=== PATIENT | male | born 1970 | race Caucasian/White ===

== ENCOUNTER 2017-11-15 09:55 | Observation (INO) | payer MEDICAID, OTHER ==
[2017-11-15] MEDS ORDERED: LR 1,000 ML IV ONE (10:02)
--- NOTE | 2017-11-15 10:08 | PDHPUP ---
History & Physical Update H&P update statement: This history and physical update is based on an assessment of the patient which was completed after admission or registration (within 24 hours), but prior to the surgery/procedure. H&P update: H&P reviewed & patient examined, no change in patient's condition since H&P completed
[2017-11-15] MEDS ORDERED: ONDANSETRON 4 MG/2 ML VIAL IVP PRN ×2 (10:11→12:10)
[2017-11-15] MEDS ORDERED: MIDAZOLAM 2 MG/2 ML VIAL IVP ONE (10:11)
[2017-11-15] MEDS ORDERED: ALBUTEROL 3 ML DEYVIAL IH PRN (10:11)
[2017-11-15] MEDS ORDERED: HYDROCODONE/APAP 5/325 TAB PO PRN (10:11)
[2017-11-15] MEDS ORDERED: NALOXONE HCL 0.4 MG/ML INJ IVP PRN (10:11)
[2017-11-15] MEDS ORDERED: HYDROmorphONE/DILAUDID 2 MG/ML INJ IVP PRN (10:11)
--- NOTE | 2017-11-15 10:11 | PDANEPAE ---
ANE History of Present Illness Inguinal Hernia Repair ANE Past Medical History - Cardiovascular History Hx Hypertension: No Hx Arrhythmias: No - Pulmonary History Hx COPD: No Hx Asthma/Reactive Airway Disease: No ANE Review of Systems Review of Systems: - Exercise capacity Exercise capacity: >=4 METS ANE Patient History - Allergies Allergies/Adverse Reactions: No Known Allergies Allergy (Verified 11/12/17 15:52) - Home Medications Home Medications: NK [No Known Home Meds] 11/12/17 [Last Taken Unknown] ANE Physical Exam - Airway Neck exam: FROM Mallampati Score: Class 2 - Pulmonary Pulmonary: clear to auscultation - Cardiovascular Cardiovascular: regular rate and rhythym - ASA Status ASA Status: II ANE Anesthesia Plan Anesthesia Plan: general endotracheal anesthesia
--- NOTE | 2017-11-15 11:30 | POSTANESTH ---
Post Anesthetic Evaluation Cardiovascular Status: Normal, Stable Respiratory Status: Normal, Stable Level of Consciousness/Mental Status: Mildly Sleepy, Arousable Pain Control: Adequate, Prn Tx Ordered Nausea/Vomiting Control: Adequate, Prn Tx Ordered Complications Possibly Related to Anesthesia: None Noted
[2017-11-15] MEDS ORDERED: LIDOCAINE 1% 300 MG/30 ML SDV ONE (11:33)
[2017-11-15] MEDS ORDERED: BUPIVACAINE 0.5% 30 ML SDV ONE (11:33)
[2017-11-15] MEDS: fentaNYL 100 MCG/2 ML INJ IVP PRN ×4 (11:40→12:43)
[2017-11-15] MEDS ORDERED: METOCLOPRAMIDE 10 MG/2 ML VIAL IVP PRN (12:10)
[2017-11-15] MEDS ORDERED: TEMAZEPAM 15 MG CAP PO PRN (12:10)
[2017-11-15] MEDS ORDERED: ACETAMINOPHEN 325 MG TAB PO PRN (12:10)
--- NOTE | 2017-11-15 12:10 | POSTOPPROG ---
Post Op Note Date of Operation: 11/15/17 Surgeon: Remi Isaac Sales Intern: none Anesthesiologist: Maegan Anesthesia: GET(General Endotracheal) Pre-op Diagnosis: BIH Post-op Diagnosis: same Procedure: Lap BIH repair with 3-D max mesh Findings: L>R Indirect IH Inf/Abcess present in the surg proc area at time of surgery?: No Complications: none Specimen(s): none
[2017-11-15] MEDS: KETOROLAC 15 MG/1 ML SDV IVP SCH ×2 (12:40→17:19)
[2017-11-15] MEDS: oxyCODONE IR 5 MG TAB PO PRN ×2 (16:17→22:11)
[2017-11-16] MEDS: KETOROLAC 15 MG/1 ML SDV IVP SCH ×3 (00:37→11:56)
[2017-11-16 11:53] VITALS: BP 126/85
--- NOTE | 2017-11-16 17:15 | ASMTCMCOM ---
CM Note CM Note Notes: Pt is a 47 y/o man admitted for a unilateral inguinal hernia w/o obstruction. Pt had hernia surgery with Dr. Isaac. Pt is being discharged today. Dr. Isaac requested that CM reserves a [facility] bed for pt for 5 days. CM emailed Kulwinder, director of [facility] services to reserve bed and left a msg for the [facility]. 3E CM to reserve [facility] bed for pt for the next 4 nights. CM will pass on report to 3E CM. No other d/c needs at this time. CM available for changes. Plan: Independent Date Signed: 11/16/2017 03:08 PM Electronically Signed By:JAYLA Montoya
== END 2017-11-16 14:09 | disposition home or self-care (01) ==
LOC: F3N 09:55 → F3E 12:58
PROVIDERS: ADMIT Surgery; ATTEND Surgery
PROC: 0YUA4JZ Supplement Bilateral Inguinal Region with Synthetic Substitute, Percutaneous Endoscopic Approach (ICD-10-PCS; principal; 2017-11-15 11:00)
DX: K40.20 Bilateral inguinal hernia, without obstruction or gangrene, not specified as recurrent (principal); Z87.891 Personal history of nicotine dependence; Z82.49 Family history of ischemic heart disease and other diseases of the circulatory system
CPT/HCPCS: C1727; C1781; J1885

== ENCOUNTER 2018-02-01 09:19 | Inpatient (IN) | payer MEDICAID ==
--- NOTE | 2018-02-01 09:53 | EDPHY ---
H & P Stated Complaint: L facial swelling, Rash Time Seen by Provider: 02/01/18 09:42 HPI/ROS: CHIEF COMPLAINT: Cheek wound HISTORY OF PRESENT ILLNESS: The patient is a 47-year-old homeless alcoholic man who is sent from [facility] for what they thought may be an abscess to his left cheek. On my evaluation the patient complains of an eschar and very slight swelling to the mucosal aspect of his left cheek and mouth. He has 3 separate eschar areas. He states he 1st noticed it about 2 or 3 days ago. He denies any recent surgical procedure in the area. He denies seizures or biting his mouth. He is also covered in small petechiae which she states developed over the last week as well as some unusual bruising to his left elbow. He states that he thought he got into some poison mary. No abdominal pain. No fever. REVIEW OF SYSTEMS: Constitutional: denies: chills, fever, recent illness, recent injury EENTM: See HPI Respiratory: denies: cough, shortness of breath Cardiac: denies: chest pain, irregular heart rate, lightheadedness, palpitations Gastrointestinal/Abdominal: denies: abdominal pain, diarrhea, nausea, vomiting, blood streaked stools Genitourinary: denies: dysuria, frequency, hematuria, pain Musculoskeletal: denies: joint pain, muscle pain Skin: See HPI Neurological: denies: headache, numbness, paresthesia, tingling, dizziness, weakness Hematologic/Lymphatic: denies: blood clots, easy bleeding, easy bruising Immunologic/allergic: denies: HIV/AIDS, transplant EXAM: GENERAL: Thin and in no acute distress. HEAD: Atraumatic, normocephalic. EYES: Pupils equal round and reactive to light, extraocular movements intact, sclera anicteric, conjunctiva are normal. ENT: Eschar/scab to mucosal aspect of left cheek. Slightly tender, bleeding if palpated. No purulence. No erythema. Minimal swelling. NECK: Normal range of motion, supple without lymphadenopathy or JVD. LUNGS: Breath sounds clear to auscultation bilaterally and equal. No wheezes rales or rhonchi. HEART: Regular rate and rhythm without murmurs, rubs or gallops. ABDOMEN: Soft, nontender, normoactive bowel sounds. No guarding, no rebound. No masses appreciated. BACK: No CVA tenderness, no spinal tenderness, step-offs or deformities EXTREMITIES: Normal range of motion, no pitting or edema. No clubbing or cyanosis. NEUROLOGICAL: Cranial nerves II through XII grossly intact. Normal speech, normal gait. 5/5 strength, normal movement in all extremities, normal sensation PSYCH: Normal mood, normal affect. SKIN: Diffuse petechiae with some unusual bruising primarily to his left elbow. Source: Patient Exam Limitations: No limitations - Personal History Current Tetanus/Diphtheria Vaccine: Yes Current Tetanus Diphtheria and Acellular Pertussis (TDAP): Yes - Medical/Surgical History Hx Asthma: No Hx Chronic Respiratory Disease: No Hx Diabetes: No Hx Cardiac Disease: No Hx Renal Disease: No Hx Cirrhosis: No Hx Alcoholism: Yes Hx HIV/AIDS: No Hx Splenectomy or Spleen Trauma: No Other PMH: Right hand surgery, right wrist, YULY hernia repair, - Family History Significant Family History: No pertinent family hx - Social History Smoking Status: Current every day smoker Alcohol Use: Heavy Drug Use: Marijuana Constitutional: Initial Vital Signs Temperature (C) 36.6 C 02/01/18 09:23 Heart Rate 74 02/01/18 09:23 Respiratory Rate 16 02/01/18 09:23 Blood Pressure 150/98 H 02/01/18 09:23 O2 Sat (%) 97 02/01/18 09:23 O2 Delivery Mode Room Air Allergies/Adverse Reactions: No Known Allergies Allergy (Verified 02/01/18 09:22) Home Medications: Medication Instructions Recorded Ibuprofen [Motrin (*)] 200 mg PO DAILY PRN 02/01/18 Medical Decision Making - Diagnostics Imaging Results: Imaging Impressions Face CT 02/01/18 09:48 Impression: 1. Left cheek subcutaneous edema which may represent cellulitis. 2. However, no evidence of drainable abscess or focal fluid collection. 3. A few left submandibular space benign-appearing lymph nodes without suspicious adenopathy. 4. No destructive osseous lesions. 5. No sinusitis. Findings and recommendations discussed with Emergency Department physician, Pantera Blackmon at 1120 hour, 02/01/2018. Final report concurs with initial preliminary interpretation. Imaging: Discussed imaging studies w/ assurance engineer Radiologist ED Course/Re-evaluation: Patient has an unusual oral lesion that does not appear infectious clinically. He is very low platelets and petechiae. He has some surprisingly normal LFTs and coags. I will order platelet transfusion and admit to the hospitalist service. I discussed the case with Alyssa who accepted for Dr. Chaves. Differential Diagnosis: Partial list of the Differential diagnosis considered include but were not limited to; thrombocytopenia, liver disease, or cancer, oral trauma and although unlikely based on the history and physical exam, I also considered abscess, cellulitis. - Data Points Laboratory Results: Laboratory Results 02/01/18 10:52 02/01/18 10:00 02/01/18 02/01/18 02/01/18 10:52 10:00 10:00 WBC 3.73 10^3/uL L 10^3/uL (3.80-9.50) RBC 3.83 10^6/uL L 10^6/uL (4.40-6.38) Hgb 12.3 g/dL L g/dL (13.7-17.5) Hct 36.0 % L % (40.0-51.0) MCV 94.0 fL fL (81.5-99.8) MCH 32.1 pg pg (27.9-34.1) MCHC 34.2 g/dL g/dL (32.4-36.7) RDW 15.0 % % (11.5-15.2) Plt Count < 3 10^3/uL L* 10^3/uL (150-400) MPV TNP Neut % (Auto) 57.7 % % (39.3-74.2) Lymph % (Auto) 33.0 % % (15.0-45.0) [place] % (Auto) 7.2 % % (4.5-13.0) Eos % (Auto) 1.3 % % (0.6-7.6) Baso % (Auto) 0.5 % % (0.3-1.7) Nucleat RBC Rel Count 0.0 % % (0.0-0.2) Absolute Neuts (auto) 2.15 10^3/uL 10^3/uL (1.70-6.50) Absolute Lymphs (auto) 1.23 10^3/uL 10^3/uL (1.00-3.00) Absolute Monos (auto) 0.27 10^3/uL L 10^3/uL (0.30-0.80) Absolute Eos (auto) 0.05 10^3/uL 10^3/uL (0.03-0.40) Absolute Basos (auto) 0.02 10^3/uL 10^3/uL (0.02-0.10) Absolute Nucleated RBC 0.00 10^3/uL 10^3/uL (0-0.01) Immature Gran % 0.3 % % (0.0-1.1) Immature Gran # 0.01 10^3/uL 10^3/uL (0.00-0.10) Platelet Estimate DECREASED L (ADEQ) Smear Review By Pending PT INR APTT Sodium 144 mEq/L mEq/L (135-145) Potassium 4.4 mEq/L mEq/L (3.3-5.0) Chloride 108 mEq/L mEq/L (97-110) Carbon Dioxide 25 mEq/l mEq/l (22-31) Anion Gap 11 mEq/L mEq/L (8-16) BUN 16 mg/dL mg/dL (7-23) Creatinine 0.6 mg/dL L mg/dL (0.7-1.3) Estimated GFR > 60 Glucose 104 mg/dL H mg/dL (70-100) Calcium 8.6 mg/dL mg/dL (8.5-10.4) Total Bilirubin 0.8 mg/dL mg/dL (0.1-1.4) Conjugated Bilirubin 0.1 mg/dL mg/dL (0.0-0.5) Unconjugated Bilirubin 0.7 mg/dL mg/dL (0.0-1.1) AST 45 IU/L IU/L (17-59) ALT 29 IU/L IU/L (21-72) Alkaline Phosphatase 86 IU/L IU/L (38-126) Total Protein 6.9 g/dL g/dL (6.3-8.2) Albumin 4.1 g/dL g/dL (3.5-5.0) Lipase 48 IU/L IU/L (23-300) HIV 1&2 Antibody Cancelled 02/01/18 02/01/18 10:00 10:00 WBC REJ RBC REJ Hgb REJ Hct REJ MCV REJ MCH REJ MCHC REJ RDW REJ Plt Count REJ MPV REJ Neut % (Auto) REJ Lymph % (Auto) REJ [place] % (Auto) REJ Eos % (Auto) REJ Baso % (Auto) REJ Nucleat RBC Rel Count REJ Absolute Neuts (auto) REJ Absolute Lymphs (auto) REJ Absolute Monos (auto) REJ Absolute Eos (auto) REJ Absolute Basos (auto) REJ Absolute Nucleated RBC REJ Immature Gran % REJ Immature Gran # REJ Platelet Estimate Smear Review By PT 13.5 SEC SEC (12.0-15.0) INR 1.01 (0.83-1.16) APTT 23.8 SEC SEC (23.0-38.0) Sodium Potassium Chloride Carbon Dioxide Anion Gap BUN Creatinine Estimated GFR Glucose Calcium Total Bilirubin Conjugated Bilirubin Unconjugated Bilirubin AST ALT Alkaline Phosphatase Total Protein Albumin Lipase HIV 1&2 Antibody Medications Given: Discontinued Medications Acetaminophen (Tylenol) 650 mg PO ONCE ONE Stop: 02/01/18 14:01 Last Admin: 02/01/18 14:53 Dose: 650 mg Diphenhydramine HCl (Benadryl) 25 mg PO ONCE ONE Stop: 02/01/18 14:01 Last Admin: 02/01/18 14:53 Dose: 25 mg Departure - Departure Disposition: [facility] Acute Clinical Impression: Oral mucosal lesion, Thrombocytopenia Condition: Fair
[2018-02-01 10:21] LABS: INR 1.01 (0.83-1.16); PROTIME(PATIENT) 13.5 SEC (12.0-15.0)
[2018-02-01] MEDS ORDERED: IOPAMIDOL (ISOVUE-300) 100 ML BTL ONE (10:46)
[2018-02-01 11:27] LABS: PLATELET COUNT < 3 10^3/uL (150-400)
[2018-02-01] MEDS ORDERED: ONDANSETRON DISINTEGRATING 4 MG TAB PO PRN (11:50)
[2018-02-01] MEDS ORDERED: ONDANSETRON 4 MG/2 ML VIAL IVP PRN (11:50)
--- NOTE | 2018-02-01 13:10 | GHP ---
[f rep st] HISTORY AND PHYSICAL DATE OF ADMISSION: 02/01/2018 CHIEF COMPLAINT: Thrombocytopenia. HISTORY OF PRESENT ILLNESS: A 47-year-old homeless male, sent from [facility] for a concern of an abscess of left cheek. He thought he got poison mary , because he developed dark red/purplish blotchy spots all over his body after being in the [place]. Has had swelling inner left cheek that has progressed over last couple of days. It is mildly tender. No fevers, chills, or sweats. No nausea, vomiting, or diarrhea. No headaches. No vision changes. No weight gain or loss. Was bit by a dog on right calf a few weeks ago that was swollen, but grossly red or purulent. REVIEW OF SYSTEMS: I completed a 10-point review of systems and negative except as noted in the HPI. PAST MEDICAL HISTORY: None. PAST SURGICAL HISTORY: Bilateral hernia repair. FAMILY HISTORY: His dad of an [place] and mother with breast cancer and skin cancer. MEDICATIONS: None. ALLERGIES: None. SOCIAL HISTORY: He is homeless. He stays in the retirement. He worked various jobs. Drinks a few beers a day. Does have some binge drinking. Smokes marijuana. Denies other illicits. Has not been sexually active for 3 years. PHYSICAL EXAMINATION: VITAL SIGNS: Temperature 36.6, blood pressure is 150/98 , heart rate is in the 70s, respirations , and 96% on room air. GENERAL: He well appearing. Anxious. Lying in bed. In no acute distress. HEENT: PERRLA. Left inner buccal mucosa with a dark, raised hematoma. Minimal surrounding erythema. There is no purulence. He has some swelling over that cheek, but no redness. Other petechiae over the palate. CV: Regular rate and rhythm. LUNGS: Clear. ABDOMEN: No hepatosplenomegaly. : No Holder. MUSCULOSKELETAL: 5/5 upper and lower extremity strength. SKIN: Petechiae over all extremities, back, and abdomen. He has a bruise over his right monte, a site of previous dog bite. Hematoma over the arms and lower legs. PSYCHIATRIC: Alert and oriented x3. NEUROLOGIC: 2 through 12 are intact. LABORATORIES: WBC 3, hemoglobin 12, hematocrit 36, platelets less than 3. Coags are within normal. Sodium 141, potassium 4.4, chloride 108, carbon dioxide 25, creatinine 0.6, glucose 104. LFTs are normal. Lipase is normal. HIV and hepatitis are pending. Face CT: Left cheek subcutaneous edema. No drainable abscess or focal fluid collection. Few left submandibular space benign-appearing lymph nodes. ASSESSMENT AND PLAN: 1. Thrombocytopenia: DDx: ITP, alcohol, malignancy, infection. Mouth lesion appears to be hematoma and not infection, no abscess on CT. Afebrile. Did have a dog bite a few weeks ago over his right calf, but this area looks healed and denied infectious symptoms. Not on offending medications. Check HIV, hepatitis C , folate, and B12. Smear is pending. Discussed the case with Dr. Scott who will consult. Now recs IVIG 1gm/kg. 2. Concern for facial abscess: buccal hematoma, no abscess on CT 3. Alcohol use. drinks daily. He was counseled on cessation. Monitor for alcohol withdrawal. None now. 4. Tobacco dependence. Nicotine patch. 5. Marijuana use. Counseled on cessation. 6. Diet. Regular. 7. DVT prophylaxis. Ambulatory. No SCDs or Lovenox with severe thrombocytopenia. DISPOSITION: The patient warrants inpatient admission given the acute thrombocytopenia and the high risk for significant bleeding, requiring further evaluation by Oncology and IVIG /[id number]/MODL MTDD
[2018-02-01] MEDS ORDERED: ACETAMINOPHEN 325 MG TAB PO ONE (14:00)
[2018-02-01] MEDS ORDERED: diphenhydrAMINE 25 MG CAP PO ONE (14:00)
[2018-02-01] MEDS ORDERED: IMMUNE GLOBULIN 20 GM/200 ML VIAL IV ONE (14:30)
[2018-02-01 14:31] LABS: HEPATITIS C ANTIBODY TOTAL NEGATIVE (NEGATIVE); HIV TYPE 1 AND 2 NEGATIVE (NEGATIVE)
--- NOTE | 2018-02-01 14:42 | GCON ---
[f rep st] CONSULTATION HEMATOLOGY CONSULT REASON FOR CONSULTATION: Thrombocytopenia. HISTORY OF PRESENT ILLNESS: Ilya is a 47-year-old otherwise healthy gentleman, who had noticed ov er the last 7-10 days, purplish spots over his arms and legs. He also was bit by a dog about a week ago and developed a hematoma back there. He otherwise had been feeling well with no constitutional s ymptoms. He had a nose bleed, but no other bleeding. However, the last couple days, he developed th e same purplish lesions in his mouth, particularly a large 1 on the left buccal membrane. He initial ly thought maybe it was a rash from an exposure such as poison mary and since it was not getting harjit r, he presented to the emergency room. While there, a CBC was performed that showed he had a very lo w platelet count. He is admitted to the hospital for treatment. PAST MEDICAL HISTORY: ALLERGIES: No known drug allergies. HOME MEDICATIONS: Really just occasional ibuprofen. CHRONIC ILLNESSES: Are none. SURGICAL HISTORY: Includes inguinal hernia repair 2 months ago. FAMILY HISTORY: Mother is alive, he believes, he is not in contact with her. She has a previous his tory of breast cancer. Father at age 70 from an [place]. He does not have children. SOCIAL HISTORY: He is single. He is originally from [place] and grew up here. However, he is homel ess because he cannot afford to live here. He smoked since age 15, off and on but generally quit. H as about a 25-30 pack year history. Used to drink heavy alcohol past, until a friend about 7 ye ars ago. Since then, he has on average a couple of beers a day. He works general accounting clerk jobs locally . REVIEW OF SYSTEMS: 10-point review of systems performed. Pertinent positives as per HPI, otherwise negative. PHYSICAL EXAM: VITAL SIGNS: Temp is 36.8, pulse 77, blood pressure is 120/83. GENERAL: He is a wel l-appearing gentleman, no distress. HEENT: Sclerae nonicteric. Extraocular muscles are intact. Ora l mucosa does show several purpuric lesions. LUNGS: Clear. CARDIAC: Regular. ABDOMEN: Soft, with out hepatosplenomegaly. MUSCULOSKELETAL: Nontender. NEUROLOGICAL: Grossly intact. SKIN: Shows m ultiple petechiae and bruising and purpura throughout. LABS: Coags are normal. Chemistry is unremarkable. B12 and folic acid were normal. CBC: White cou nt 3700, with an ANC of 2200, hemoglobin is 12.3 g/dL, platelet count is less than 3, and the smear e stimate shows it is decreased. Because of concern of a lesion on his cheek he had a face CT that shows a little bit of edema, but no abscess and otherwise unremarkable. IMPRESSION: 1. 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 2. Minimally decreased white count and red count. PLAN: At this point, it looks to be just an acute ITP of unknown cause, but there is nothing on exam to indicate that it is secondary ITP. He does have wet purpura that puts him very high risk of inte rnal bleeding, so I have recommended admission to the hospital and treatment with IVIG. He is not cu rrently actively bleeding, so he does not need a transfusion at this time. I also recommend starting steroids with high-dose dexamethasone 40 mg daily for 4 days. If he has a good response to this, we can repeat it for at least a couple more cycles in 2-3 weeks. I also explained to him that these ca n be related to underlying disorder, so we will be getting other labs such as HIV and hepatitis testi ng. At this point, I do not think he needs a bone marrow biopsy, but if he does not respond as expec ese, or other abnormalities show up, then may need to do that in the future. If he has an excellent response overnight, he might be able to go home, but will make that decision in the morning. I expla ined the risks of each of the treatments and he is ready to proceed on. /[id number]/MODL
[2018-02-01] MEDS: DEXAMETHASONE 4 MG TAB PO SCH (15:25)
--- NOTE | 2018-02-01 15:32 | PDMN ---
Medical Necessity Medical necessity: Pt meets inpt criteria per MD order and hematology GRG, est LOS>2MN for further workup and treatment of acute thrombocytopenia w/plt count severly low at <3, high risk for bleeding, hemeatology consult, will receive IVIG, also presents with mouth lesion, other comorbidities include homelessness , daily alcohol use-monitor for WD.
--- NOTE | 2018-02-01 16:01 | ASMTCMCOM ---
CM Note CM Note Notes: Pt's chart reviewed for D/C planning. Pt is a 47 y/o homeless male, sent from [facility] for a concern of an abcess of left cheek. Swelling of inner left cheek has progressed over last couple of days. Pt stays in [facility]. He's worked various jobs. He states that he sometimes binge drinks in addition to drinking a few beers a day. He smokes marijuana. His mother's number is [phone]. The quality of the relationship is unknown. CM will follow. D/C Plan: TBD Date Signed: 02/01/2018 04:00 PM Electronically Signed By:Lulu Avina
[2018-02-01 16:06] LABS: HEPATITIS B SURFACE ANTIGEN NEGATIVE (NEGATIVE)
--- NOTE | 2018-02-01 17:42 | ASMTCMCOM ---
Date Signed: 02/01/2018 05:41 PM Electronically Signed By:Jolene Nagy RN
[2018-02-02 04:54] LABS: PLATELET COUNT < 3 10^3/uL (150-400)
[2018-02-02] MEDS: DEXAMETHASONE 4 MG TAB PO SCH (08:55)
--- NOTE | 2018-02-02 11:33 | SOAPPROG ---
LEE Progress Note Assessment/Plan: E&M for thrombocytopenia * Presumed acute ITP: platelet count is still low only 12 hours after starting steroids and IVIg. However, clinically he seems to be starting to improve. Continue steroids. Will check cbc in am and if still very low, will give another dose of IVIg; sometimes takes up to 72 hours to take effect. Other labs coming back unremarkable. No need for transfusion at this time. Subjective: Tolerated dex and IVIg without significant issues. Has noticed bruising and petechiae is getting better. Objective: Vital Signs Temp Pulse Resp BP Pulse Ox 36.7 C 68 12 128/90 H 97 02/02/18 08:58 02/02/18 08:58 02/02/18 08:58 02/02/18 08:58 02/02/18 08:58 Laboratory Results 02/02/18 03:59 02/01/18 02/02/18 02/03/18 05:59 05:59 05:59 Intake Total 550 Output Total 700 Balance -150 PT 13.5 SEC (12.0-15.0) 02/01/18 10:00 INR 1.01 (0.83-1.16) 02/01/18 10:00 Laboratory Tests 02/01/18 02/01/18 02/01/18 10:52 12:05 12:05 WBC 3.73 L Hgb 12.3 L Plt Count < 3 L* Vitamin B12 406 Hep Bs Antigen Hepatitis C Antibody NEGATIVE HIV 1&2 Antibody NEGATIVE 02/01/18 02/02/18 14:30 03:59 WBC 3.50 L Hgb 12.1 L Plt Count < 3 L* Vitamin B12 Hep Bs Antigen NEGATIVE Hepatitis C Antibody HIV 1&2 Antibody Physical Exam - Physical Exam General Appearance: no apparent distress EENT: other (purpura is healing) Respiratory: lungs clear Cardiac/Chest: regular rate, rhythm Skin: other (petechiae is improved) ICD10 Worksheet Patient Problems: Problems Problem Status Onset Oral mucosal lesion Acute Thrombocytopenia Acute
--- NOTE | 2018-02-02 13:41 | HOSPPROG ---
Hospitalist Progress Note Assessment/Plan: #Acute ITP -etiology unclear -Steroids and IVIG per Hematology #hx of ETOH use, not in WD #Tobacco abuse disorder -nicotine replacement #Marijuana use Plan: repeat labs in a.m. cont steroids further IVIG per Heme no indications for transfusion at this time Subjective: no cp or sob. no n/v. Objective: Vital Signs Temp Pulse Resp BP Pulse Ox 36.7 C 87 12 126/70 H 97 02/02/18 12:20 02/02/18 12:20 02/02/18 12:20 02/02/18 12:20 02/02/18 12:20 Laboratory Results 02/02/18 03:59 02/01/18 02/02/18 02/03/18 05:59 05:59 05:59 Intake Total 550 Output Total 700 Balance -150 PT 13.5 SEC (12.0-15.0) 02/01/18 10:00 INR 1.01 (0.83-1.16) 02/01/18 10:00 - Physical Exam Constitutional: no apparent distress Eyes: PERRL Ears, Nose, Mouth, Throat: moist mucous membranes, hearing normal Cardiovascular: regular rate and rhythym, No edema Respiratory: no respiratory distress, no rales or rhonchi, clear to auscultation Gastrointestinal: normoactive bowel sounds, soft, non-tender abdomen Skin: warm Neurologic: AAOx3 Psychiatric: interacting appropriately, not anxious, not encephalopathic Lymph, Heme, Immunologic: No petechiae ICD10 Worksheet Patient Problems: Problems Problem Status Onset Oral mucosal lesion Acute Thrombocytopenia Acute
[2018-02-03 05:00] LABS: PLATELET COUNT < 3 10^3/uL (150-400)
[2018-02-03] MEDS: DEXAMETHASONE 4 MG TAB PO SCH (08:47)
--- NOTE | 2018-02-03 11:37 | SOAPPROG ---
SOAP Progress Note Assessment/Plan: E&M for thrombocytopenia * Presumed acute ITP: platelet count is still low 36 hours after starting steroids and IVIg. Mouth is better but with new bruising and nose bleed. Will give another dose of IVIg along with unit of platelets. Will continue steroids. Will immunize in case want to give rituximab. If not improving but bleeding stops, can look into outpatient N-plate. Subjective: Having more bleeding and bruising. Cannot get nose bleed to stop which is worrying him. Objective: Vital Signs Temp Pulse Resp BP Pulse Ox 36.7 C 62 12 110/72 97 02/03/18 07:55 02/03/18 07:55 02/03/18 07:55 02/03/18 07:55 02/03/18 07:55 Laboratory Results 02/03/18 04:23 02/03/18 04:23 02/02/18 02/03/18 02/04/18 05:59 05:59 05:59 Intake Total 550 500 Output Total 700 Balance -150 500 PT 13.5 SEC (12.0-15.0) 02/01/18 10:00 INR 1.01 (0.83-1.16) 02/01/18 10:00 Physical Exam - Physical Exam General Appearance: no apparent distress EENT: other (actively bleeding from left nostrile. Oral lesions are better) Respiratory: lungs clear Cardiac/Chest: regular rate, rhythm Skin: other (petechiae are better but bruising is worse) ICD10 Worksheet Patient Problems: Problems Problem Status Onset Oral mucosal lesion Acute Thrombocytopenia Acute
--- NOTE | 2018-02-03 12:14 | HOSPPROG ---
Hospitalist Progress Note Assessment/Plan: #Acute ITP -Steroids and IVIG per Hematology. He will get additional IVIG today -Platelets transfusion per Hematology today -W/u pending #Acute Nose bleed #hx of ETOH use, not in WD #Tobacco abuse disorder -not on nicotine replacement. He does not want #Marijuana use Subjective: no cp or sob. He has a nose bleed. Objective: Vital Signs Temp Pulse Resp BP Pulse Ox 36.6 C 64 14 118/72 96 02/03/18 12:01 02/03/18 12:01 02/03/18 12:01 02/03/18 12:01 02/03/18 12:01 Laboratory Results 02/03/18 04:23 02/03/18 04:23 02/02/18 02/03/18 02/04/18 05:59 05:59 05:59 Intake Total 550 500 Output Total 700 Balance -150 500 PT 13.5 SEC (12.0-15.0) 02/01/18 10:00 INR 1.01 (0.83-1.16) 02/01/18 10:00 - Physical Exam Constitutional: uncomfortable Eyes: PERRL, EOMI Ears, Nose, Mouth, Throat: moist mucous membranes, other (nose bleed left nostril) Cardiovascular: regular rate and rhythym, No edema Respiratory: no respiratory distress, no rales or rhonchi, clear to auscultation Gastrointestinal: normoactive bowel sounds, soft, non-tender abdomen Genitourinary: no bladder fullness Skin: warm Musculoskeletal: full muscle strength Neurologic: AAOx3 Psychiatric: interacting appropriately, not anxious, not encephalopathic Lymph, Heme, Immunologic: petechiae ICD10 Worksheet Patient Problems: Problems Problem Status Onset Oral mucosal lesion Acute Thrombocytopenia Acute
[2018-02-03] MEDS ORDERED: HAEMOPH B POLY CONJ-TET TOX/PF 0.5 ML VIAL IM ONE (13:00)
[2018-02-03] MEDS ORDERED: [UNRECOGNIZED DRUG - OTHER] IM ONE (13:00)
[2018-02-03] MEDS ORDERED: PNEUMOC 13-VAL CONJ-DIP CRM/PF 0.5 ML SYR IM ONE (13:00)
[2018-02-03] MEDS ORDERED: diphenhydrAMINE 25 MG CAP PO ONE (14:00)
[2018-02-03] MEDS ORDERED: ACETAMINOPHEN 325 MG TAB PO ONE (14:00)
[2018-02-03] MEDS ORDERED: IMMUNE GLOBULIN 20 GM/200 ML VIAL IV ONE (14:30)
[2018-02-03] MEDS: OXYMETAZOLINE 30 ML NASAL SPRAY EACHNARE PRN (20:11)
[2018-02-03] MEDS ORDERED: LORazepam 2 MG/ML INJ IVP ONE (21:15)
[2018-02-04 05:28] LABS: PLATELET COUNT < 3 10^3/uL (150-400)
[2018-02-04] MEDS ORDERED: LORazepam 2 MG/ML INJ IVP ONE (06:52)
[2018-02-04] MEDS: DEXAMETHASONE 4 MG TAB PO SCH (09:31)
--- NOTE | 2018-02-04 10:58 | ASMTCMCOM ---
CM Note CM Note Notes: CM met with Pt. Pt concerned that his belongings he keeps in a locker at [facility] will be thrown out due to him not renewing it . [facility] contacted. CM spoke with Kulwinder Jackson. Items will be kept in locker or in storage. Pt agitated. He is irritated that he hasn't received a diagnosis yet. Nurse reported Pt thought of leaving last night. "If they don't figure it out I'm going to have to go to another hospital". CM to follow. D/C Plan: TBD Date Signed: 02/04/2018 10:57 AM Electronically Signed By:Lulu Avina
--- NOTE | 2018-02-04 11:57 | SOAPPROG ---
SOAP Progress Note Assessment/Plan: E&M for thrombocytopenia * Presumed acute ITP: platelet count is still low 60 hours after starting steroids and IVIg. Mouth is better as well as bruising and petechiae. Nose bleed is still an issue. Ok to give another unit of platelets. Will continue steroids to complete 4 days. Will check H.pylori serology as therapy might help. Discussed with him regarding bone marrow biopsy but at this point doesn' t seem necessary. Given immunization and if not getting better can start rituximab. If not improving but bleeding stops, can look into outpatient N- plate. 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 Will check light chains and if ok will monitor. Subjective: Trouble with continuing nose bleed yesterday and overnight. No other bleeding and bruising seems better. Objective: Vital Signs Temp Pulse Resp BP Pulse Ox 36.6 C 74 15 150/90 H 99 02/04/18 08:08 02/04/18 08:08 02/04/18 08:08 02/04/18 08:08 02/04/18 08:08 Laboratory Results 02/04/18 04:44 02/04/18 04:44 02/03/18 02/04/18 02/05/18 05:59 05:59 05:59 Intake Total 500 750 Balance 500 750 PT 13.5 SEC (12.0-15.0) 02/01/18 10:00 INR 1.01 (0.83-1.16) 02/01/18 10:00 Physical Exam - Physical Exam General Appearance: no apparent distress EENT: other (No oral purpura; left nostril with rhinorocket in place) Skin: other (bruising and petechiae is better) ICD10 Worksheet Patient Problems: Problems Problem Status Onset Oral mucosal lesion Acute Thrombocytopenia Acute
--- NOTE | 2018-02-04 13:37 | HOSPPROG ---
Hospitalist Progress Note Assessment/Plan: #Acute ITP -Steroids and IVIG per Hematology. -Platelets cont to be low and have not improved despite 2 doses of IVIG and day 4 steroids. -Will provide additional platelets today pending Hematology evaluaton -Await additional Hematology reccs #Acute Nose bleed: #hx of ETOH use, not in WD #Tobacco abuse disorder -not on nicotine replacement. He does not want #Marijuana use Subjective: intermittent nose bleed. He is frustrated. Platelets have not improved Objective: Vital Signs Temp Pulse Resp BP Pulse Ox 36.6 C 74 15 150/90 H 99 02/04/18 08:08 02/04/18 08:08 02/04/18 08:08 02/04/18 08:08 02/04/18 08:08 Laboratory Results 02/04/18 04:44 02/04/18 04:44 02/03/18 02/04/18 02/05/18 05:59 05:59 05:59 Intake Total 500 750 Balance 500 750 PT 13.5 SEC (12.0-15.0) 02/01/18 10:00 INR 1.01 (0.83-1.16) 02/01/18 10:00 - Physical Exam Constitutional: no apparent distress Eyes: PERRL, EOMI Ears, Nose, Mouth, Throat: moist mucous membranes Cardiovascular: regular rate and rhythym, No JVD Respiratory: no respiratory distress, no rales or rhonchi, clear to auscultation Gastrointestinal: normoactive bowel sounds, soft, non-tender abdomen Skin: warm Neurologic: AAOx3 Psychiatric: interacting appropriately, not anxious, not encephalopathic Lymph, Heme, Immunologic: petechiae ICD10 Worksheet Patient Problems: Problems Problem Status Onset Oral mucosal lesion Acute Thrombocytopenia Acute
[2018-02-04] MEDS ORDERED: PANTOPRAZOLE SODIUM 40 MG TAB PO SCH (15:15)
[2018-02-04] MEDS: PANTOPRAZOLE SODIUM 40 MG TAB PO SCH ×2 (18:07→20:47)
[2018-02-04] MEDS: CLARITHROMYCIN 500 MG TAB PO SCH (20:47)
[2018-02-04] MEDS: LORazepam 1 MG TAB PO PRN (20:47)
[2018-02-04] MEDS: ACETAMINOPHEN 325 MG TAB PO PRN (21:42)
[2018-02-04] MEDS: traZODone 50 MG TAB PO PRN (22:21)
[2018-02-05 05:02] LABS: PLATELET COUNT < 3 10^3/uL (150-400)
[2018-02-05] MEDS: PANTOPRAZOLE SODIUM 40 MG TAB PO SCH ×2 (08:50→22:16)
[2018-02-05] MEDS: CLARITHROMYCIN 500 MG TAB PO SCH ×2 (08:50→22:16)
--- NOTE | 2018-02-05 12:17 | SOAPPROG ---
SOAP Progress Note Assessment/Plan: Assessment/Plan: 47 yo man w severe thrombocytopenia 1. presumed ITP platelet count still low after steroids and IVIg Mouth continues to improve and no more epistaxis given length of time w low platelets and no improvement after 4 days, plan to give Rituxan today he was given immunizations by Dr Scott prior; hepatitis serologies negative Notably, spleen mildly enlarged on exam today and pt w small M spike - no obvious LAD on exam I would probably favor bone marrow biopsy as outpt once platelets improve if pts starts to bleed, would given emergent platelets, otherwise hold today 2. anxiety - due to #1 and steroids, monitor 02/05/18 12:08 02/05/18 12:10 Subjective: pt remains anxious denotes new sx bruising improved Objective: Vital Signs Temp Pulse Resp BP Pulse Ox 36.9 C 91 16 144/78 H 99 02/05/18 08:34 02/05/18 08:34 02/05/18 08:34 02/05/18 08:34 02/05/18 08:34 Laboratory Results 02/05/18 04:36 02/04/18 04:44 02/04/18 02/05/18 02/06/18 05:59 05:59 05:59 Intake Total 750 500 Balance 750 500 PT 13.5 SEC (12.0-15.0) 02/01/18 10:00 INR 1.01 (0.83-1.16) 02/01/18 10:00 ICD10 Worksheet Patient Problems: Problems Problem Status Onset Oral mucosal lesion Acute Thrombocytopenia Acute
--- NOTE | 2018-02-05 12:19 | SOAPPROG ---
SOAP Progress Note Assessment/Plan: Assessment/Plan: 47 yo man w severe thrombocytopenia 1. presumed ITP platelet count still low after steroids and IVIg Mouth continues to improve and no more epistaxis given length of time w low platelets and no improvement after 4 days, plan to give Rituxan today he was given immunizations by Dr Scott prior; hepatitis serologies negative Notably, spleen mildly enlarged on exam today and pt w small M spike - no obvious LAD on exam I would probably favor bone marrow biopsy as outpt once platelets improve if pts starts to bleed, would given emergent platelets, otherwise hold today 2. anemia - nosebleeds; no active bleeding at this time 3. anxiety - due to #1 and steroids, monitor 02/05/18 12:08 02/05/18 12:10 02/05/18 12:19 Subjective: added physical exam below Objective: Vital Signs Temp Pulse Resp BP Pulse Ox 36.9 C 91 16 144/78 H 99 02/05/18 08:34 02/05/18 08:34 02/05/18 08:34 02/05/18 08:34 02/05/18 08:34 Laboratory Results 02/05/18 04:36 02/04/18 04:44 02/04/18 02/05/18 02/06/18 05:59 05:59 05:59 Intake Total 750 500 Balance 750 500 PT 13.5 SEC (12.0-15.0) 02/01/18 10:00 INR 1.01 (0.83-1.16) 02/01/18 10:00 Gen - anxious HEENT - OP petechiae improved CV - RRR Chest - CTA abd - spleen tip palpated below costal margin ext - ecchymoses improving but still present ICD10 Worksheet Patient Problems: Problems Problem Status Onset Oral mucosal lesion Acute Thrombocytopenia Acute
[2018-02-05] MEDS ORDERED: DEXAMETHASONE 10 MG in NS 50 ML IV SCH (13:00)
[2018-02-05] MEDS ORDERED: ACETAMINOPHEN 325 MG TAB PO SCH (13:00)
--- NOTE | 2018-02-05 13:37 | HOSPPROG ---
Hospitalist Progress Note Assessment/Plan: #Acute ITP -Steroids and IVIG per Hematology. -Rituximab to be started today -if bleed, will need platelets #Acute Nose bleed -Rhino Rocket, continue -Platelets as needed #hx of ETOH use, not in WD #Tobacco abuse disorder -not on nicotine replacement. He does not want #Marijuana use Subjective: no cp or sob. no new bleeding. Still with low platelets. Objective: Vital Signs Temp Pulse Resp BP Pulse Ox 36.9 C 91 16 144/78 H 99 02/05/18 08:34 02/05/18 08:34 02/05/18 08:34 02/05/18 08:34 02/05/18 08:34 Laboratory Results 02/05/18 04:36 02/04/18 04:44 02/04/18 02/05/18 02/06/18 05:59 05:59 05:59 Intake Total 750 500 Balance 750 500 PT 13.5 SEC (12.0-15.0) 02/01/18 10:00 INR 1.01 (0.83-1.16) 02/01/18 10:00 - Physical Exam Constitutional: no apparent distress Eyes: PERRL, EOMI Ears, Nose, Mouth, Throat: moist mucous membranes, hearing normal Cardiovascular: regular rate and rhythym, No edema Respiratory: no respiratory distress, no rales or rhonchi, clear to auscultation Gastrointestinal: normoactive bowel sounds, soft, non-tender abdomen Skin: warm Musculoskeletal: full muscle strength Neurologic: AAOx3 Psychiatric: interacting appropriately, not anxious, not encephalopathic Lymph, Heme, Immunologic: No petechiae ICD10 Worksheet Patient Problems: Problems Problem Status Onset Oral mucosal lesion Acute Thrombocytopenia Acute
[2018-02-05] MEDS ORDERED: RITUXIMAB IV SCH (14:00)
[2018-02-05] MEDS ORDERED: NS IV SCH (14:00)
[2018-02-05] MEDS: traZODone 50 MG TAB PO PRN (22:16)
[2018-02-06 05:30] LABS: PLATELET COUNT < 3 10^3/uL (150-400)
[2018-02-06] MEDS: PANTOPRAZOLE SODIUM 40 MG TAB PO SCH ×2 (09:03→19:34)
[2018-02-06] MEDS: CLARITHROMYCIN 500 MG TAB PO SCH ×2 (09:03→19:34)
--- NOTE | 2018-02-06 12:00 | SOAPPROG ---
SOAP Progress Note Assessment/Plan: Assessment/Plan: 47 yo man w severe thrombocytopenia 1. presumed refractory ITP vs other platelet count still low after steroids, IVIg and Rituxan (IVIg given x 2, dex 40mg x 4 days last 02/04/2018, Rituxan 02/05/2018) Mouth continues to improve and no more epistaxis given length of time w low platelets and no improvement after 5 days, plan given another IVIg today and restart dex Hgb dropping without gross e/o bleeding but will transfuse 1unit platelets today Notably, spleen mildly enlarged on exam and pt w small M spike; LDH high at 800 Pt could have underlying low grade lymphoma - will check abd US today and would prob favor bone marrow biopsy if platelets continue to be refractory Nplate can be ordered tomorrow from [facility] if needed (pharmacy aware) received pre-splenectomy immunizations will look at PBS again today to rule out schistocytes but none seen previously 2. anemia - nosebleeds; no obvious bleeding at this time but Hgb cont to drop 3. anxiety - due to #1 and steroids, monitor 02/06/18 12:01 02/06/18 12:04 02/06/18 12:05 Subjective: Pt angry platelets are not increasing denies bleeding Objective: Vital Signs Temp Pulse Resp BP Pulse Ox 36.8 C 90 16 130/80 H 97 02/06/18 08:55 02/06/18 08:55 02/06/18 08:55 02/06/18 08:55 02/06/18 08:55 Laboratory Results 02/06/18 04:48 02/04/18 04:44 02/05/18 02/06/18 02/07/18 05:59 05:59 05:59 Intake Total 500 1250 Balance 500 1250 PT 13.5 SEC (12.0-15.0) 02/01/18 10:00 INR 1.01 (0.83-1.16) 02/01/18 10:00 Gen - NAD, angry HEENT - petechiae almost gone in mouth CV - RRR Lungs - CTAB abd - soft, NT/ND, spleen tip palpated Ext - ecchymosis improved ICD10 Worksheet Patient Problems: Problems Problem Status Onset Oral mucosal lesion Acute Thrombocytopenia Acute
[2018-02-06] MEDS: DEXAMETHASONE 4 MG TAB PO SCH (12:20)
--- NOTE | 2018-02-06 14:00 | HOSPPROG ---
Hospitalist Progress Note Assessment/Plan: #Acute ITP -Steroids and IVIG per Hematology. Will likely restart today -Rituximab given on 02/05 -Will get transfusion of platelets today -Lymphoma w/u per Onc #Acute Nose bleed -Rhino Rocket, continue -Platelets as needed. Will get transfusion today #hx of ETOH use, not in WD #Tobacco abuse disorder -not on nicotine replacement. He does not want #H-Pylori: Abx #Marijuana use Plan: Platelets have not increased since admission. Hematology is managing. will get platelet transfusion today. His Hgb is slightly decreased from yesterday and the day previous, but holding steady. Will cont to monitor. He does not have any known active bleeding. Onc started PPI BID and will cont for now but no e/o active bleeding. Subjective: no cp or sob. no n/v. no nose bleed currently. Platelets have not increased Objective: Vital Signs Temp Pulse Resp BP Pulse Ox 36.8 C 90 16 130/80 H 97 02/06/18 08:55 02/06/18 08:55 02/06/18 08:55 02/06/18 08:55 02/06/18 08:55 Laboratory Results 02/06/18 04:48 02/04/18 04:44 02/05/18 02/06/18 02/07/18 05:59 05:59 05:59 Intake Total 500 1250 Balance 500 1250 PT 13.5 SEC (12.0-15.0) 02/01/18 10:00 INR 1.01 (0.83-1.16) 02/01/18 10:00 - Physical Exam Constitutional: no apparent distress Eyes: PERRL Ears, Nose, Mouth, Throat: moist mucous membranes, hearing normal Cardiovascular: regular rate and rhythym Respiratory: no respiratory distress, no rales or rhonchi, clear to auscultation Gastrointestinal: normoactive bowel sounds, soft, non-tender abdomen Skin: warm Neurologic: AAOx3 Psychiatric: interacting appropriately, not anxious, not encephalopathic Lymph, Heme, Immunologic: petechiae ICD10 Worksheet Patient Problems: Problems Problem Status Onset Oral mucosal lesion Acute Thrombocytopenia Acute
[2018-02-06] MEDS ORDERED: IMMUNE GLOBULIN 20 GM/200 ML VIAL IV ONE (14:30)
[2018-02-06] MEDS: traZODone 50 MG TAB PO PRN (21:58)
[2018-02-06] MEDS: LORazepam 1 MG TAB PO PRN (21:58)
[2018-02-07 05:52] LABS: PLATELET COUNT < 3 10^3/uL (150-400)
--- NOTE | 2018-02-07 09:07 | SOAPPROG ---
LEE Progress Note Assessment/Plan: Assessment: 1) Severe ITP 2) Monoclonal protein (low level) 3) Anemia 4) Positive H. Pylori serology Plan: I agree that the overall picture is c/w ITP. Thus far he has not responded to high dose dexamethasone. IVIG or 1 dose Rituxan. I do think that a bone marrow biopsy is reasonable at this point. I discussed this with him this morning. Given the degree of thrombocytopenia, there will be an increase in the risk of procedural related bleeding. He declines this procedure for now. I think that the best next step is Romiplostim 1 mg/kg once weekly. I discussed this with him. He consents. Pharmacy will procure this from [place] and it will be given later today. He is being given a second course of high dose Dexamethasone. For now, will continue this, though not sure how effective this will be at this point. He does have a positive H. Pylori serology, and this has been associated with ITP. Case reports indicate that treatment in the H. Pylori results in resolution of the ITP in the majority of cases. Based on this I recommend definitively treating his H. Pylori. Will plan on giving a second dose of Rituxan next week. I am hopeful that he will respond to treatment of H. Pylori and Romiplostim, and could be d/c home later this week. Plan d/w patient, Dr. Loving, Pharmacy. Patient's questions answered. 02/07/18 09:01 02/07/18 09:03 02/07/18 09:08 Subjective: No active bleeding. Feels his petichiae are better. Nasal packing remains in place. Objective: Vital Signs Temp Pulse Resp BP Pulse Ox 36.5 C 83 16 127/88 H 95 02/07/18 08:17 02/07/18 08:17 02/07/18 08:17 02/07/18 08:17 02/07/18 08:17 Laboratory Results 02/07/18 04:56 02/07/18 04:56 02/06/18 02/07/18 02/08/18 05:59 05:59 05:59 Intake Total 1250 2400 Balance 1250 2400 PT 13.5 SEC (12.0-15.0) 02/01/18 10:00 INR 1.01 (0.83-1.16) 02/01/18 10:00 - Time Spent With Patient Time Spent With Patient: 40 minutes Physical Exam - Physical Exam General Appearance: alert, no apparent distress EENT: PERRL/EOMI, other (No oral lesions or petichiae. Nasal packing in place without active bleeding) Respiratory: lungs clear Cardiac/Chest: regular rate, rhythm Abdomen: non-tender, soft Skin: other (Faint scattered pettichiae) Neuro/Psych: alert, normal mood/affect ICD10 Worksheet Patient Problems: Problems Problem Status Onset Oral mucosal lesion Acute Thrombocytopenia Acute
[2018-02-07] MEDS: CLARITHROMYCIN 500 MG TAB PO SCH ×2 (09:54→20:05)
[2018-02-07] MEDS: PANTOPRAZOLE SODIUM 40 MG TAB PO SCH ×2 (09:55→20:05)
[2018-02-07] MEDS: DEXAMETHASONE 4 MG TAB PO SCH (09:55)
--- NOTE | 2018-02-07 10:07 | ASMTCMCOM ---
CM Note CM Note Notes: Patient met with oncology today. They've decided to try Romiplostim and first dose will be given today. Patient's positive H Pylori will also be treated. If this goes well, he may discharge later this week. I contacted Kulwinder at the [facility] to inform him of patient's ongoing hospitalization. Kulwinder will check patient's storage locker to make sure his belongings are secure. Patient will need to bring d/c paperwork to [facility] when he returns. Date Signed: 02/07/2018 10:06 AM Electronically Signed By:Christy Pérez RN
--- NOTE | 2018-02-07 10:25 | HOSPPROG ---
Hospitalist Progress Note Assessment/Plan: 47 yo M w ITP Acute ITP Steroids and IVIG per Hematology. Will likely restart today Rituximab given on 02/05 Lymphoma w/u per Onc N plate today treat H pylori Acute Nose bleed Rhino Rocket, continue on amox for TSS prevention Platelets as needed. hx of ETOH use, not in WD Tobacco abuse disorder not on nicotine replacement. He does not want H-Pylori: Abx, ppi Marijuana use Subjective: case d/w dr fernandez. platelets undetectable Objective: Vital Signs Temp Pulse Resp BP Pulse Ox 36.5 C 83 16 127/88 H 95 02/07/18 08:17 02/07/18 08:17 02/07/18 08:17 02/07/18 08:17 02/07/18 08:17 Laboratory Results 02/07/18 04:56 02/07/18 04:56 02/06/18 02/07/18 02/08/18 05:59 05:59 05:59 Intake Total 1250 2400 Balance 1250 2400 PT 13.5 SEC (12.0-15.0) 02/01/18 10:00 INR 1.01 (0.83-1.16) 02/01/18 10:00 - Physical Exam Constitutional: no apparent distress, appears nourished Eyes: PERRL, anicteric sclera Ears, Nose, Mouth, Throat: moist mucous membranes, hearing normal, other (nasal rocket in L nostril) Cardiovascular: regular rate and rhythym, no murmur, rub, or gallop Respiratory: no respiratory distress, no rales or rhonchi Gastrointestinal: normoactive bowel sounds, soft, non-tender abdomen Genitourinary: no bladder fullness, No etienne in urethra Skin: warm, normal color, other (bruising) Musculoskeletal: full muscle strength, no muscle tenderness Neurologic: AAOx3 Psychiatric: interacting appropriately, not anxious ICD10 Worksheet Patient Problems: Problems Problem Status Onset Oral mucosal lesion Acute Thrombocytopenia Acute
[2018-02-07] MEDS ORDERED: ROMIPLOSTIM 250 MCG/0.5 ML SC ONE (12:00)
[2018-02-07] MEDS: ACETAMINOPHEN 325 MG TAB PO PRN (20:04)
[2018-02-07] MEDS: LORazepam 1 MG TAB PO PRN (20:04)
[2018-02-07] MEDS: traZODone 50 MG TAB PO PRN (20:05)
[2018-02-08 05:15] LABS: PLATELET COUNT < 3 10^3/uL (150-400)
[2018-02-08] MEDS: LORazepam 1 MG TAB PO PRN (08:49)
[2018-02-08] MEDS: DRONABINOL 2.5 MG CAP PO SCH ×2 (10:17→20:51)
[2018-02-08] MEDS: PANTOPRAZOLE SODIUM 40 MG TAB PO SCH ×2 (10:18→20:51)
[2018-02-08] MEDS: CLARITHROMYCIN 500 MG TAB PO SCH ×2 (10:18→20:51)
[2018-02-08] MEDS: DEXAMETHASONE 4 MG TAB PO SCH (10:18)
--- NOTE | 2018-02-08 13:49 | SOAPPROG ---
LEE Progress Note Assessment/Plan: Assessment: 1) Severe ITP 2) Monoclonal protein (low level) 3) Anemia 4) Positive H. Pylori serology Plan: Platelet count unchanged. No active bleeding. He received first dose of Romiplostim (N PLATE) yesterday. This is given weekly. Thus far he has not responded to high dose dexamethasone. IVIG or 1 dose Rituxan. He is being given a second course of high dose Dexamethasone. For now, will continue this, and complete the second course tomorrow. He does have a positive H. Pylori serology, and this has been associated with ITP. Case reports indicate that treatment in the H. Pylori results in resolution of the ITP in the majority of cases.He is on H. Pylori treatment. Will plan on giving a second dose of Rituxan next week. I think that his small monoclonal protein is related to ITP. His free light chains are normal. I will repeat his LDH level. I am hopeful that he will respond to treatment of H. Pylori and Romiplostim, and could be d/c home later this week. Patient's questions answered. 02/08/18 13:51 Subjective: Platelets unchanged. No active bleeding. He feels that his petichiae are improving Objective: Vital Signs Temp Pulse Resp BP Pulse Ox 36.6 C 66 14 120/62 97 02/08/18 07:29 02/08/18 07:29 02/08/18 07:29 02/08/18 07:29 02/08/18 07:29 Laboratory Results 02/08/18 05:00 02/07/18 04:56 02/07/18 02/08/18 02/09/18 05:59 05:59 05:59 Intake Total 2400 1150 Balance 2400 1150 PT 13.5 SEC (12.0-15.0) 02/01/18 10:00 INR 1.01 (0.83-1.16) 02/01/18 10:00 - Time Spent With Patient Time Spent With Patient: 25 minutes Physical Exam - Physical Exam General Appearance: alert, no apparent distress EENT: other (Nasal packing in place. No active epistaxis.) Abdomen: non-tender, soft Skin: other (Continued scattered petichiae) Neuro/Psych: alert, normal mood/affect ICD10 Worksheet Patient Problems: Problems Problem Status Onset Oral mucosal lesion Acute Thrombocytopenia Acute
--- NOTE | 2018-02-08 14:52 | HOSPPROG ---
Hospitalist Progress Note Assessment/Plan: 47 yo M w ITP Acute ITP Steroids and IVIG per Hematology--second course of high dose steroids started today Rituximab given on 02/05 Lymphoma w/u per Onc N plate yesterday treat H pylori Acute Nose bleed Rhino Rocket, continue on amox for TSS prevention Platelets as needed. hx of ETOH use, not in WD Tobacco abuse disorder not on nicotine replacement. He does not want H-Pylori: Abx, ppi IP status, high risk with undetectable platelets Subjective: no significant overnight events, patient getting agitated with steroids Objective: Vital Signs Temp Pulse Resp BP Pulse Ox 36.6 C 66 14 120/62 97 02/08/18 07:29 02/08/18 07:29 02/08/18 07:29 02/08/18 07:29 02/08/18 07:29 Laboratory Results 02/08/18 05:00 02/07/18 04:56 02/07/18 02/08/18 02/09/18 05:59 05:59 05:59 Intake Total 2400 1150 Balance 2400 1150 PT 13.5 SEC (12.0-15.0) 02/01/18 10:00 INR 1.01 (0.83-1.16) 02/01/18 10:00 Constitutional: no apparent distress, appears nourished Eyes: PERRL, anicteric sclera Ears, Nose, Mouth, Throat: moist mucous membranes, hearing normal, other (nasal rocket in L nostril) Cardiovascular: regular rate and rhythym, no murmur, rub, or gallop Respiratory: no respiratory distress, no rales or rhonchi Gastrointestinal: normoactive bowel sounds, soft, non-tender abdomen Genitourinary: no bladder fullness, No etienne in urethra Skin: warm, normal color, other (bruising, scattered petechiae) Musculoskeletal: full muscle strength, no muscle tenderness Neurologic: AAOx3 Psychiatric: interacting appropriately, not anxious - Time Spent With Patient Time Spent with Patient: greater than 35 minutes Time Spent with Patient: Greater than 35 minutes spent on this patients care, greater than 50% of time spent counseling, educating, and coordinating care regarding the above mentioned plan. ICD10 Worksheet Patient Problems: Problems Problem Status Onset Oral mucosal lesion Acute Thrombocytopenia Acute
[2018-02-08] MEDS: traZODone 50 MG TAB PO PRN (20:52)
[2018-02-09] MEDS: PANTOPRAZOLE SODIUM 40 MG TAB PO SCH ×2 (08:34→21:05)
[2018-02-09] MEDS: DEXAMETHASONE 4 MG TAB PO SCH (08:35)
[2018-02-09] MEDS: CLARITHROMYCIN 500 MG TAB PO SCH ×2 (08:36→21:06)
[2018-02-09] MEDS: DRONABINOL 2.5 MG CAP PO SCH ×2 (08:36→21:06)
--- NOTE | 2018-02-09 12:06 | SOAPPROG ---
SORUTHIE Progress Note Assessment/Plan: Assessment: 1) Severe ITP 2) Monoclonal protein (low level) 3) Anemia 4) Positive H. Pylori serology Plan: Platelet count remains unchanged. No active bleeding. He received first dose of Romiplostim (N PLATE) on Thursday 02/08. This is given weekly. Thus far he has not responded to high dose dexamethasone. IVIG or 1 dose Rituxan. He is being given a second course of high dose Dexamethasone which he will complete today. I will go ahead and have nursing staff remove his nasal packing. We will have him remain inpatient overnight. Provided that he has no further bleeding, I think he could be discharged tomorrow with office follow up at [facility] on Wednesday. Clinically the picture remains c/w ITP, and I do not feel that a bone marrow biopsy is indicated at this time. He does have a positive H. Pylori serology, and this has been associated with ITP. Case reports indicate that treatment in the H. Pylori results in resolution of the ITP in the majority of cases.He is on H. Pylori treatment. Will plan on giving a second dose of Rituxan next week, as well as second dose of NPLATE I think that his small monoclonal protein is related to ITP. His free light chains are normal. His repeat LDH level is lower. Patient's questions answered. Care plan d/w nursing. 02/08/18 13:51 02/09/18 11:58 Subjective: Feels well. No further bleeding Objective: Vital Signs Temp Pulse Resp BP Pulse Ox 36.4 C 64 12 128/84 H 97 02/09/18 07:39 02/09/18 07:39 02/09/18 07:39 02/09/18 07:39 02/09/18 07:39 Laboratory Results 02/09/18 10:30 02/07/18 04:56 02/08/18 02/09/18 02/10/18 05:59 05:59 05:59 Intake Total 1150 550 Balance 1150 550 PT 13.5 SEC (12.0-15.0) 02/01/18 10:00 INR 1.01 (0.83-1.16) 02/01/18 10:00 - Time Spent With Patient Time Spent With Patient: 25 minutes Physical Exam - Physical Exam General Appearance: alert, no apparent distress, moderate distress EENT: other (No epistaxis.) Skin: other (Continued scattered pettichiae. Improved. No new areas) Neuro/Psych: normal mood/affect ICD10 Worksheet Patient Problems: Problems Problem Status Onset Oral mucosal lesion Acute Thrombocytopenia Acute
--- NOTE | 2018-02-09 14:58 | ASMTCMCOM ---
CM Note CM Note Notes: Spoke with patient about discharge. He will bring paperwork to the long-term. We will give him a bus pass. Per oncology note, needs f/u appt Sunday 02/11 @ [facility]. Case Management will make him an appointment at [facility] when d.c date is known. Date Signed: 02/09/2018 02:57 PM Electronically Signed By:Christy Pérez RN
--- NOTE | 2018-02-09 15:25 | HOSPPROG ---
Hospitalist Progress Note Assessment/Plan: 47 yo M w ITP Acute ITP Steroids and IVIG per Hematology Rituximab given on 02/05 Lymphoma w/u per Onc N plate yesterday treat H pylori Acute Nose bleed Rhino Rocket, continue on amox for TSS prevention Platelets as needed. hx of ETOH use, not in WD Tobacco abuse disorder not on nicotine replacement. He does not want H-Pylori: Abx, ppi IP status, high risk with undetectable platelets Subjective: no significant overnight events, patient is feeling better Objective: Vital Signs Temp Pulse Resp BP Pulse Ox 36.3 C 73 14 128/72 H 96 02/09/18 15:18 02/09/18 15:18 02/09/18 15:18 02/09/18 15:18 02/09/18 15:18 Laboratory Results 02/09/18 10:30 02/07/18 04:56 02/08/18 02/09/18 02/10/18 05:59 05:59 05:59 Intake Total 1150 550 Balance 1150 550 PT 13.5 SEC (12.0-15.0) 02/01/18 10:00 INR 1.01 (0.83-1.16) 02/01/18 10:00 Constitutional: no apparent distress, appears nourished Eyes: PERRL, anicteric sclera Ears, Nose, Mouth, Throat: moist mucous membranes, hearing normal, other (nasal rocket in L nostril) Cardiovascular: regular rate and rhythym, no murmur, rub, or gallop Respiratory: no respiratory distress, no rales or rhonchi Gastrointestinal: normoactive bowel sounds, soft, non-tender abdomen Genitourinary: no bladder fullness, No etienne in urethra Skin: warm, normal color, other (bruising, scattered petechiae) Musculoskeletal: full muscle strength, no muscle tenderness Neurologic: AAOx3 Psychiatric: interacting appropriately, not anxious ICD10 Worksheet Patient Problems: Problems Problem Status Onset Oral mucosal lesion Acute Thrombocytopenia Acute
[2018-02-09] MEDS: traZODone 50 MG TAB PO PRN (21:06)
[2018-02-09 21:50] LABS: PLATELET COUNT < 3 10^3/uL (150-400)
[2018-02-10 05:34] LABS: PLATELET COUNT < 3 10^3/uL (150-400)
[2018-02-10] MEDS: LORazepam 1 MG TAB PO PRN (06:54)
[2018-02-10] MEDS: DRONABINOL 2.5 MG CAP PO SCH ×2 (08:26→20:17)
[2018-02-10] MEDS: PANTOPRAZOLE SODIUM 40 MG TAB PO SCH ×2 (08:26→20:17)
[2018-02-10] MEDS: CLARITHROMYCIN 500 MG TAB PO SCH ×2 (08:26→20:17)
--- NOTE | 2018-02-10 11:33 | SOAPPROG ---
SOAP Progress Note Assessment/Plan: Assessment: 1) Severe ITP 2) Monoclonal protein (low level) 3) Anemia 4) Positive H. Pylori serology Plan: Platelet count remains unchanged. Unortunately his epistaxis resumed after d/c of his nasal packing . It has been replaced. At this point, it might be worth having ENT see the patient to see if nasal cautery could be helpful as this is his only site of bleeding. Given that he has developed recurrent epistaxis, I do not think that he is appropriate for discharge. He received first dose of Romiplostim (N PLATE) on Thursday 02/08. This is given weekly. Thus far he has not responded to high dose dexamethasone. IVIG or 1 dose Rituxan. There is really no other therapy aside from splenectomy. Given that this is H. Pylori related, I would prefer to give him at least 2 weeks to respond to current therapy before considering splenecomy. Splenectomy vaccines have already been given. There are case reports of a more rapid recovery time with increased Romiplostim dosing. I think that it would be reasonable to give him a second dose tomorrow. Clinically the picture remains c/w ITP, and I do not feel that a bone marrow biopsy is indicated at this time. He is on H. Pylori treatment. Will plan on giving a second dose of Rituxan next week. I think that his small monoclonal protein is related to ITP. His free light chains are normal. His repeat LDH level is lower. Patient's questions answered. Care plan d/w nursing. 02/10/18 11:35 Subjective: Unfortunately he has had recurrent epistaxis following the removal of his nasal packing. Objective: Vital Signs Temp Pulse Resp BP Pulse Ox 36.7 C 66 16 120/70 96 02/09/18 23:52 02/09/18 23:52 02/09/18 23:52 02/09/18 23:52 02/09/18 23:52 Laboratory Results 02/10/18 04:39 02/07/18 04:56 02/09/18 02/10/18 02/11/18 05:59 05:59 05:59 Intake Total 550 525 Balance 550 525 PT 13.5 SEC (12.0-15.0) 02/01/18 10:00 INR 1.01 (0.83-1.16) 02/01/18 10:00 - Time Spent With Patient Time Spent With Patient: 25 minutes Physical Exam - Physical Exam General Appearance: alert, no apparent distress EENT: other (Evidence of recent epistaxis with Left nasal balloon in place) Skin: other (Improved petichiae) Neuro/Psych: normal mood/affect, oriented x 3 ICD10 Worksheet Patient Problems: Problems Problem Status Onset Acute ITP Acute ~02/01/18 Oral mucosal lesion Acute Thrombocytopenia Acute
--- NOTE | 2018-02-10 14:46 | HOSPPROG ---
Hospitalist Progress Note Assessment/Plan: 47 yo M w ITP Acute ITP Steroids and IVIG per Hematology Rituximab given on 02/05 Lymphoma w/u per Onc N plate given x 1 and will be given again early tomorrow treating H pylori Acute Nose bleed Rhino Rocket--attempted to remove and immediately began to rebleed. Discussed with Dr. Hugo of ENT, he would like us to keep the rhino rockets in place until Wednesday and call him on Wednesday to help attempt to remove them safely. Could consider surgery as a last resort. on amox for TSS prevention hx of ETOH use, not in WD Tobacco abuse disorder not on nicotine replacement. He does not want H-Pylori: Abx, ppi IP status, high risk with undetectable platelets Subjective: attempted to remove rhino rockets yesterday with recurrent bleeding , they are now back in Objective: Vital Signs Temp Pulse Resp BP Pulse Ox 36.7 C 66 16 120/70 96 02/09/18 23:52 02/09/18 23:52 02/09/18 23:52 02/09/18 23:52 02/09/18 23:52 Laboratory Results 02/10/18 04:39 02/07/18 04:56 02/09/18 02/10/18 02/11/18 05:59 05:59 05:59 Intake Total 550 525 Balance 550 525 PT 13.5 SEC (12.0-15.0) 02/01/18 10:00 INR 1.01 (0.83-1.16) 02/01/18 10:00 Constitutional: no apparent distress, appears nourished Eyes: PERRL, anicteric sclera Ears, Nose, Mouth, Throat: moist mucous membranes, hearing normal, other (nasal rocket in L nostril) Cardiovascular: regular rate and rhythym, no murmur, rub, or gallop Respiratory: no respiratory distress, no rales or rhonchi Gastrointestinal: normoactive bowel sounds, soft, non-tender abdomen Genitourinary: no bladder fullness, No etienne in urethra Skin: warm, normal color, other (bruising, scattered petechiae) Musculoskeletal: full muscle strength, no muscle tenderness Neurologic: AAOx3 Psychiatric: interacting appropriately, not anxious ICD10 Worksheet Patient Problems: Problems Problem Status Onset Acute ITP Acute ~02/01/18 Oral mucosal lesion Acute Thrombocytopenia Acute
[2018-02-10] MEDS: traZODone 50 MG TAB PO PRN (20:17)
[2018-02-10] MEDS: SODIUM CL NASAL 45 ML BTL EACHNARE PRN (20:17)
[2018-02-11] MEDS: LORazepam 1 MG TAB PO PRN ×3 (05:03→20:13)
[2018-02-11] MEDS: ACETAMINOPHEN 325 MG TAB PO PRN (10:02)
[2018-02-11] MEDS: PANTOPRAZOLE SODIUM 40 MG TAB PO SCH ×2 (10:03→20:13)
[2018-02-11] MEDS: CLARITHROMYCIN 500 MG TAB PO SCH ×2 (10:03→20:12)
[2018-02-11] MEDS: DRONABINOL 2.5 MG CAP PO SCH ×2 (10:03→20:13)
[2018-02-11] MEDS: SODIUM CL NASAL 45 ML BTL EACHNARE PRN (10:04)
[2018-02-11] MEDS: OXYMETAZOLINE 30 ML NASAL SPRAY EACHNARE PRN (10:07)
[2018-02-11 10:18] LABS: PLATELET COUNT < 3 10^3/uL (150-400)
--- NOTE | 2018-02-11 12:08 | SOAPPROG ---
SORUTHIE Progress Note Assessment/Plan: Assessment: 1) Severe ITP 2) Monoclonal protein (low level) 3) Anemia 4) Positive H. Pylori serology Plan: Platelet count remains unchanged. Unfortunately his epistaxis resumed after d/c of his nasal packing . It has now been replaced. ENT was contacted, but did not feel any other specific interventions were warranted. They will remove the nasal balloon on Wednesday. Given that he has developed recurrent epistaxis, I do not think that he is appropriate for discharge. He received first dose of Romiplostim (N PLATE) on Thursday 02/08. I will administer a second dose today at 2 mcg/kg. Thus far he has not responded to high dose dexamethasone. IVIG or 1 dose Rituxan. There is really no other therapy aside from splenectomy. Given that this is H. Pylori related, I would prefer to give him at least 2 weeks to respond to current therapy before considering splenecomy. Splenectomy vaccines have already been given. Clinically the picture remains c/w ITP, and I do not feel that a bone marrow biopsy is indicated at this time. He is on H. Pylori treatment. Will plan on giving a second dose of Rituxan next week. (Wednesday) I think that his small monoclonal protein is related to ITP. His free light chains are normal. His repeat LDH level is lower. Patient's questions answered. Care plan d/w nursing. 02/10/18 11:35 02/11/18 12:05 02/11/18 12:09 02/11/18 12:19 Subjective: Epistaxis has resolved with nasal balloon. Objective: Vital Signs Temp Pulse Resp BP Pulse Ox 36.6 C 71 16 128/65 H 98 02/11/18 05:04 02/11/18 05:04 02/11/18 05:04 02/11/18 05:04 02/11/18 08:00 Laboratory Results 02/11/18 09:45 02/11/18 09:45 02/10/18 02/11/18 02/12/18 05:59 05:59 05:59 Intake Total 525 2000 Balance 525 2000 PT 13.5 SEC (12.0-15.0) 02/01/18 10:00 INR 1.01 (0.83-1.16) 02/01/18 10:00 - Time Spent With Patient Time Spent With Patient: 25 minutes Physical Exam - Physical Exam General Appearance: alert, no apparent distress, other (Left nasal passage with balloon. No active epistaxis.) Respiratory: accessory muscle use Skin: normal color, other (Minimal petichiae) Neuro/Psych: alert, normal mood/affect ICD10 Worksheet Patient Problems: Problems Problem Status Onset Acute ITP Acute ~02/01/18 Oral mucosal lesion Acute Thrombocytopenia Acute
--- NOTE | 2018-02-11 12:42 | HOSPPROG ---
Hospitalist Progress Note Assessment/Plan: 47 yo M w ITP Acute ITP Steroids and IVIG per Hematology Rituximab given on 02/05 Lymphoma w/u per Onc N plate given x 2 treating H pylori Acute Nose bleed Rhino Rocket--attempted to remove and immediately began to rebleed. Discussed with Dr. Hugo of ENT, he would like us to keep the rhino rockets in place until Wednesday and call him on Wednesday to help attempt to remove them safely. Could consider surgery as a last resort. on amox for TSS prevention hx of ETOH use, not in [place] Tobacco abuse disorder not on nicotine replacement. He does not want H-Pylori: Abx, ppi IP status, high risk with undetectable platelets Subjective: no significant overnight events, patient is frustrated that he is stillin the hospital, he is more frustrated that he is not turning around Objective: Vital Signs Temp Pulse Resp BP Pulse Ox 36.6 C 71 16 128/65 H 98 02/11/18 05:04 02/11/18 05:04 02/11/18 05:04 02/11/18 05:04 02/11/18 08:00 Laboratory Results 02/11/18 09:45 02/11/18 09:45 02/10/18 02/11/18 02/12/18 05:59 05:59 05:59 Intake Total 525 2000 Balance 525 2000 PT 13.5 SEC (12.0-15.0) 02/01/18 10:00 INR 1.01 (0.83-1.16) 02/01/18 10:00 Constitutional: no apparent distress, appears nourished Eyes: PERRL, anicteric sclera Ears, Nose, Mouth, Throat: moist mucous membranes, hearing normal, other (nasal rocket in L nostril) Cardiovascular: regular rate and rhythym, no murmur, rub, or gallop Respiratory: no respiratory distress, no rales or rhonchi Gastrointestinal: normoactive bowel sounds, soft, non-tender abdomen Genitourinary: no bladder fullness, No etienne in urethra Skin: warm, normal color, other (bruising, scattered petechiae) Musculoskeletal: full muscle strength, no muscle tenderness Neurologic: AAOx3 Psychiatric: interacting appropriately, not anxious ICD10 Worksheet Patient Problems: Problems Problem Status Onset Acute ITP Acute ~02/01/18 Oral mucosal lesion Acute Thrombocytopenia Acute
[2018-02-11] MEDS ORDERED: NON-FORMULARY NEW DRUG SC ONE (14:23)
[2018-02-11] MEDS ORDERED: ROMIPLOSTIM 250 MCG/0.5 ML SC ONE (14:30)
--- NOTE | 2018-02-11 15:50 | ASMTCMCOM ---
CM Note CM Note Notes: Pt will remain at [facility] into next week. Pt will need DC paperwork to bring to the half-way. he will also need an appt at [facility]. CM to follow for any additional DC needs. Date Signed: 02/11/2018 03:50 PM Electronically Signed By:Rizwana Chung LCSW
[2018-02-12] MEDS: ACETAMINOPHEN 325 MG TAB PO PRN ×2 (01:05→09:51)
[2018-02-12 06:38] LABS: PLATELET COUNT < 3 10^3/uL (150-400)
[2018-02-12] MEDS: CLARITHROMYCIN 500 MG TAB PO SCH ×2 (09:46→20:59)
[2018-02-12] MEDS: DRONABINOL 2.5 MG CAP PO SCH ×2 (09:47→20:59)
[2018-02-12] MEDS: PANTOPRAZOLE SODIUM 40 MG TAB PO SCH ×2 (09:47→20:59)
--- NOTE | 2018-02-12 09:51 | SOAPPROG ---
LEE Progress Note Assessment/Plan: E&M for thrombocytopenia * Acute, refractory ITP: IVIg 1 gm/kg x2; High dose dex x 2; Rituximab 02/07; Nplate 02/08 and 02/11 (2 mcg/kg). Platelets still very low. Petechiae and purpura much better but still bleeding. Plan is to continue rituximab weekly for 4 doses, next dose this weekend, and weekly nplate. Will also give full course of h.pylori abx. Have not done marrow as initial labs and smear unremarkable. If can get bleeding to stop, will send home to continue therapy outpatient. * Epistaxis: controlled with nasal packing but recurs when removed. ENT called and recommend keeping packing over weekend and they will remove on Wednesday. If still bleeding, will look at procedure to stop. If that is unsuccessful, might be best to send out with the packing, continue ITP therapy outpatient, and follow up with ENT to remove packing when platelets start to respond. 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 Light chains ok so will monitor. * Positive H. Pylori serology: Finished one of 2 week course of antibiotics Subjective: Bleeding controlled with packing. Frustrated about having to stay here. Objective: Vital Signs Temp Pulse Resp BP Pulse Ox 36.8 C 78 15 118/60 96 02/12/18 05:58 02/12/18 05:58 02/12/18 05:58 02/12/18 05:58 02/12/18 05:58 Laboratory Results 02/12/18 05:55 02/11/18 09:45 02/11/18 02/12/18 02/13/18 05:59 05:59 05:59 Intake Total 1999 1100 Balance 1999 1100 PT 13.5 SEC (12.0-15.0) 02/01/18 10:00 INR 1.01 (0.83-1.16) 02/01/18 10:00 Laboratory Tests 02/04/18 02/04/18 02/04/18 04:44 04:44 04:44 WBC Hgb Plt Count Rheum Factor Semi-Quant < 8.6 Titer 1:80 Free [place] LC, Quant Free Lambda LC, Quant H. pylori IgG Antibody POSITIVE 02/04/18 02/10/18 02/11/18 04:44 04:39 09:45 WBC 11.99 H 12.87 H Hgb 10.3 L 9.9 L Plt Count < 3 L* < 3 L* Rheum Factor Semi-Quant Titer Free [place] LC, Quant 0.7930 Free Lambda LC, Quant 1.51 H. pylori IgG Antibody 02/12/18 05:55 WBC 12.01 H Hgb 9.2 L Plt Count < 3 L* Rheum Factor Semi-Quant Titer Free [place] LC, Quant Free Lambda LC, Quant H. pylori IgG Antibody Physical Exam - Physical Exam General Appearance: no apparent distress EENT: other (Oral with minimal petechiae; no active bleeding around right nasal packing) Respiratory: lungs clear Cardiac/Chest: regular rate, rhythm Skin: other (petechiae and bruising much better) ICD10 Worksheet Patient Problems: Problems Problem Status Onset Acute ITP Acute ~02/01/18 Oral mucosal lesion Acute Thrombocytopenia Acute
--- NOTE | 2018-02-12 15:14 | HOSPPROG ---
Hospitalist Progress Note Assessment/Plan: # acute refractory ITP - s/p IVIG, high dose dex, nplate, rituxan - still no improvement in plts - treating h. pylori with amox, clarithromycin and protonix - splenectomy labs given # epistaxis - stable with rhino rocket - ENT to remove Wednesday (will call Dr yarbrough) - if rebleeds may need procedure - cont afrin - cont amox for ppx # etOH use - no w/d # tobacco use # Subjective: feels slightly less fatigued today; bruising improving Objective: Vital Signs Temp Pulse Resp BP Pulse Ox 36.8 C 90 17 120/56 L 96 02/12/18 11:20 02/12/18 11:20 02/12/18 11:20 02/12/18 11:20 02/12/18 11:20 Laboratory Results 02/12/18 05:55 02/11/18 09:45 02/11/18 02/12/18 02/13/18 05:59 05:59 05:59 Intake Total 1999 1100 Balance 1999 1100 PT 13.5 SEC (12.0-15.0) 02/01/18 10:00 INR 1.01 (0.83-1.16) 02/01/18 10:00 chart reviewed US/face CT reviewed - Physical Exam Constitutional: no apparent distress, appears nourished Ears, Nose, Mouth, Throat: other (rhino rocket) Cardiovascular: regular rate and rhythym, no murmur, rub, or gallop Respiratory: no respiratory distress, no rales or rhonchi, clear to auscultation Gastrointestinal: soft, non-tender abdomen, no palpable masses, No distension Skin: other (a few ecchymoses) ICD10 Worksheet Patient Problems: Problems Problem Status Onset Acute ITP Acute ~02/01/18 Oral mucosal lesion Acute Thrombocytopenia Acute
[2018-02-12] MEDS: LORazepam 1 MG TAB PO PRN ×2 (16:32→20:59)
--- NOTE | 2018-02-12 17:05 | ASMTCMCOM ---
CM Note CM Note Notes: Per chart notes, pt admitted with acute encephalopathy, anemia, malnutrition and suspected malignancy of unknown origin. This ps pt's third hospitalization. Pt has refused workup for suspected ca. Met with pt who is tangential in her speech and hard to redirect. Pt has been in process of moving out of her apartment since end of January. She still has not moved out nor does she have a place to stay when she does. She indicated her brother Rayshawn in [place] may be able to take her in but that it would take a while to arrange that. She has no interest in a SNF. Per Dr Weiss, though pt has refused colonoscopy, he will consider other options for getting a more definitive dx. Pt's DC needs unclear. Date Signed: 02/12/2018 05:04 PM Electronically Signed By:Rizwana Chung LCSW
[2018-02-13 06:57] LABS: PLATELET COUNT < 3 10^3/uL (150-400)
[2018-02-13] MEDS: CLARITHROMYCIN 500 MG TAB PO SCH ×2 (08:09→20:15)
[2018-02-13] MEDS: PANTOPRAZOLE SODIUM 40 MG TAB PO SCH ×2 (08:09→20:15)
[2018-02-13] MEDS: DRONABINOL 2.5 MG CAP PO SCH ×2 (08:09→20:16)
--- NOTE | 2018-02-13 10:45 | HOSPPROG ---
Hospitalist Progress Note Assessment/Plan: # acute refractory ITP - s/p IVIG, high dose dex, nplate, rituxan - still no improvement in plts - treating h. pylori with amox, clarithromycin and protonix - splenectomy vaccines given # epistaxis - stable with rhino rocket - ENT to remove Wednesday (will call Dr yarbrough) - if rebleeds may need procedure - cont afrin prn - cont amox for ppx # etOH use - no w/d # tobacco use # social - very frustrated with being here; homeless; seen by security last night due to agitation; has decisional capacity Subjective: very frustrated with being here; got up and went into the bathroom without saying anything before our interview was completed Objective: Vital Signs Temp Pulse Resp BP Pulse Ox 36.6 C 87 16 121/68 H 98 02/13/18 08:00 02/13/18 08:00 02/13/18 08:00 02/13/18 08:00 02/13/18 08:00 Laboratory Results 02/13/18 06:15 02/11/18 09:45 02/12/18 02/13/18 02/14/18 05:59 05:59 05:59 Intake Total 1100 100 Balance 1100 100 PT 13.5 SEC (12.0-15.0) 02/01/18 10:00 INR 1.01 (0.83-1.16) 02/01/18 10:[address] Scott - Physical Exam Constitutional: other (frustrated appearing) Eyes: anicteric sclera Ears, Nose, Mouth, Throat: other (L nasal packing) Cardiovascular: No edema Respiratory: no respiratory distress Gastrointestinal: No distension Genitourinary: No etienne in urethra Skin: other (multiple ecchymoses) Musculoskeletal: full muscle strength Neurologic: AAOx3 Psychiatric: anxious ICD10 Worksheet Patient Problems: Problems Problem Status Onset Acute ITP Acute ~02/01/18 Oral mucosal lesion Acute Thrombocytopenia Acute
--- NOTE | 2018-02-13 11:24 | SOAPPROG ---
LEE Progress Note Assessment/Plan: E&M for thrombocytopenia * Acute, refractory ITP: IVIg 1 gm/kg x2; High dose dex x 2; Rituximab 02/07; Nplate 02/08 and 02/11 (2 mcg/kg). Platelets still very low. Petechiae and purpura much better but still bleeding. Plan is to continue rituximab weekly for 4 doses, next dose this weekend, and weekly nplate. Will also give full course of h.pylori abx. Have not done marrow as initial labs and smear unremarkable. If can get bleeding to stop, will send home to continue therapy outpatient. He inquired about splenectomy. I spoke with Dr. Hanley who will stop by and discuss the procedure with him. * Epistaxis: controlled with nasal packing but recurs when removed. ENT called and recommend keeping packing over weekend and they will remove on Wednesday. If still bleeding, will look in procedure to stop. If that is unsuccessful, might be best to send out with the packing and abx, continue ITP therapy outpatient, and follow up with ENT to remove packing when platelets start to respond. 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 Light chains ok so will monitor. * Positive H. Pylori serology: Finished one of 2 week course of antibiotics Subjective: He is becoming increasingly frustrated about not getting better and not being able to leave. He verbally last out at some of the nurses and security spoke to him. He denies any further bleeding or clots. He still notes a couple new purpura in the bottom of his lip but they are not painful. Objective: Vital Signs Temp Pulse Resp BP Pulse Ox 36.6 C 87 16 121/68 H 98 02/13/18 08:00 02/13/18 08:00 02/13/18 08:00 02/13/18 08:00 02/13/18 08:00 Laboratory Results 02/13/18 06:15 02/11/18 09:45 02/12/18 02/13/18 02/14/18 05:59 05:59 05:59 Intake Total 1100 100 Balance 1100 100 PT 13.5 SEC (12.0-15.0) 02/01/18 10:00 INR 1.01 (0.83-1.16) 02/01/18 10:00 Physical Exam - Physical Exam General Appearance: no apparent distress EENT: other (Packing left nostril without bleeding. Small purpura bottom lip) Skin: other (no petechiae) ICD10 Worksheet Patient Problems: Problems Problem Status Onset Acute ITP Acute ~02/01/18 Oral mucosal lesion Acute Thrombocytopenia Acute
--- NOTE | 2018-02-13 13:22 | SOAPPROG ---
SOAP Progress Note Assessment/Plan: Assessment: 47 male with unresponsive ITP, epistaxis and platelet ct of <3000 exam: abd nontender with no scars chest clear heent nonicteric cor rr risks and options fully discussed Plan:will arrange lap splenectomy in the am 02/13/18 13:19 Objective: Vital Signs Temp Pulse Resp BP Pulse Ox 36.6 C 87 16 121/68 H 98 02/13/18 08:00 02/13/18 08:00 02/13/18 08:00 02/13/18 08:00 02/13/18 08:00 Laboratory Results 02/13/18 06:15 02/11/18 09:45 02/12/18 02/13/18 02/14/18 05:59 05:59 05:59 Intake Total 1100 100 Balance 1100 100 PT 13.5 SEC (12.0-15.0) 02/01/18 10:00 INR 1.01 (0.83-1.16) 02/01/18 10:00 ICD10 Worksheet Patient Problems: Problems Problem Status Onset Acute ITP Acute ~02/01/18 Oral mucosal lesion Acute Thrombocytopenia Acute
[2018-02-13] MEDS ORDERED: ceFAZolin 2 GM/DEXTROSE 100 ML IV ONE (13:23)
[2018-02-13] MEDS ORDERED: DEXAMETHASONE 10 MG/ML VIAL IVP PRN (13:47)
[2018-02-13] MEDS ORDERED: EPINEPHrine 1 MG/ML INJ IM PRN (13:47)
[2018-02-13] MEDS ORDERED: HYDROCORTISONE 100 MG/2 ML VIAL IVP PRN (13:47)
[2018-02-13] MEDS ORDERED: ACETAMINOPHEN 325 MG TAB PO PRN (13:47)
[2018-02-13] MEDS ORDERED: NS 500 ML IV PRN (13:47)
[2018-02-13] MEDS ORDERED: MEPERIDINE 25 MG/ML SYR IVP PRN (13:47)
[2018-02-13] MEDS ORDERED: ACETAMINOPHEN 325 MG TAB PO ONE (15:00)
[2018-02-13] MEDS ORDERED: diphenhydrAMINE 25 MG CAP PO ONE (15:00)
[2018-02-13] MEDS ORDERED: NS 1,000 ML IV PRN (15:00)
[2018-02-13] MEDS ORDERED: NS IV ONE (15:30)
[2018-02-13] MEDS ORDERED: RITUXIMAB IV ONE (15:30)
[2018-02-13] MEDS: LORazepam 1 MG TAB PO PRN (20:16)
[2018-02-14] MEDS ORDERED: DIAZEPAM 5 MG/ML 1 ML SYR IVP ONE (03:54)
[2018-02-14 05:27] LABS: PLATELET COUNT < 3 10^3/uL (150-400)
[2018-02-14] MEDS ORDERED: ceFAZolin 2 GM/DEXTROSE 100 ML IV ONE ×2 (08:22→11:45)
--- NOTE | 2018-02-14 08:51 | HOSPPROG ---
Hospitalist Progress Note Assessment/Plan: # acute refractory ITP - s/p IVIG, high dose dex, nplate, rituxan - still no improvement in plts - treating h. pylori with amox, clarithromycin and protonix - plan splenectomy today - vaccines given; will need platelet transfusion prior to surgery # epistaxis - stable with rhino rocket - discussed with Dr Hugo - he will follow him peripherally this week and recommends continuing nasal packing for now; ideally will remove prior to dc - cont afrin prn - cont amox for ppx # etOH use - no w/d # tobacco use # social - very frustrated with being here; homeless; continues to be agitated; has decisional capacity Subjective: still very frustrated with his lack of response; complains of new hematoma in his R mouth Objective: Vital Signs Temp Pulse Resp BP Pulse Ox 36.7 C 88 18 140/80 H 96 02/13/18 20:00 02/13/18 20:00 02/13/18 20:00 02/13/18 20:00 02/13/18 20:00 Laboratory Results 02/14/18 05:00 02/14/18 05:00 02/13/18 02/14/18 02/15/18 05:59 05:59 05:59 Intake Total 100 1500 Balance 100 1500 PT 13.5 SEC (12.0-15.0) 02/01/18 10:00 INR 1.01 (0.83-1.16) 02/01/18 10:00 high risk with nondetectable platelets needing surgery - Physical Exam Constitutional: uncomfortable Eyes: anicteric sclera Ears, Nose, Mouth, Throat: other (R mouth hematom) Cardiovascular: No edema Respiratory: no respiratory distress Gastrointestinal: No distension Genitourinary: No etienne in urethra Skin: warm Musculoskeletal: full muscle strength Neurologic: AAOx3 Psychiatric: agitated ICD10 Worksheet Patient Problems: Problems Problem Status Onset Acute ITP Acute ~02/01/18 Oral mucosal lesion Acute Thrombocytopenia Acute
[2018-02-14] MEDS: PANTOPRAZOLE SODIUM 40 MG TAB PO SCH ×2 (09:56→20:20)
[2018-02-14] MEDS: DRONABINOL 2.5 MG CAP PO SCH ×2 (09:56→20:20)
[2018-02-14] MEDS: CLARITHROMYCIN 500 MG TAB PO SCH ×2 (09:56→20:20)
--- NOTE | 2018-02-14 10:19 | SOAPPROG ---
LEE Progress Note Assessment/Plan: Assessment/Plan: 47 Y homeless M c ITP recalcitrant to medical management. Splenectomy today. Consent in chart. Vaccines given. Risks and options discussed. He says he has no questions. Platelets ordred and on hold--confirmed this with blood bank this am. S: no pain. c/o new "blood blister"/superficial hematoma on his inner lip. O: gen: alert, nad +superficial/submucosal hematoma inner lip ctab rrr abd soft 02/14/18 10:12 Objective: Vital Signs Temp Pulse Resp BP Pulse Ox 36.7 C 88 18 140/80 H 96 02/13/18 20:00 02/13/18 20:00 02/13/18 20:00 02/13/18 20:00 02/13/18 20:00 Laboratory Results 02/14/18 05:00 02/14/18 05:00 02/13/18 02/14/18 02/15/18 05:59 05:59 05:59 Intake Total 100 1500 Balance 100 1500 PT 13.5 SEC (12.0-15.0) 02/01/18 10:00 INR 1.01 (0.83-1.16) 02/01/18 10:00 ICD10 Worksheet Patient Problems: Problems Problem Status Onset Acute ITP Acute ~02/01/18 Oral mucosal lesion Acute Thrombocytopenia Acute
[2018-02-14] MEDS ORDERED: LR 1,000 ML IV ONE (12:29)
[2018-02-14] MEDS ORDERED: BUPIVACAINE 0.5% 30 ML SDV ONE (13:01)
[2018-02-14] MEDS ORDERED: MIDAZOLAM 2 MG/2 ML VIAL IVP ONE (13:02)
--- NOTE | 2018-02-14 13:02 | PDANEPAE ---
ANE History of Present Illness lap splenectomy ANE Past Medical History - Cardiovascular History Hx Hypertension: No Hx Arrhythmias: No Hx Chest Pain: No Hx Coronary Artery / Peripheral Vascular Disease: No Hx CHF / Valvular Disease: No Hx Palpitations: No - Pulmonary History Hx COPD: No Hx Asthma/Reactive Airway Disease: No Hx Recent Upper Respiratory Infection: No Hx Oxygen in Use at Home: No Hx Sleep Apnea: No Sleep Apnea Screening Result - Last Documented: Negative - Neurologic History Hx Cerebrovascular Accident: No Hx Seizures: No Hx Dementia: No - Endocrine History Hx Diabetes: No Hypothyroid: No Hyperthyroid: No Obesity: no - Renal History Hx Renal Disorders: No - Liver History Hx Hepatic Disorders: No - Neurological & Psychiatric Hx Hx Neurological and Psychiatric Disorders: No - Cancer History Hx Cancer: No - Congenital Disorder History Hx Congenital Disorders: No - GI History GERD: no Hx Gastrointestinal Disorders: No - Other Health History Other Health History: HERNIAS - Chronic Pain History Chronic Pain: No - Surgical History Prior Surgeries: WISDOM TEETH, METACARPAL SURGERY ANE Review of Systems Review of Systems: ANE Patient History - Allergies Allergies/Adverse Reactions: No Known Allergies Allergy (Verified 02/01/18 09:22) - Home Medications Home Medications: Ibuprofen [Motrin (*)] 200 mg PO DAILY PRN 02/01/18 [Last Taken Unknown] - NPO status NPO Since - Liquids (Date): 02/14/18 NPO Since - Liquids (Time): 10:00 NPO Since - Solids (Date): 02/13/18 NPO Since - Solids (Time): 20:00 - Anes Hx Anes Hx: no prior problems - Smoking Hx Smoking Status: Current some day smoker - Alcohol Use Alcohol Use: Heavy ANE Labs/Vital Signs - Labs Result Diagrams: 02/14/18 05:00 02/14/18 05:00 - Vital Signs Blood Pressure: 123/78 Heart Rate: 73 Respiratory Rate: 16 O2 Sat (%): 97 Height: 172.72 cm Weight: 57.1 kg ANE Physical Exam - Airway Mallampati Score: Class 2 Mouth exam: normal dental/mouth exam, clark - Pulmonary Pulmonary: no respiratory distress - Cardiovascular Cardiovascular: regular rate and rhythym - ASA Status ASA Status: II ANE Anesthesia Plan Anesthesia Plan: general endotracheal anesthesia
[2018-02-14] MEDS ORDERED: LIDOCAINE 2% 2 ML INJ ONE ×3 (13:25→13:26)
[2018-02-14] MEDS ORDERED: PROPOFOL 200 MG/20 ML VIAL ONE (13:26)
[2018-02-14] MEDS ORDERED: fentaNYL 100 MCG/2 ML INJ ONE ×2 (13:26→15:06)
[2018-02-14] MEDS ORDERED: ROCURONIUM 50 MG/5 ML VIAL ONE ×2 (13:26→14:01)
[2018-02-14] MEDS ORDERED: DEXAMETHASONE 4 MG/ML VIAL ONE (13:26)
[2018-02-14] MEDS ORDERED: HEPARIN 1000 UNIT/1 ML MDV ONE (13:55)
[2018-02-14] MEDS ORDERED: ONDANSETRON 4 MG/2 ML VIAL ONE (14:47)
[2018-02-14] MEDS ORDERED: SUGAMMADEX SODIUM 200 MG/2 ML VIAL IVP ONE (14:47)
[2018-02-14] MEDS ORDERED: ONDANSETRON 4 MG/2 ML VIAL IVP PRN ×2 (15:02→15:14)
--- NOTE | 2018-02-14 15:05 | POSTOPPROG ---
Post Op Note Date of Operation: 02/14/18 Surgeon: Ho Hanley Trauma Manager: Sandy Ro Anesthesiologist: Pieter Lima Anesthesia: GET(General Endotracheal) Pre-op Diagnosis: ITP Post-op Diagnosis: same Procedure: laparoscopic splenectomy Findings: hemostasis achieved. Platelets given after ligation of splenic vessels Inf/Abcess present in the surg proc area at time of surgery?: No EBL: 30cc Complications: none Specimen(s): spleen to pathology
[2018-02-14] MEDS ORDERED: NALOXONE HCL 0.4 MG/ML INJ IVP PRN (15:14)
[2018-02-14] MEDS ORDERED: LR 500 ML IV PRN (15:14)
[2018-02-14] MEDS ORDERED: ALBUTEROL 3 ML DEYVIAL IH PRN (15:14)
--- NOTE | 2018-02-14 15:14 | POSTANESTH ---
Post Anesthetic Evaluation Cardiovascular Status: Normal, Stable Respiratory Status: Normal, Stable Level of Consciousness/Mental Status: Can Participate in Eval Pain Control: Adequate, Prn Tx Ordered Nausea/Vomiting Control: Adequate, Prn Tx Ordered Complications Possibly Related to Anesthesia: None Noted
[2018-02-14] MEDS ORDERED: HYDROmorphONE/DILAUDID 1 MG/ML INJ ONE ×2 (15:19→15:32)
[2018-02-14] MEDS: HYDROmorphONE/DILAUDID 1 MG/ML INJ IVP PRN ×7 (15:21→20:45)
--- NOTE | 2018-02-14 15:27 | ASMTCMCOM ---
DIMA Note CM Note Notes: Patient is in surgery today getting a splenectomy. He will need IV infusions. Patient is recalcitant to medical management and is homeless. D/C needs may be difficult to arrange for. CM will follow. Date Signed: 02/14/2018 03:26 PM Electronically Signed By:Naty Quintero LCSW
[2018-02-14] MEDS: OXYCODONE/APAP 5/325 TAB PO PRN (20:19)
--- NOTE | 2018-02-14 21:31 | SOAPPROG ---
SOAP Progress Note Assessment/Plan: Assessment: 47 male with unresponsive ITP, epistaxis and platelet ct of <3000 exam: abd nontender with no scars chest clear heent nonicteric cor rr risks and options fully discussed Plan:will arrange lap splenectomy in the am 02/13/18 13:19 02/14/18 21:31 POSTOP SPLENECTOMY/DOING VERY WELL/VITAL SIGNS STABLE/MINIMAL PAIN/NO EVIDENCE OF BLEEDING Objective: Vital Signs Temp Pulse Resp BP Pulse Ox 36.3 C 96 18 130/72 H 95 02/14/18 20:00 02/14/18 20:00 02/14/18 20:00 02/14/18 20:00 02/14/18 20:00 Laboratory Results 02/14/18 05:00 02/14/18 05:00 02/13/18 02/14/18 02/15/18 05:59 05:59 05:59 Intake Total 100 1500 1100 Output Total 30 Balance 100 1500 1070 PT 13.5 SEC (12.0-15.0) 02/01/18 10:00 INR 1.01 (0.83-1.16) 02/01/18 10:00 ICD10 Worksheet Patient Problems: Problems Problem Status Onset Acute ITP Acute ~02/01/18 Oral mucosal lesion Acute Thrombocytopenia Acute
[2018-02-15] MEDS: OXYCODONE/APAP 5/325 TAB PO PRN ×4 (00:51→16:04)
[2018-02-15 05:21] LABS: PLATELET COUNT 3 10^3/uL (150-400)
[2018-02-15] MEDS: DRONABINOL 2.5 MG CAP PO SCH (08:59)
[2018-02-15] MEDS: CLARITHROMYCIN 500 MG TAB PO SCH (08:59)
[2018-02-15] MEDS: PANTOPRAZOLE SODIUM 40 MG TAB PO SCH (09:00)
--- NOTE | 2018-02-15 10:35 | HOSPPROG ---
Hospitalist Progress Note Assessment/Plan: # acute refractory ITP - s/p IVIG, high dose dex, nplate, rituxan; now POD#1 s/p splenectomy - treating h. pylori with amox, clarithromycin and protonix # epistaxis - stable with rhino rocket - discussed with Dr Hugo - he will follow him peripherally this week and recommends continuing nasal packing for now; ideally will remove prior to dc - cont afrin prn - cont amox for ppx # etOH use - no w/d # tobacco use # social - intermittently frustrated - better today Subjective: feels better today; less bleeding from rhino rocket; mouth feels better; +flatus, no BM Objective: Vital Signs Temp Pulse Resp BP Pulse Ox 36.6 C 94 16 132/84 H 97 02/15/18 09:03 02/15/18 09:03 02/15/18 04:05 02/15/18 09:03 02/15/18 09:03 Laboratory Results 02/15/18 04:57 02/15/18 04:57 02/14/18 02/15/18 02/16/18 05:59 05:59 05:59 Intake Total 1500 1750 Output Total 780 Balance 1500 970 PT 13.5 SEC (12.0-15.0) 02/01/18 10:00 INR 1.01 (0.83-1.16) 02/01/18 10:00 high risk s/p splenectomy - Physical Exam Constitutional: no apparent distress, appears nourished Cardiovascular: regular rate and rhythym, no murmur, rub, or gallop Respiratory: no respiratory distress, no rales or rhonchi, clear to auscultation Gastrointestinal: soft, non-tender abdomen, other (R sided gauze with some oozing; ), No guarding, No rebound, No distension ICD10 Worksheet Patient Problems: Problems Problem Status Onset Acute ITP Acute ~02/01/18 Oral mucosal lesion Acute Thrombocytopenia Acute
--- NOTE | 2018-02-15 11:02 | SOAPPROG ---
SOAP Progress Note Assessment/Plan: Assessment/Plan: 47 Y homeless M c ITP recalcitrant to medical management. s/p splenectomy, POD#1. Continue routine post op care. Advance to regular diet. Labs. Has had preop vaccines. S: minimal pain. thinks mouth blood blisters/hematomas already better. O: gen: alert, nad ctab rrr abd soft, +BS, wounds clean, serosanguinous drainage on dressings 02/15/18 10:59 Objective: Vital Signs Temp Pulse Resp BP Pulse Ox 36.6 C 94 16 132/84 H 97 02/15/18 09:03 02/15/18 09:03 02/15/18 04:05 02/15/18 09:03 02/15/18 09:03 Laboratory Results 02/15/18 04:57 02/15/18 04:57 02/14/18 02/15/18 02/16/18 05:59 05:59 05:59 Intake Total 1500 1750 Output Total 780 Balance 1500 970 PT 13.5 SEC (12.0-15.0) 02/01/18 10:00 INR 1.01 (0.83-1.16) 02/01/18 10:00 ICD10 Worksheet Patient Problems: Problems Problem Status Onset Acute ITP Acute ~02/01/18 Oral mucosal lesion Acute Thrombocytopenia Acute
--- NOTE | 2018-02-15 12:26 | SOAPPROG ---
SOAP Progress Note Assessment/Plan: Assessment: 1. Refractory ITP 2. s/p splenectomy Plan: - follow platelet count - if not improving, will give additional Nplate. Goal is to get it >50K 02/15/18 12:25 Subjective: sore from splenectomy. no new lesions. Objective: exam: rhino rocket in L nostril petechie, purpura splenectomy incision c/d/i Vital Signs Temp Pulse Resp BP Pulse Ox 36.6 C 94 16 132/84 H 97 02/15/18 09:03 02/15/18 09:03 02/15/18 04:05 02/15/18 09:03 02/15/18 09:03 Laboratory Results 02/15/18 04:57 02/15/18 04:57 02/14/18 02/15/18 02/16/18 05:59 05:59 05:59 Intake Total 1500 1750 Output Total 780 Balance 1500 970 PT 13.5 SEC (12.0-15.0) 02/01/18 10:00 INR 1.01 (0.83-1.16) 02/01/18 10:00 ICD10 Worksheet Patient Problems: Problems Problem Status Onset Acute ITP Acute ~02/01/18 Oral mucosal lesion Acute Thrombocytopenia Acute
[2018-02-15] MEDS: ACETAMINOPHEN 325 MG TAB PO PRN (18:36)
[2018-02-15 22:06] LABS: PLATELET COUNT 3 10^3/uL (150-400)
[2018-02-15 23:07] LABS: PLATELET COUNT 3 10^3/uL (150-400)
[2018-02-16] MEDS: OXYCODONE/APAP 5/325 TAB PO PRN (00:42)
[2018-02-16] MEDS: DRONABINOL 2.5 MG CAP PO SCH ×3 (00:43→20:32)
[2018-02-16] MEDS: PANTOPRAZOLE SODIUM 40 MG TAB PO SCH ×3 (00:43→20:32)
[2018-02-16] MEDS: CLARITHROMYCIN 500 MG TAB PO SCH ×3 (00:44→20:32)
[2018-02-16] MEDS: HYDROmorphONE/DILAUDID 1 MG/ML INJ IVP PRN (01:22)
--- NOTE | 2018-02-16 06:50 | SOAPPROG ---
SOAP Progress Note Assessment/Plan: Assessment: ITP s/p splenectomy. Called in the middle of the night because he was not feeling well. VSS. H/H dropped from 12.2 to 6.7. Was given blood. Abdomen exam quite benign. No immediate intervention planned. Will check again in am Plan: 02/16/18 06:48 Objective: Vital Signs Temp Pulse Resp BP Pulse Ox 36.7 C 85 16 140/70 H 93 02/16/18 04:00 02/16/18 04:00 02/16/18 04:00 02/16/18 04:00 02/16/18 04:00 Laboratory Results 02/16/18 04:30 02/15/18 04:57 02/15/18 02/16/18 02/17/18 05:59 05:59 05:59 Intake Total 1750 400 Output Total 780 825 Balance 970 -425 PT 13.5 SEC (12.0-15.0) 02/01/18 10:00 INR 1.01 (0.83-1.16) 02/01/18 10:00 ICD10 Worksheet Patient Problems: Problems Problem Status Onset Acute ITP Acute ~02/01/18 Oral mucosal lesion Acute Thrombocytopenia Acute
[2018-02-16] MEDS: ACETAMINOPHEN 325 MG TAB PO PRN ×4 (07:35→20:32)
--- NOTE | 2018-02-16 08:49 | HOSPPROG ---
Hospitalist Progress Note Assessment/Plan: # GILILANA - assoc with tachycardia, diaphoresis - s/p 1U PRBC last night and 1U plt - overall hemodynamics have improved - suspect intraabdominal source of blood loss - check US of abd to eval for blood # acute refractory ITP now POD#2 s/p splenectomy - still very refractory to plt transfusion - consider spleen scan to look for accessory spleen - s/p IVIG, high dose dex, nplate, rituxan; - treating h. pylori with amox, clarithromycin and protonix # epistaxis - stable with rhino rocket - discussed with Dr Hugo with ENT - he will follow him peripherally this week and recommends continuing nasal packing for now; - call Dr Hugo with update when closer to dc - would like to remove packing prior to dc - cont afrin prn - cont amox for ppx # etOH use - no w/d # tobacco use # social - intermittently frustrated - has been better since splenectomy; homeless Subjective: had an episode last night of dizziness, diaphoresis; hgb dropped Objective: Vital Signs Temp Pulse Resp BP Pulse Ox 36.7 C 85 16 140/70 H 93 02/16/18 04:00 02/16/18 04:00 02/16/18 04:00 02/16/18 04:00 02/16/18 04:00 Laboratory Results 02/16/18 04:30 02/15/18 04:57 02/15/18 02/16/18 02/17/18 05:59 05:59 05:59 Intake Total 1750 400 Output Total 780 825 Balance 970 -425 PT 13.5 SEC (12.0-15.0) 02/01/18 10:00 INR 1.01 (0.83-1.16) 02/01/18 10:00 high risk - Physical Exam Constitutional: no apparent distress, appears nourished Cardiovascular: regular rate and rhythym, no murmur, rub, or gallop Respiratory: no respiratory distress, no rales or rhonchi, clear to auscultation Gastrointestinal: soft, non-tender abdomen, other (mild ecchymosis around incision;) ICD10 Worksheet Patient Problems: Problems Problem Status Onset Acute ITP Acute ~02/01/18 Oral mucosal lesion Acute Thrombocytopenia Acute
--- NOTE | 2018-02-16 09:24 | SOAPPROG ---
SOAP Progress Note Assessment/Plan: Assessment: 47 y/o M s/p splenectomy for ITP POD #2 S: C/o incisional pain. O: Alert Afebrile Hct 22 after 1uprbc and 1u of plts Plt 5 RRR No increased WOB Abdomen: ttp, ecchymosis surrounding incision, mild firmness, perhaps consistent with hematoma, normoactive bowel sound Plan: Discussed case with medicine. Will need further imaging to determine source of bleeding, although unlikely we would take pt back to OR. 02/16/18 09:21 Objective: Vital Signs Temp Pulse Resp BP Pulse Ox 36.8 C 86 17 140/72 H 99 02/16/18 08:00 02/16/18 08:00 02/16/18 08:00 02/16/18 08:00 02/16/18 08:00 Laboratory Results 02/16/18 04:30 02/15/18 04:57 02/15/18 02/16/18 02/17/18 05:59 05:59 05:59 Intake Total 1750 400 Output Total 780 825 Balance 970 -425 PT 13.5 SEC (12.0-15.0) 02/01/18 10:00 INR 1.01 (0.83-1.16) 02/01/18 10:00 ICD10 Worksheet Patient Problems: Problems Problem Status Onset Acute ITP Acute ~02/01/18 Oral mucosal lesion Acute Thrombocytopenia Acute
--- NOTE | 2018-02-16 09:38 | SOAPPROG ---
SOAP Progress Note Assessment/Plan: Assessment: 1. Refractory ITP 2. s/p splenectomy 02/14 plt count slightly improved. Plan: - will give Nplate 3-4 mcg/kg tomorrow or Wednesday if platelet count not rising substantially - can consider platelet transfusion if surgery has concerns re: bleeding. he will likely hold onto those platelets longer s/p splenectomy. otherwise bleeding symptoms seem improved Subjective: feeling well today. less abd pain. Objective: exam NAD Lungs CTAB CV RRR no MGR Abd: +BS. some ecchymoses and firmness around incisional site Ext: no edema Vital Signs Temp Pulse Resp BP Pulse Ox 36.8 C 86 17 140/72 H 99 02/16/18 08:00 02/16/18 08:00 02/16/18 08:00 02/16/18 08:00 02/16/18 08:00 Laboratory Results 02/16/18 04:30 02/15/18 04:57 02/15/18 02/16/18 02/17/18 05:59 05:59 05:59 Intake Total 1750 400 Output Total 780 825 Balance 970 -425 PT 13.5 SEC (12.0-15.0) 02/01/18 10:00 INR 1.01 (0.83-1.16) 02/01/18 10:00 ICD10 Worksheet Patient Problems: Problems Problem Status Onset Acute ITP Acute ~02/01/18 Oral mucosal lesion Acute Thrombocytopenia Acute
--- NOTE | 2018-02-16 12:19 | CPEKG ---
Test Reason : tachycardia Blood Pressure : / mmHG Vent. Rate : 093 BPM Atrial Rate : 093 BPM P-R Int : 132 ms QRS Dur : 080 ms QT Int : 348 ms P-R-T Axes : 070 065 072 degrees QTc Int : 433 ms SINUS RHYTHM PROBABLE LEFT ATRIAL ABNORMALITY NONSPECIFIC T ABNORMALITIES, ANT-LAT LEADS Confirmed by Ho Genao ([id number]) on 02/16/2018 12:19:18 PM Referred By: Confirmed By:Ho Genao
[2018-02-16 14:17] LABS: PLATELET COUNT 5 10^3/uL (150-400)
[2018-02-16] MEDS: traZODone 50 MG TAB PO PRN (22:30)
[2018-02-17] MEDS: OXYCODONE/APAP 5/325 TAB PO PRN ×3 (03:30→20:26)
[2018-02-17 06:46] LABS: PLATELET COUNT < 3 10^3/uL (150-400)
[2018-02-17] MEDS ORDERED: BISACODYL 10 MG SUPP PR PRN (07:54)
[2018-02-17] MEDS ORDERED: MAGNESIUM HYDROXIDE 30 ML UDCUP PO PRN (07:54)
[2018-02-17] MEDS ORDERED: LACTULOSE 20 GM/30 ML UDCUP PO PRN (07:54)
[2018-02-17] MEDS: SENNOSIDES/DOCUSATE SODIUM TAB PO SCH ×2 (09:43→20:26)
[2018-02-17] MEDS: PANTOPRAZOLE SODIUM 40 MG TAB PO SCH ×2 (09:43→20:25)
[2018-02-17] MEDS: DRONABINOL 2.5 MG CAP PO SCH ×2 (09:44→20:25)
[2018-02-17] MEDS: CLARITHROMYCIN 500 MG TAB PO SCH ×2 (09:44→20:25)
--- NOTE | 2018-02-17 09:49 | SOAPPROG ---
[facility] Progress Note Assessment/Plan: Assessment: 1. Refractory ITP 2. s/p splenectomy 02/14 plt count <3. Plan: - will give Nplate 4 mcg/kg tomorrow - will continue weekly rituximab on 02/20 and 02/27 for a total of 4 doses - no transfusion needed today as pt is not actively bleeding 25 min spent w/ pt and in coordination of care. Subjective: no bleeding. less abd pain. Objective: exam: NAD no new stigmata of bleeding. Vital Signs Temp Pulse Resp BP Pulse Ox 36.4 C 78 16 134/74 H 99 02/17/18 07:34 02/17/18 07:34 02/17/18 07:34 02/17/18 07:34 02/17/18 07:34 Laboratory Results 02/17/18 06:32 02/15/18 04:57 02/16/18 02/17/18 02/18/18 05:59 05:59 05:59 Intake Total 400 500 650 Output Total 825 950 Balance -425 -450 650 PT 13.5 SEC (12.0-15.0) 02/01/18 10:00 INR 1.01 (0.83-1.16) 02/01/18 10:00 ICD10 Worksheet Patient Problems: Problems Problem Status Onset Acute ITP Acute ~02/01/18 Oral mucosal lesion Acute Thrombocytopenia Acute
--- NOTE | 2018-02-17 10:37 | HOSPPROG ---
Hospitalist Progress Note Assessment/Plan: # Acute refractory ITP - remains very refractory to therapy (IVIG, high dose steroids, rituximab, nplate) and now POD#3 s/p splenectomy; no splenunculus seen on abdominal ultrasound - no plt transfusion today as not actively bleeding - hematology following - give nplate tomorrow - weekly rituximab planned for 02/20 and 02/27 (4 total doses) - treating h. pylori with amox, clarithromycin and protonix # ABLA - abdominal US with hematoma in splenic bed which is likely source; hemodynamically stable - s/p 1u PRBC early this AM - follow daily CBC - surgery following, no indication for surgical intervention - if hemodynamics worsen or ongoing transfusion needs, consider repeating abdominal imaging # Epistaxis - stable with rhino rocket - discussed with Dr Hugo with ENT - he will follow him peripherally this week and recommends continuing nasal packing for now; - call Dr Hugo with update when closer to dc - would like to remove packing prior to dc - cont afrin prn - cont amox for ppx # EtOH use - not in w/d # Tobacco use # Social - intermittently frustrated - has been better since splenectomy; homeless # Dispo - Remain inpatient with critically low platelets and intermittent bleeding requiring blood transfusions. Subjective: Got 1u PRBC last night but patient didn't notice any bleeding prior. Minimal abdominal pain around incision site but improving. No BM in last 1.5 days. Denies nausea. No further nosebleeds Objective: Vital Signs Temp Pulse Resp BP Pulse Ox 36.4 C 78 16 134/74 H 99 02/17/18 07:34 02/17/18 07:34 02/17/18 07:34 02/17/18 07:34 02/17/18 07:34 Laboratory Results 02/17/18 06:32 02/15/18 04:57 02/16/18 02/17/18 02/18/18 05:59 05:59 05:59 Intake Total 400 500 650 Output Total 825 950 Balance -425 -450 650 PT 13.5 SEC (12.0-15.0) 02/01/18 10:00 INR 1.01 (0.83-1.16) 02/01/18 10:00 - Physical Exam Constitutional: no apparent distress, appears nourished, not in pain Ears, Nose, Mouth, Throat: no oral mucosal ulcers, other (rhinorocket in L nare) Cardiovascular: regular rate and rhythym, no murmur, rub, or gallop Respiratory: no respiratory distress, no rales or rhonchi, clear to auscultation Gastrointestinal: normoactive bowel sounds, other (LUQ incision site c/d/i with mild bruising), No tenderness, No guarding Skin: other (few bruises on arms/legs) Neurologic: AAOx3, sensation intact bilaterally Psychiatric: interacting appropriately, not anxious, not encephalopathic, thought process linear ICD10 Worksheet Patient Problems: Problems Problem Status Onset Acute ITP Acute ~02/01/18 Oral mucosal lesion Acute Thrombocytopenia Acute
--- NOTE | 2018-02-17 14:58 | ASMTCMCOM ---
CM Note CM Note Notes: Pt's patelets remain low so he is not ready for DC yet. Plan remains to DC to [facility]. Date Signed: 02/17/2018 02:57 PM Electronically Signed By:Rizwana Chung LCSW
[2018-02-17] MEDS: POLYETHYLENE GLYCOL 3350 17 GM PKT PO PRN (17:17)
--- NOTE | 2018-02-17 17:27 | SOAPPROG ---
SOAP Progress Note Assessment/Plan: Assessment: 47 y/o M s/p splenectomy for ITP POD #2 S: C/o incisional pain. O: Alert Afebrile Hct 22 after 1uprbc and 1u of plts Plt 5 RRR No increased WOB Abdomen: ttp, ecchymosis surrounding incision, mild firmness, perhaps consistent with hematoma, normoactive bowel sound Plan: Discussed case with medicine. Will need further imaging to determine source of bleeding, although unlikely we would take pt back to OR. 02/16/18 09:21 Subjective: Feeling much better today. blocking machine tender in abdomen, but improved. Tolerating regular diet and passing gas. On bowel protocol. US from yesterday showed hematoma in splenic bed. Hct up to 25 after 1uprbc. Objective: Vital Signs Temp Pulse Resp BP Pulse Ox 36.8 C 92 16 136/70 H 95 02/17/18 16:45 02/17/18 16:45 02/17/18 16:45 02/17/18 16:45 02/17/18 16:45 Laboratory Results 02/17/18 06:32 02/15/18 04:57 02/16/18 02/17/18 02/18/18 05:59 05:59 05:59 Intake Total 400 500 650 Output Total 825 950 Balance -425 -450 650 PT 13.5 SEC (12.0-15.0) 02/01/18 10:00 INR 1.01 (0.83-1.16) 02/01/18 10:00 ICD10 Worksheet Patient Problems: Problems Problem Status Onset Acute ITP Acute ~02/01/18 Oral mucosal lesion Acute Thrombocytopenia Acute
[2018-02-17] MEDS: LORazepam 1 MG TAB PO PRN (20:26)
[2018-02-18 04:52] LABS: PLATELET COUNT < 3 10^3/uL (150-400)
[2018-02-18] MEDS: SENNOSIDES/DOCUSATE SODIUM TAB PO SCH ×2 (09:44→21:00)
[2018-02-18] MEDS: PANTOPRAZOLE SODIUM 40 MG TAB PO SCH (09:44)
[2018-02-18] MEDS: DRONABINOL 2.5 MG CAP PO SCH (09:45)
[2018-02-18] MEDS: CLARITHROMYCIN 500 MG TAB PO SCH (09:45)
--- NOTE | 2018-02-18 09:56 | SOAPPROG ---
SOAP Progress Note Assessment/Plan: Assessment: 1. Refractory ITP 2. 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 Plan: - will give Nplate 4 mcg/kg today - will continue weekly rituximab on 02/20 and 02/27 for a total of 4 doses - can consider RBC transfusion - will order flow on peripheral blood to evaluate for underlying lymphoproliferative disorder. Unusual for ITP to be this refractory. Can consider BMBx at some point but at this point in time the risk seems high ( bleeding) given the potential benefit. 25 min spent w/ pt and in coordination of care. 02/18/18 09:55 Subjective: abd feels better. Objective: exam unchanged Vital Signs Temp Pulse Resp BP Pulse Ox 36.9 C 76 16 120/80 96 02/18/18 08:00 02/18/18 08:00 02/18/18 04:00 02/18/18 08:00 02/18/18 08:00 Laboratory Results 02/18/18 04:22 02/15/18 04:57 02/17/18 02/18/18 02/19/18 05:59 05:59 05:59 Intake Total 500 2330 Output Total 950 Balance -450 2330 PT 13.5 SEC (12.0-15.0) 02/01/18 10:00 INR 1.01 (0.83-1.16) 02/01/18 10:00 ICD10 Worksheet Patient Problems: Problems Problem Status Onset Acute ITP Acute ~02/01/18 Oral mucosal lesion Acute Thrombocytopenia Acute
[2018-02-18] MEDS: OXYCODONE/APAP 5/325 TAB PO PRN ×2 (11:34→21:05)
[2018-02-18] MEDS ORDERED: ROMIPLOSTIM 250 MCG/0.5 ML SC ONE (12:00)
--- NOTE | 2018-02-18 12:22 | SOAPPROG ---
SOAP Progress Note Assessment/Plan: Assessment: 47 y/o M s/p splenectomy for ITP POD #2 S: C/o incisional pain. O: Alert Afebrile Hct 22 after 1uprbc and 1u of plts Plt 5 RRR No increased WOB Abdomen: ttp, ecchymosis surrounding incision, mild firmness, perhaps consistent with hematoma, normoactive bowel sound Plan: Discussed case with medicine. Will need further imaging to determine source of bleeding, although unlikely we would take pt back to OR. 02/16/18 09:21 Subjective: Continues to feel better. Abdomen sore, but not too painful. Passing gas and BMs. Tolerating regular diet. Objective: Vital Signs Temp Pulse Resp BP Pulse Ox 36.9 C 76 16 120/80 96 02/18/18 08:00 02/18/18 08:00 02/18/18 04:00 02/18/18 08:00 02/18/18 08:00 Laboratory Results 02/18/18 04:22 02/15/18 04:57 02/17/18 02/18/18 02/19/18 05:59 05:59 05:59 Intake Total 500 2330 Output Total 950 Balance -450 2330 PT 13.5 SEC (12.0-15.0) 02/01/18 10:00 INR 1.01 (0.83-1.16) 02/01/18 10:00 ICD10 Worksheet Patient Problems: Problems Problem Status Onset Acute ITP Acute ~02/01/18 Oral mucosal lesion Acute Thrombocytopenia Acute
--- NOTE | 2018-02-18 15:06 | HOSPPROG ---
Hospitalist Progress Note Assessment/Plan: # Acute refractory ITP - remains very refractory to therapy (IVIG, high dose steroids, rituximab, nplate) and now POD#4 s/p splenectomy; no splenunculus seen on abdominal ultrasound - no plt transfusion today as not actively bleeding - hematology following - give nplate today - weekly rituximab planned for 02/20 and 02/27 (4 total doses) - treating h. pylori with amox, clarithromycin and protonix - last day is today 02/18 # ABLA - abdominal US with hematoma in splenic bed which is likely source; hemodynamically stable - s/p 1u PRBC on 02/17, will hold on transfusion today - follow daily CBC - surgery following, no indication for surgical intervention - if hemodynamics worsen or ongoing transfusion needs, consider repeating abdominal imaging # Epistaxis - stable with rhino rocket - discussed with Dr Hugo with ENT who stopped by room today; call Dr Hugo with update when closer to dc - would like to remove packing prior to dc - cont afrin prn - cont amox for ppx # EtOH use - not in w/d # Tobacco use # Social - intermittently frustrated - has been better since splenectomy; homeless # Dispo - Remain inpatient with critically low platelets and intermittent bleeding requiring blood transfusions. Subjective: No complaints this morning. Denies bleeding. Abdominal pain improving but still there, feels crampy. Had BM this morning. No blood in urine. Objective: Vital Signs Temp Pulse Resp BP Pulse Ox 36.9 C 76 16 120/80 96 02/18/18 08:00 02/18/18 08:00 02/18/18 04:00 02/18/18 08:00 02/18/18 08:00 Laboratory Results 02/18/18 04:22 02/15/18 04:57 02/17/18 02/18/18 02/19/18 05:59 05:59 05:59 Intake Total 500 2330 Output Total 950 Balance -450 2330 PT 13.5 SEC (12.0-15.0) 02/01/18 10:00 INR 1.01 (0.83-1.16) 02/01/18 10:00 - Physical Exam Constitutional: no apparent distress, appears nourished, not in pain Ears, Nose, Mouth, Throat: moist mucous membranes, no oral mucosal ulcers, other (left nare rhinorocket in place) Cardiovascular: regular rate and rhythym, no murmur, rub, or gallop Respiratory: no respiratory distress, no rales or rhonchi, clear to auscultation Gastrointestinal: other (LUQ surgical site c/d/i with stable ecchymoses) Skin: other (scattered bruising on legs, no petechia visualized) Neurologic: AAOx3, sensation intact bilaterally Psychiatric: interacting appropriately, not anxious, not encephalopathic, thought process linear ICD10 Worksheet Patient Problems: Problems Problem Status Onset Acute ITP Acute ~02/01/18 Oral mucosal lesion Acute Thrombocytopenia Acute
[2018-02-18] MEDS: LORazepam 1 MG TAB PO PRN (21:01)
[2018-02-18] MEDS: traZODone 50 MG TAB PO PRN (21:01)
[2018-02-19] MEDS: LORazepam 1 MG TAB PO PRN ×2 (04:50→21:41)
[2018-02-19 07:40] LABS: PLATELET COUNT < 3 10^3/uL (150-400)
[2018-02-19] MEDS: SENNOSIDES/DOCUSATE SODIUM TAB PO SCH ×2 (08:44→21:41)
--- NOTE | 2018-02-19 11:08 | SOAPPROG ---
SOAP Progress Note Assessment/Plan: A/P: * Severe thrombocytopenia: most likely ITP, but no response to therapy thus far. Bleeding has improved, however. High-dose Dex x2 courses, Rituxan (02/05, , due 02/20 and 02/25), IVIG 1 g/kg x2 days, splenectomy 02/14 (path nl), Nplate (1 mcg/kg 02/07, 2 mcg/kg 02/11, 4 mcg/kg 02/18), +H pylori tx. Has not had bmbx (has refused and concern with <3,000 plts). Discussed that response to second-line therapies can be delayed (time to response after splenectomy can be> =7 days, Nplate >=2 wks, Rituxan >=2 wks). No other suspicious findings to suggest other cause of thrombocytopenia (small M-protein, normal k/l light chains). Per blood flow pending. - Rituxan 02/20 and 02/27 to complete 4 weeks - continue to titrate Nplate up (max dose 10 mcg/kg) - could use Amicar for bleeding (particularly mucosal) - plt transfusion for bleeding - flow cytometry pending - check DIC panel, anti-phospholipid studies, CMV * Anemia: c/w blood loss. 02/19/18 11:09 Subjective: Very frustrated with lack of improvement. No AP. No bleeding. O: VS reviewed. Gen: angry, NAD. HEENT: left nasal packing. Laboratory Tests 02/14/18 02/15/18 02/19/18 05:00 04:57 07:30 WBC 8.79 Hgb 7.7 L Plt Count < 3 L* Sodium 135 Potassium 4.7 Chloride 101 Carbon Dioxide 21 L BUN 21 Creatinine 0.6 L Iron 71.0 TIBC 319 Iron Saturation 22 Ferritin 256.0 Objective: Vital Signs Temp Pulse Resp BP Pulse Ox 36.8 C 77 97 H 118/66 99 02/19/18 07:49 02/19/18 07:49 02/19/18 07:49 02/19/18 07:49 02/18/18 20:02 Laboratory Results 02/19/18 07:30 02/15/18 04:57 02/18/18 02/19/18 02/20/18 05:59 05:59 05:59 Intake Total 2330 400 Output Total 350 Balance 2330 50 PT 13.5 SEC (12.0-15.0) 02/01/18 10:00 INR 1.01 (0.83-1.16) 02/01/18 10:00 ICD10 Worksheet Patient Problems: Problems Problem Status Onset Acute ITP Acute ~02/01/18 Oral mucosal lesion Acute Thrombocytopenia Acute
--- NOTE | 2018-02-19 11:15 | SOAPPROG ---
LEE Progress Note Assessment/Plan: Assessment: 47yo M s/p splenectomy for thrombo 2/2 ITP - VSS, HDs - Hb stable, plts still markedly low - abdomen is soft, his incision is clean and he is tolerating diet. Plan: 02/19/18 11:14 Subjective: want to leave Objective: Vital Signs Temp Pulse Resp BP Pulse Ox 36.8 C 77 97 H 118/66 99 02/19/18 07:49 02/19/18 07:49 02/19/18 07:49 02/19/18 07:49 02/18/18 20:02 Laboratory Results 02/19/18 07:30 02/15/18 04:57 02/18/18 02/19/18 02/20/18 05:59 05:59 05:59 Intake Total 2330 400 Output Total 350 Balance 2330 50 PT 13.5 SEC (12.0-15.0) 02/01/18 10:00 INR 1.01 (0.83-1.16) 02/01/18 10:00 ICD10 Worksheet Patient Problems: Problems Problem Status Onset Acute ITP Acute ~02/01/18 Oral mucosal lesion Acute Thrombocytopenia Acute
--- NOTE | 2018-02-19 15:41 | HOSPPROG ---
Hospitalist Progress Note Assessment/Plan: # Acute refractory ITP - remains very refractory to therapy (IVIG, high dose steroids, rituximab, nplate) and now POD#5 s/p splenectomy; no splenunculus seen on abdominal ultrasound - no plt transfusion today as not actively bleeding - hematology following - weekly rituximab planned for 02/20 and 02/27 (4 total doses) - completed tx for h. pylori - considering bone marrow bx to evaluate for underlying heme malignancy # ABLA - abdominal US with hematoma in splenic bed which is likely source; hemodynamically stable - s/p 1u PRBC on 02/17, will hold on further transfusion today - follow daily CBC - surgery following, no indication for surgical intervention - if hemodynamics worsen or ongoing transfusion needs, consider repeating abdominal imaging # Epistaxis - stable with rhino rocket - discussed with Dr Hugo with ENT who stopped by room today; call Dr Hugo with update when closer to dc - would like to remove packing prior to dc - cont afrin prn - cont amox for ppx # EtOH use - not in w/d # Tobacco use # Social - nabil frustrated re: no improvement; homeless # Dispo - Remain inpatient with critically low platelets and intermittent bleeding requiring blood transfusions. Subjective: Very frustrated and upset today as no therapies are working. No bleeding. He does have some new sores in his mouth Objective: Vital Signs Temp Pulse Resp BP Pulse Ox 36.7 C 84 14 124/68 H 98 02/19/18 15:30 02/19/18 15:30 02/19/18 15:30 02/19/18 15:30 02/19/18 15:30 Laboratory Results 02/19/18 07:30 02/15/18 04:57 02/18/18 02/19/18 02/20/18 05:59 05:59 05:59 Intake Total 2330 400 Output Total 350 Balance 2330 50 PT 13.5 SEC (12.0-15.0) 02/01/18 10:00 INR 1.01 (0.83-1.16) 02/01/18 10:00 - Physical Exam Constitutional: no apparent distress, appears nourished, not in pain Ears, Nose, Mouth, Throat: other (2 lesions in buccal musosa) Cardiovascular: regular rate and rhythym, no murmur, rub, or gallop Respiratory: no respiratory distress, no rales or rhonchi, clear to auscultation Gastrointestinal: normoactive bowel sounds, soft, non-tender abdomen, no palpable masses Skin: no rashes or abrasions, no fluctuance, no induration Neurologic: AAOx3, sensation intact bilaterally ICD10 Worksheet Patient Problems: Problems Problem Status Onset Acute ITP Acute ~02/01/18 Oral mucosal lesion Acute Thrombocytopenia Acute
--- NOTE | 2018-02-19 16:53 | ASMTCMCOM ---
CM Note CM Note Notes: Pt continues to be ill, no dc date yet. He is homeless and will likely dc to [facility] when medically stable, CM w/f. DC Plan: Nursing Home Date Signed: 02/19/2018 04:52 PM Electronically Signed By:Veena Wilhelm RN
[2018-02-19] MEDS: traZODone 50 MG TAB PO PRN (21:41)
[2018-02-19] MEDS: MBX SOLN 30 ML BOTTLE PO PRN (21:42)
[2018-02-19] MEDS: ACETAMINOPHEN 325 MG TAB PO PRN (21:44)
[2018-02-20] MEDS: LORazepam 1 MG TAB PO PRN ×3 (04:24→20:06)
[2018-02-20] MEDS: ACETAMINOPHEN 325 MG TAB PO PRN (04:24)
[2018-02-20] MEDS: MBX SOLN 30 ML BOTTLE PO PRN ×2 (04:26→08:12)
[2018-02-20 05:57] LABS: PLATELET COUNT < 3 10^3/uL (150-400)
[2018-02-20] MEDS ORDERED: diphenhydrAMINE 50 MG CAP PO ONE (09:30)
[2018-02-20] MEDS ORDERED: ACETAMINOPHEN 325 MG TAB PO ONE (09:30)
[2018-02-20] MEDS: SENNOSIDES/DOCUSATE SODIUM TAB PO SCH ×2 (09:36→20:02)
[2018-02-20] MEDS ORDERED: riTUXimab 600 MG in NS 540 ML IV ONE (10:00)
--- NOTE | 2018-02-20 11:09 | SOAPPROG ---
SOAP Progress Note Assessment/Plan: A/P: * Severe thrombocytopenia: most likely ITP, but no response to therapy thus far. Bleeding has improved, however. High-dose Dex x2 courses, Rituxan (02/05, , due 02/20 and 02/25), IVIG 1 g/kg x2 days, splenectomy 02/14 (path nl), Nplate (1 mcg/kg 02/07, 2 mcg/kg 02/11, 4 mcg/kg 02/18), +H pylori tx. Has not had bmbx (has refused and concern with <3,000 plts). Discussed that response to second-line therapies can be delayed (time to response after splenectomy can be> =7 days, Nplate >=2 wks, Rituxan >=2 wks). No other suspicious findings to suggest other cause of thrombocytopenia (small M-protein, normal k/l light chains). Discussed bmbx again and he is now willing. - Rituxan today and 02/27 to complete 4 weeks - continue to titrate Nplate up (max dose 10 mcg/kg), next dose would be due 02/25 but would probably treat earlier - could use Amicar for bleeding (particularly mucosal) - plt transfusion for bleeding - flow cytometry pending - DIC panel, anti-phospholipid studies, CMV, flow cytometry pending - bmbx tomorrow with plt xfus right before, he will need premeds due to anxiety - eventual CT C/A/P * Elevated LDH: no other e/o hemolysis, Coomb's was not done initially and may be effected by IVIG. Suspect due to splenic bed hematoma post-splenectomy ( seen on imaging) but raises possiblilty of lymphoproliferative d/o. * Anemia: c/w blood loss. 02/20/18 11:10 Subjective: Small amt intermittent bleeding from right naris, no from left. No other bleeding. O: AF, VS reviewed. Gen: NAD, more appropachable today. HEENT: right nasal packing. Laboratory Tests 02/20/18 05:10 Sodium 135 Potassium 3.8 Chloride 106 Carbon Dioxide 22 BUN 17 Creatinine 0.6 L AST 141 H ALT 88 H Alkaline Phosphatase 70 Lactate Dehydrogenase 1644 H Laboratory Tests 02/20/18 05:10 WBC 10.51 H Hgb 7.8 L Plt Count < 3 L* Objective: Vital Signs Temp Pulse Resp BP Pulse Ox 36.4 C 84 14 115/88 H 97 02/20/18 08:00 02/20/18 08:00 02/20/18 08:00 02/20/18 08:00 02/20/18 08:00 Laboratory Results 02/20/18 05:10 02/20/18 05:10 02/19/18 02/20/18 02/21/18 05:59 05:59 05:59 Intake Total 400 500 Output Total 350 Balance 50 500 PT 13.5 SEC (12.0-15.0) 02/01/18 10:00 INR 1.01 (0.83-1.16) 02/01/18 10:00 ICD10 Worksheet Patient Problems: Problems Problem Status Onset Acute ITP Acute ~02/01/18 Oral mucosal lesion Acute Thrombocytopenia Acute
--- NOTE | 2018-02-20 13:46 | HOSPPROG ---
Hospitalist Progress Note Assessment/Plan: # Acute ITP - remains very refractory to therapy (IVIG, high dose steroids, rituximab, nplate) and now POD#6 s/p splenectomy; no splenunculus seen on abdominal ultrasound. Completed treatment for h pylori. Per heme, may take several weeks for ritux and Nplate to take effect. - planning on bone marrow biopsy tomorrow with pre-biopsy plt transfusion - no plt transfusion today as not actively bleeding - rituximab today, 4th dose on 02/27 - can get next dose of Nplate on 02/25 - follow up DIC panel, flow cytometry, anti-phospholipid abs, CMV abs to eval for alternate causes of thrombocytopenia # ABLA - abdominal US with hematoma in splenic bed which is likely source; hemodynamically stable - no indication for transfusion today - follow daily CBC - if hemodynamics worsen or ongoing transfusion needs, consider repeating abdominal imaging # Epistaxis - stable with rhino rocket - discussed with Dr Hugo with ENT who stopped by room today; call Dr Hugo with update when closer to dc - would like to remove packing prior to dc - cont afrin prn - cont amox for ppx # EtOH use - not in w/d # Tobacco use # Social - frustration improved; homeless # Dispo - Remain inpatient with critically low platelets and intermittent bleeding requiring blood transfusions. Subjective: Mood better today. No abdominal pain or new bleeding. Objective: Vital Signs Temp Pulse Resp BP Pulse Ox 36.8 C 83 16 106/68 96 02/20/18 12:15 02/20/18 13:33 02/20/18 13:33 02/20/18 13:33 02/20/18 13:33 Laboratory Results 02/20/18 05:10 02/20/18 05:10 02/19/18 02/20/18 02/21/18 05:59 05:59 05:59 Intake Total 400 500 Output Total 350 Balance 50 500 PT 13.5 SEC (12.0-15.0) 02/01/18 10:00 INR 1.01 (0.83-1.16) 02/01/18 10:00 - Physical Exam Constitutional: no apparent distress, appears nourished, not in pain Cardiovascular: regular rate and rhythym, no murmur, rub, or gallop Respiratory: no respiratory distress, no rales or rhonchi, clear to auscultation Gastrointestinal: normoactive bowel sounds, soft, non-tender abdomen, no palpable masses, other (splenectomy incision healing well) Skin: no rashes or abrasions, no fluctuance, no induration Neurologic: AAOx3, sensation intact bilaterally Psychiatric: interacting appropriately, not anxious, not encephalopathic, thought process linear ICD10 Worksheet Patient Problems: Problems Problem Status Onset Acute ITP Acute ~02/01/18 Oral mucosal lesion Acute Thrombocytopenia Acute
[2018-02-20] MEDS: traZODone 50 MG TAB PO PRN (20:06)
[2018-02-21 06:53] LABS: PLATELET COUNT 3 10^3/uL (150-400)
[2018-02-21 06:55] LABS: INR 1.17 (0.83-1.16); PROTIME(PATIENT) 15.1 SEC (12.0-15.0)
[2018-02-21] MEDS: OXYCODONE/APAP 5/325 TAB PO PRN ×2 (08:05→15:39)
[2018-02-21] MEDS: SENNOSIDES/DOCUSATE SODIUM TAB PO SCH ×2 (08:10→21:14)
--- NOTE | 2018-02-21 10:03 | SOAPPROG ---
SOAP Progress Note Assessment/Plan: Assessment/Plan: 47 Y homeless M c ITP recalcitrant to medical management. s/p splenectomy. Severe thrombocytopenia. Recalcitrant to medicines and splenectomy. Possible bone marrow biopsy soon? Has had preop vaccines. Seen with Dr. Hanley. S: minimal pain. showed us a clot from his nose. seems frustrated, but cooperative. O: gen: alert, nad nasal packing in L nostril ctab rrr abd soft, +BS, wounds clean, +ecchymosis 02/21/18 10:01 Objective: Vital Signs Temp Pulse Resp BP Pulse Ox 37.4 C 95 16 112/60 94 02/21/18 08:15 02/21/18 08:15 02/21/18 08:15 02/21/18 08:15 02/21/18 08:15 Laboratory Results 02/21/18 06:30 02/20/18 05:10 02/20/18 02/21/18 02/22/18 05:59 05:59 05:59 Intake Total 500 840 Balance 500 840 PT 15.1 SEC (12.0-15.0) H 02/21/18 06:30 INR 1.17 (0.83-1.16) H 02/21/18 06:30 ICD10 Worksheet Patient Problems: Problems Problem Status Onset Acute ITP Acute ~02/01/18 Oral mucosal lesion Acute Thrombocytopenia Acute
--- NOTE | 2018-02-21 14:33 | SOAPPROG ---
SOAP Progress Note Assessment/Plan: Assessment/Plan: 47 yo man w severe thrombocytopenia 1. presumed refractory ITP but no response to therapy thus far High dose dex x 2 courses Rituxan (02/05, 02/13, 02/20, due 02/25) IVIG 1g/kg x 2 days Splenectomy 02/14 path normal Nplate (1mcg/kg 02/07, 2mcg/kg 02/11, 4mcg/kg 02/18) + H pylori treatment understands that second line therapies can be delayed No other findings to suggest other cause of thrombocytopenia (small M protein, normal light chains) BMBx decided on for tomorrow - will due through IR given pt anxiety and preference for sedation Next Rituxan 02/27 to complete 4 weeks next dose Nplate due 02/25; will titrate up could use amicar for bleeding flow pending CMV, APLA panel pending eventual CT CAP 2. anemia - due to #1 transfuse today follow up post spleen hematoma 3. elevated LDH - raises possibility of lymphoproliferative d/o spleen path nml Subjective: Nothing acute left upper quadrant pain improved Objective: Vital Signs Temp Pulse Resp BP Pulse Ox 37.4 C 95 16 112/60 94 02/21/18 08:15 02/21/18 08:15 02/21/18 08:15 02/21/18 08:15 02/21/18 08:15 Laboratory Results 02/21/18 06:30 02/20/18 05:10 02/20/18 02/21/18 02/22/18 05:59 05:59 05:59 Intake Total 500 840 Output Total 150 Balance 500 840 -150 PT 15.1 SEC (12.0-15.0) H 02/21/18 06:30 INR 1.17 (0.83-1.16) H 02/21/18 06:30 Gen - NAD HEENT - rhino rocket on left intact OP clear CV - RRR Abd - post splenectomy bruising abd soft Ext - healing ecchymoses ICD10 Worksheet Patient Problems: Problems Problem Status Onset Acute ITP Acute ~02/01/18 Oral mucosal lesion Acute Thrombocytopenia Acute
--- NOTE | 2018-02-21 16:46 | HOSPPROG ---
Hospitalist Progress Note Assessment/Plan: # Refractory thrombocytopenia: Suspected ITP although remains very refractory to therapy (IVIG, high dose steroids, rituximab, nplate) and now POD#7 s/p splenectomy; no splenunculus seen on abdominal ultrasound. Completed treatment for h pylori. Per heme, may take several weeks for ritux and Nplate to take effect. - Bone marrow biopsy tomorrow with IR - Plan for platelet transfusion tomorrow prior to biopsy - 4th dose of rituximab due 02/27 - Can get next dose of Nplate on 02/25 - Follow up CMV abs, anti-phospholipid abs to eval for alternate causes # Blood loss anemia: Hgb dropped 1.5g over last 24 hours but has remained hemodynamically stable and relatively asymptomatic. Larger ecchymosis on left flank and suspect ongoing oozing in splenic bed. - 1u PRBC today - If tachycardic or increasing abdominal pain, plan for abdominal CT and call surgery - Daily CBC # Epistaxis - stable with rhino rocket - discussed with Dr Hugo with ENT who stopped by room today; call Dr Hugo with update when closer to dc - would like to remove packing prior to dc - cont afrin prn - cont amox for ppx # EtOH use - not in w/d # Tobacco use # Social - frustration improved; homeless # Dispo - Remain inpatient with critically low platelets and intermittent bleeding requiring blood transfusions. Subjective: Doing ok, still frustrated but better. Minimal abdominal pain. Had some dizziness with standing earlier. Objective: Vital Signs Temp Pulse Resp BP Pulse Ox 37.4 C 95 16 112/60 94 02/21/18 08:15 02/21/18 08:15 02/21/18 08:15 02/21/18 08:15 02/21/18 08:15 Laboratory Results 02/21/18 06:30 02/20/18 05:10 02/20/18 02/21/18 02/22/18 05:59 05:59 05:59 Intake Total 500 840 Output Total 150 Balance 500 840 -150 PT 15.1 SEC (12.0-15.0) H 02/21/18 06:30 INR 1.17 (0.83-1.16) H 02/21/18 06:30 - Physical Exam Constitutional: no apparent distress, appears nourished, not in pain Eyes: PERRL, anicteric sclera, EOMI Ears, Nose, Mouth, Throat: other (2 oral lesions) Cardiovascular: regular rate and rhythym, no murmur, rub, or gallop Respiratory: no respiratory distress, no rales or rhonchi, clear to auscultation Gastrointestinal: soft, non-tender abdomen, other (large ecchymoses that is new over last 24-48 hours, splenectomy incision c/d/i), No tenderness, No rebound, No distension Skin: no rashes or abrasions, no fluctuance, no induration Musculoskeletal: other (no joint tenderness or effusions) Neurologic: AAOx3, sensation intact bilaterally Psychiatric: interacting appropriately, not anxious, not encephalopathic, thought process linear ICD10 Worksheet Patient Problems: Problems Problem Status Onset Acute ITP Acute ~02/01/18 Oral mucosal lesion Acute Thrombocytopenia Acute
[2018-02-21] MEDS: MELATONIN 3 MG TAB PO PRN (21:18)
[2018-02-21] MEDS: ACETAMINOPHEN 325 MG TAB PO PRN (21:18)
[2018-02-21] MEDS: LORazepam 1 MG TAB PO PRN (21:19)
[2018-02-21] MEDS: traZODone 50 MG TAB PO PRN (23:05)
[2018-02-22 12:43] LABS: PLATELET COUNT < 3 10^3/uL (150-400)
[2018-02-22] MEDS ORDERED: ALTEPLASE 2 MG VIAL IVP PRN (14:22)
[2018-02-22] MEDS ORDERED: NALOXONE HCL 0.4 MG/ML INJ IVP PRN (14:22)
[2018-02-22] MEDS ORDERED: HEPARIN 10,000 UNIT/10 ML MDV (1,000 UNIT/ML) IVP PRN (14:22)
[2018-02-22] MEDS ORDERED: MIDAZOLAM 2 MG/2 ML VIAL IVP PRN (14:22)
[2018-02-22] MEDS ORDERED: GLUCAGON HCL 1 MG VIAL IVP PRN (14:22)
[2018-02-22] MEDS ORDERED: MEPERIDINE 25 MG/ML SYR IVP PRN (14:22)
[2018-02-22] MEDS ORDERED: fentaNYL 100 MCG/2 ML INJ IVP PRN (14:22)
[2018-02-22] MEDS ORDERED: PROTAMINE SULFATE 50 MG/5 ML VIAL IVP PRN (14:22)
[2018-02-22] MEDS ORDERED: FLUMAZENIL 0.5 MG/5 ML MDV IVP PRN (14:22)
[2018-02-22] MEDS ORDERED: NS 1,000 ML IV SCH (14:30)
[2018-02-22] MEDS: SENNOSIDES/DOCUSATE SODIUM TAB PO SCH ×2 (14:40→20:48)
--- NOTE | 2018-02-22 14:57 | HOSPPROG ---
Hospitalist Progress Note Assessment/Plan: # Refractory thrombocytopenia: Suspected ITP although remains very refractory to therapy (IVIG, high dose steroids, rituximab, nplate) and now POD#8 s/p splenectomy; no splenunculus seen on abdominal ultrasound. Completed treatment for h pylori. Per heme, may take several weeks for ritux and Nplate to take effect. - Bone marrow biopsy today with IR with platelet transfusion immediately prior - 4th dose of rituximab due 02/27 - Can get next dose of Nplate on 02/25 - Follow up CMV abs, anti-phospholipid abs to eval for alternate causes - Possible CT c/a/p this week pending above # Blood loss anemia: Suspect oozing into splenic bed evidenced by large left flank ecchymosis. Hemodynamics stable - s/p 1u PRBC 02/21 with good response - If tachycardic or increasing abdominal pain, plan for abdominal CT and call surgery # Epistaxis - stable with rhino rocket - discussed with Dr Hugo with ENT who stopped by room today; call Dr Hugo with update when closer to dc - would like to remove packing prior to dc - cont afrin prn - cont amox for ppx # EtOH use - not in w/d # Tobacco use # Social - frustration improved; homeless # Dispo - Remain inpatient with critically low platelets and intermittent bleeding requiring blood transfusions. Subjective: Abdominal pain/cramping improved. No more dizziness with standing. Objective: Vital Signs Temp Pulse Resp BP Pulse Ox 36.9 C 98 16 118/68 96 02/22/18 14:25 02/22/18 14:25 02/22/18 14:25 02/22/18 14:25 02/22/18 14:25 Laboratory Results 02/21/18 06:30 02/20/18 05:10 02/21/18 02/22/18 02/23/18 05:59 05:59 05:59 Intake Total 840 440 Output Total 150 Balance 840 290 PT 15.1 SEC (12.0-15.0) H 02/21/18 06:30 INR 1.17 (0.83-1.16) H 02/21/18 06:30 - Physical Exam Constitutional: no apparent distress, appears nourished, not in pain Ears, Nose, Mouth, Throat: moist mucous membranes, hearing normal, ears appear normal, no oral mucosal ulcers Cardiovascular: regular rate and rhythym, no murmur, rub, or gallop Respiratory: no respiratory distress, no rales or rhonchi, clear to auscultation Gastrointestinal: other (Large left flank ecchymoses, not enlarged from yesterday, splenectomy incision c/d/i), No tenderness, No distension Neurologic: AAOx3, sensation intact bilaterally Psychiatric: interacting appropriately, not anxious, not encephalopathic, thought process linear ICD10 Worksheet Patient Problems: Problems Problem Status Onset Acute ITP Acute ~02/01/18 Oral mucosal lesion Acute Thrombocytopenia Acute
--- NOTE | 2018-02-22 16:44 | SOAPPROG ---
SOAP Progress Note Assessment/Plan: Assessment/Plan: 47 Y homeless M c ITP recalcitrant to medical management. s/p splenectomy. Severe thrombocytopenia. Recalcitrant to medicines and splenectomy. In bone marrow biopsy procedure now. Has had preop vaccines. Healing well from surgery but still with a serious problem. Will follow peripherally--please reconsult if more urgent problems or concerns. 02/22/18 16:43 Objective: Vital Signs Temp Pulse Resp BP Pulse Ox 37 C 98 16 107/80 100 02/22/18 15:50 02/22/18 14:25 02/22/18 14:25 02/22/18 16:16 02/22/18 16:16 Laboratory Results 02/22/18 06:10 02/20/18 05:10 02/21/18 02/22/18 02/23/18 05:59 05:59 05:59 Intake Total 840 440 0 Output Total 150 Balance 840 290 0 PT 15.1 SEC (12.0-15.0) H 02/21/18 06:30 INR 1.17 (0.83-1.16) H 02/21/18 06:30 ICD10 Worksheet Patient Problems: Problems Problem Status Onset Acute ITP Acute ~02/01/18 Oral mucosal lesion Acute Thrombocytopenia Acute
--- NOTE | 2018-02-22 17:03 | ASMTCMCOM ---
CM Note CM Note Notes: Pt is s/p splenectomy and bone bx. He is still resistant to discussing d/c options but not medically ready for d/c at this time. CM will continue to follow. Date Signed: 02/22/2018 05:02 PM Electronically Signed By:XAVI Martínez
[2018-02-22] MEDS: ACETAMINOPHEN 325 MG TAB PO PRN (20:48)
[2018-02-22] MEDS: LORazepam 1 MG TAB PO PRN (20:49)
[2018-02-22] MEDS: MELATONIN 3 MG TAB PO PRN (23:37)
[2018-02-23 04:35] LABS: PLATELET COUNT < 3 10^3/uL (150-400)
[2018-02-23] MEDS: LORazepam 1 MG TAB PO PRN ×2 (05:00→18:37)
[2018-02-23] MEDS: SENNOSIDES/DOCUSATE SODIUM TAB PO SCH ×2 (08:36→19:32)
--- NOTE | 2018-02-23 14:36 | SOAPPROG ---
SOAP Progress Note Assessment/Plan: Assessment/Plan: 47 yo man w severe thrombocytopenia 1. presumed refractory ITP but no response to therapy thus far High dose dex x 2 courses Rituxan (02/05, 02/13, 02/20, due 02/25) IVIG 1g/kg x 2 days Splenectomy 02/14 path normal Nplate (1mcg/kg 02/07, 2mcg/kg 02/11, 4mcg/kg 02/18) - repeat dose at 6mcg/kg tomorrow + H pylori treatment understands that second line therapies can have delayed response No other findings to suggest other cause of thrombocytopenia (but small M protein, normal light chains) BMBx done 02/22 - path pending Next Rituxan 02/27 to complete 4 weeks next dose Nplate tomorrow; will titrate up could use amicar for bleeding flow pending CMV negative 2. anemia - worse today due to #1 needs transfusion follow up post spleen hematoma will repeat CT CAP 3. elevated LDH - raises possibility of lymphoproliferative d/o spleen path nml 02/23/18 14:34 Subjective: Nothing acute overnight denies abdominal pain or issues breathing notes dark stools today Objective: Vital Signs Temp Pulse Resp BP Pulse Ox 36.9 C 90 16 117/70 97 02/23/18 09:00 02/23/18 09:00 02/23/18 09:00 02/23/18 09:00 02/23/18 09:00 Laboratory Results 02/23/18 03:53 02/20/18 05:10 02/22/18 02/23/18 02/24/18 05:59 05:59 05:59 Intake Total 440 1580 Output Total 150 475 Balance 290 1580 -475 PT 15.1 SEC (12.0-15.0) H 02/21/18 06:30 INR 1.17 (0.83-1.16) H 02/21/18 06:30 Gen - NAD HEENT - left nasal rhino rocket; OP clear CV - mild tachy Resp - CTAB abd - left upper quad and left flank ecchymoses without sig change ext - no sig edema or bruising ICD10 Worksheet Patient Problems: Problems Problem Status Onset Acute ITP Acute ~02/01/18 Oral mucosal lesion Acute Thrombocytopenia Acute
--- NOTE | 2018-02-23 15:43 | HOSPPROG ---
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 Completed treatment for h pylori. Per heme, may take several weeks for ritux and Nplate to take effect. - Bone marrow biopsy on 02/22. Results pending - 4th dose of rituximab due 02/27 - Can get next dose of Nplate on 02/25 - Follow up CMV abs, anti-phospholipid abs to eval for alternate causes - Possible CT c/a/p this week pending above - no indication for platelet transfusion today # Blood loss anemia: Suspect oozing into splenic bed evidenced by large left flank ecchymosis. Hemodynamics stable - s/p 1u PRBC 02/21, but now Hgb has dropped again. Etiology unclear. Will transfuse 2 units given that a bleed has not been fully r/o. Obtain CT c/a/p - If bleeding present, would need surgical eval # Epistaxis - stable with rhino rocket - discussed with Dr Hugo with ENT who stopped by room today; call Dr Hugo with update when closer to dc - would like to remove packing prior to dc - cont afrin prn - cont amox for ppx # EtOH use - not in w/d # Tobacco use # Social - frustration improved; homeless # Dispo - Remain inpatient with critically low platelets and intermittent bleeding requiring blood transfusions. Plan: -2 units PRBC today -CT c/a/p today Subjective: no further nasa bleeding. left flank bruising is present but has not increased. no abd or flank pain. VSS. Hgb has decreased Objective: Vital Signs Temp Pulse Resp BP Pulse Ox 36.9 C 90 16 117/70 97 02/23/18 09:00 02/23/18 09:00 02/23/18 09:00 02/23/18 09:00 02/23/18 09:00 Laboratory Results 02/23/18 03:53 02/20/18 05:10 02/22/18 02/23/18 02/24/18 05:59 05:59 05:59 Intake Total 440 1580 Output Total 150 475 Balance 290 1580 -475 PT 15.1 SEC (12.0-15.0) H 02/21/18 06:30 INR 1.17 (0.83-1.16) H 02/21/18 06:30 - Physical Exam Constitutional: no apparent distress Eyes: PERRL, EOMI Ears, Nose, Mouth, Throat: moist mucous membranes Cardiovascular: No edema Respiratory: no respiratory distress Gastrointestinal: soft, non-tender abdomen, other (left flank bruising, non tender to palpation) Skin: warm Musculoskeletal: full muscle strength Neurologic: AAOx3 Psychiatric: interacting appropriately, not anxious, not encephalopathic Lymph, Heme, Immunologic: No petechiae ICD10 Worksheet Patient Problems: Problems Problem Status Onset Acute ITP Acute ~02/01/18 Oral mucosal lesion Acute Thrombocytopenia Acute
[2018-02-23] MEDS ORDERED: IOPAMIDOL (ISOVUE-300) 100 ML BTL ONE (17:40)
[2018-02-23] MEDS ORDERED: OXYCODONE/APAP 5/325 TAB PO PRN (17:44)
[2018-02-23 21:14] LABS: PLATELET COUNT 3 10^3/uL (150-400)
[2018-02-24] MEDS: LORazepam 1 MG TAB PO PRN ×3 (08:50→20:18)
[2018-02-24] MEDS: SENNOSIDES/DOCUSATE SODIUM TAB PO SCH (12:24)
--- NOTE | 2018-02-24 14:45 | SOAPPROG ---
SOAP Progress Note Assessment/Plan: Assessment/Plan: 47 yo man w severe thrombocytopenia 1. presumed refractory ITP but no response to therapy thus far High dose dex x 2 courses Rituxan (02/05, 02/13, 02/20, due 02/27) IVIG 1g/kg x 2 days Splenectomy 02/14 path normal Nplate (1mcg/kg 02/07, 2mcg/kg 02/11, 4mcg/kg 02/18) - repeat dose at 6mcg/kg tomorrow + H pylori treatment understands that second line therapies can have delayed response No other findings to suggest other cause of thrombocytopenia (but small M protein, normal light chains) BMBx done 02/22 - path pending Next Rituxan 02/27 to complete 4 weeks next dose Nplate tomorrow; will titrate up could use amicar for bleeding flow pending CMV negative 2. anemia - better after 2u PRBCs yesterday due to #1 CT CAP - 1.9 nodule in splenic bed? would like surgery to look at films 3. elevated LDH - raises possibility of lymphoproliferative d/o spleen path nml 02/24/18 14:46 Subjective: pt angry this morning Reports bleeding has stopped denies abd pain Objective: Vital Signs Temp Pulse Resp BP Pulse Ox 36.5 C 84 18 132/74 H 97 02/24/18 08:00 02/24/18 08:00 02/24/18 08:00 02/24/18 08:00 02/24/18 08:00 Laboratory Results 02/24/18 08:15 02/24/18 08:15 02/23/18 02/24/18 02/25/18 05:59 05:59 05:59 Intake Total 1580 Output Total 475 Balance 1580 -475 PT 15.1 SEC (12.0-15.0) H 02/21/18 06:30 INR 1.17 (0.83-1.16) H 02/21/18 06:30 Gen - NAD HEENT - anicteric, OP clear CV - RRR abd - ecchymosis left flank and KRISH Ext - no edema; bruising improved ICD10 Worksheet Patient Problems: Problems Problem Status Onset Acute ITP Acute ~02/01/18 Oral mucosal lesion Acute Thrombocytopenia Acute
[2018-02-24] MEDS: ACETAMINOPHEN 325 MG TAB PO PRN ×2 (15:38→20:21)
--- NOTE | 2018-02-24 16:17 | HOSPPROG ---
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 Completed treatment for h pylori. Per heme, may take several weeks for ritux and Nplate to take effect. - Bone marrow biopsy on 02/22. Results pending - 4th dose of rituximab due 02/27 - Can get next dose of Nplate on 02/25 - Follow up CMV abs, anti-phospholipid abs to eval for alternate causes - Possible CT c/a/p this week pending above - no indication for platelet transfusion today # Blood loss anemia: Suspect oozing into splenic bed evidenced by large left flank ecchymosis. Hemodynamics stable - s/p 2 units PRBC on 02/24 -no obvious current bleeding # Epistaxis - stable with rhino rocket - discussed with Dr Hugo with ENT who stopped by room today; call Dr Hugo with update when closer to dc - would like to remove packing prior to dc - cont afrin prn - cont amox for ppx #?1.9 cm nodule splenic surgical bed: -no abd pain -flank bruising has not progressed. appears receding -If symptoms worsen, consider a surgical consult # EtOH use - not in w/d # Tobacco use # Social - frustration improved; homeless # Dispo - Remain inpatient with critically low platelets and intermittent bleeding requiring blood transfusions. Plan: Hgb increase noted to be higher than expected after 2 units. Platelets still low but present cont with current mgmt no indication for transfusion at this point. Subjective: no overnight events. no abd pain. no increase to bruising. Objective: Vital Signs Temp Pulse Resp BP Pulse Ox 37.2 C 93 18 118/64 96 02/24/18 15:34 02/24/18 15:34 02/24/18 08:00 02/24/18 15:34 02/24/18 15:34 Laboratory Results 02/24/18 08:15 02/24/18 08:15 02/23/18 02/24/18 02/25/18 05:59 05:59 05:59 Intake Total 1580 Output Total 475 Balance 1580 -475 PT 15.1 SEC (12.0-15.0) H 02/21/18 06:30 INR 1.17 (0.83-1.16) H 02/21/18 06:30 - Physical Exam Constitutional: no apparent distress Eyes: PERRL, EOMI Ears, Nose, Mouth, Throat: moist mucous membranes, hearing normal Cardiovascular: regular rate and rhythym Respiratory: no respiratory distress Gastrointestinal: normoactive bowel sounds, soft, non-tender abdomen Skin: warm Neurologic: AAOx3 Psychiatric: interacting appropriately, not anxious, not encephalopathic Lymph, Heme, Immunologic: No petechiae ICD10 Worksheet Patient Problems: Problems Problem Status Onset Acute ITP Acute ~02/01/18 Oral mucosal lesion Acute Thrombocytopenia Acute
--- NOTE | 2018-02-24 18:11 | SOAPPROG ---
SOAP Progress Note Assessment/Plan: Assessment: 47 male with unresponsive ITP, epistaxis and platelet ct of <3000 exam: abd nontender with no scars chest clear heent nonicteric cor rr risks and options fully discussed Plan:will arrange lap splenectomy in the am 02/13/18 13:19 02/14/18 21:31 POSTOP SPLENECTOMY/DOING VERY WELL/VITAL SIGNS STABLE/MINIMAL PAIN/NO EVIDENCE OF BLEEDING 02/24/18 18:09 ABDOMEN IS SOFT DESPITE THE FREE AIR NOTED LAST NIGHT/AFEBRILE/VITAL SIGNS STABLE/EATING WELL/NORMAL GI FUNCTION PATIENT REFUSED CHEST X-RAY TODAY TO FOLLOW-UP ON FREE AIR/ PLATELETS REMAIN LOW, BONE MARROW RESULTS PENDING Objective: Vital Signs Temp Pulse Resp BP Pulse Ox 37.2 C 93 18 118/64 96 02/24/18 15:34 02/24/18 15:34 02/24/18 08:00 02/24/18 15:34 02/24/18 15:34 Laboratory Results 02/24/18 08:15 02/24/18 08:15 02/23/18 02/24/18 02/25/18 05:59 05:59 05:59 Intake Total 1580 Output Total 475 Balance 1580 -475 PT 15.1 SEC (12.0-15.0) H 02/21/18 06:30 INR 1.17 (0.83-1.16) H 02/21/18 06:30 ICD10 Worksheet Patient Problems: Problems Problem Status Onset Acute ITP Acute ~02/01/18 Oral mucosal lesion Acute Thrombocytopenia Acute
[2018-02-24] MEDS: MELATONIN 3 MG TAB PO PRN (20:17)
[2018-02-24] MEDS: MBX SOLN 30 ML BOTTLE PO PRN (20:18)
[2018-02-24 21:43] LABS: PLATELET COUNT 3 10^3/uL (150-400)
[2018-02-25 05:24] LABS: PLATELET COUNT 3 10^3/uL (150-400)
[2018-02-25] MEDS: ACETAMINOPHEN 325 MG TAB PO PRN ×2 (07:55→22:56)
[2018-02-25] MEDS: LORazepam 1 MG TAB PO PRN ×3 (07:57→22:55)
--- NOTE | 2018-02-25 08:40 | HOSPPROG ---
Hospitalist Progress Note Assessment/Plan: #ITP: not responsive to meds. IVIG x 2 days. 4th dose Rituxan 02/27, next N- plate 02/25. BM biopsy 02/22, no cancer s/p splenectomy -start Vincristine today #Epistaxis: rocket in place. Dr. Hugo following. Amox for ppx #ABLA: oozing in splenic bed, possible nodule there. 2 units RBC 02/23. Dr. Hanley following. Refused xray to eval for free air #Tobacco abuse: patch #Etoh dependence: no signs of w/d #Disp: inpatient admission for chemo. Discussed with Dr. Barney Subjective: agitated, " I want to leave" Objective: Vital Signs Temp Pulse Resp BP Pulse Ox 37.2 C 74 14 110/74 95 02/25/18 05:56 02/25/18 05:56 02/25/18 05:56 02/25/18 05:56 02/25/18 05:56 Laboratory Results 02/25/18 04:36 02/24/18 08:15 02/24/18 02/25/18 02/26/18 05:59 05:59 05:59 Intake Total 150 Output Total 475 Balance -475 150 PT 15.1 SEC (12.0-15.0) H 02/21/18 06:30 INR 1.17 (0.83-1.16) H 02/21/18 06:30 - Time Spent With Patient Time Spent with Patient: greater than 35 minutes Time Spent with Patient: Greater than 35 minutes spent on this patients care, greater than 50% of time spent counseling, educating, and coordinating care regarding the above mentioned plan. - Physical Exam Constitutional: no apparent distress Eyes: PERRL Ears, Nose, Mouth, Throat: moist mucous membranes, other (rocket in nare) Cardiovascular: regular rate and rhythym, no murmur, rub, or gallop Respiratory: no respiratory distress Gastrointestinal: normoactive bowel sounds Genitourinary: No etienne in urethra Musculoskeletal: other (large hematoma left flank) Neurologic: AAOx3, CN II-XII Intact Psychiatric: other (agitated, swearing) ICD10 Worksheet Patient Problems: Problems Problem Status Onset Acute ITP Acute ~02/01/18 Oral mucosal lesion Acute Thrombocytopenia Acute
--- NOTE | 2018-02-25 10:16 | SOAPPROG ---
SOAP Progress Note Assessment/Plan: Assessment: 47 y/o M s/p splenectomy for ITP POD S: No complaints. O: Alert Afebrile VSS Plt >3 RRR No increased WOB Abdomen: soft, nontender, ecchymosis surrounding incision, normoactive bowel sounds Plan: Pt agreed to upright chest xray this am to follow up on free air from CT. 02/25/18 10:15 Objective: Vital Signs Temp Pulse Resp BP Pulse Ox 37.2 C 74 14 110/74 95 02/25/18 05:56 02/25/18 05:56 02/25/18 05:56 02/25/18 05:56 02/25/18 05:56 Laboratory Results 02/25/18 04:36 02/24/18 08:15 02/24/18 02/25/18 02/26/18 05:59 05:59 05:59 Intake Total 150 Output Total 475 Balance -475 150 PT 15.1 SEC (12.0-15.0) H 02/21/18 06:30 INR 1.17 (0.83-1.16) H 02/21/18 06:30 ICD10 Worksheet Patient Problems: Problems Problem Status Onset Acute ITP Acute ~02/01/18 Oral mucosal lesion Acute Thrombocytopenia Acute
--- NOTE | 2018-02-25 10:19 | SOAPPROG ---
SOAP Progress Note Assessment/Plan: Assessment: 47 male with unresponsive ITP, epistaxis and platelet ct of <3000 exam: abd nontender with no scars chest clear heent nonicteric cor rr risks and options fully discussed Plan:will arrange lap splenectomy in the am 02/13/18 13:19 02/14/18 21:31 POSTOP SPLENECTOMY/DOING VERY WELL/VITAL SIGNS STABLE/MINIMAL PAIN/NO EVIDENCE OF BLEEDING 02/24/18 18:09 ABDOMEN IS SOFT DESPITE THE FREE AIR NOTED LAST NIGHT/AFEBRILE/VITAL SIGNS STABLE/EATING WELL/NORMAL GI FUNCTION PATIENT REFUSED CHEST X-RAY TODAY TO FOLLOW-UP ON FREE AIR/ PLATELETS REMAIN LOW, BONE MARROW RESULTS PENDING 02/25/18 10:18 ABD REMAINS SOFT, NONTENDER/ AFEBRILE/ WOUND OK/ PLTS STILL <3K/ HCT 35 AGREES TO FU CXR TODAY TO EVAL FREE AIR Objective: Vital Signs Temp Pulse Resp BP Pulse Ox 37.2 C 74 14 110/74 95 02/25/18 05:56 02/25/18 05:56 02/25/18 05:56 02/25/18 05:56 02/25/18 05:56 Laboratory Results 02/25/18 04:36 02/24/18 08:15 02/24/18 02/25/18 02/26/18 05:59 05:59 05:59 Intake Total 150 Output Total 475 Balance -475 150 PT 15.1 SEC (12.0-15.0) H 02/21/18 06:30 INR 1.17 (0.83-1.16) H 02/21/18 06:30 ICD10 Worksheet Patient Problems: Problems Problem Status Onset Acute ITP Acute ~02/01/18 Oral mucosal lesion Acute Thrombocytopenia Acute
[2018-02-25] MEDS ORDERED: ROMIPLOSTIM 250 MCG/0.5 ML SC ONE (11:00)
--- NOTE | 2018-02-25 13:39 | SOAPPROG ---
SOAP Progress Note Assessment/Plan: Assessment/Plan: 47 yo man w severe thrombocytopenia 1. Severe refractory ITP w no response to therapy thus far to first tier recommended therapy High dose dex x 2 courses Rituxan (02/05, 02/13, 02/20, due 02/27) IVIG 1g/kg x 2 days Splenectomy 02/14 path normal Nplate (1mcg/kg 02/07, 2mcg/kg 02/11, 4mcg/kg 02/18) - repeat dose at 6mcg/kg today + H pylori treatment No other findings to suggest other cause of thrombocytopenia (but small M protein, normal light chains) BMBx done 02/22 - confirms ITP, no malignancy; flow wnl Next Rituxan 02/27 to complete 4 weeks next dose Nplate today; will titrate up could use amicar for bleeding Will start vincristine dosed at 2mg weekly x 3 doses for rapid response based on literature support and Blood journals recs in 2015 2. anemia - better after 2u PRBCs 02/23 due to #1 CT CAP - 1.9 nodule in splenic bed? 3. Chemotherapy - consent done orders written pre med w steroids and anti-emetics will need a PICC (vincristine is a vesicant) 02/25/18 13:35 Subjective: No acute events remains angry Objective: Vital Signs Temp Pulse Resp BP Pulse Ox 37.2 C 74 14 110/74 95 02/25/18 05:56 02/25/18 05:56 02/25/18 05:56 02/25/18 05:56 02/25/18 05:56 Laboratory Results 02/25/18 04:36 02/24/18 08:15 02/24/18 02/25/18 02/26/18 05:59 05:59 05:59 Intake Total 150 Output Total 475 Balance -475 150 PT 15.1 SEC (12.0-15.0) H 02/21/18 06:30 INR 1.17 (0.83-1.16) H 02/21/18 06:30 Gen - NAD HEENT - left nasal rhino rocket CV -RRR Abd - ecchymoses left flank, LUQ Ext - bruising improved Neuro - nonfocal ICD10 Worksheet Patient Problems: Problems Problem Status Onset Acute ITP Acute ~02/01/18 Oral mucosal lesion Acute Thrombocytopenia Acute
[2018-02-25] MEDS ORDERED: ALTEPLASE 2 MG VIAL IVP PRN (14:20)
[2018-02-25] MEDS ORDERED: ONDANSETRON HCL PF 8 MG, DEXAMETHASONE 10 MG in NS 50 ML IV ONE (17:30)
[2018-02-25] MEDS ORDERED: VINCRISTINE IV ONE (18:00)
[2018-02-25] MEDS ORDERED: vinCRIStine 2 MG in NS 59 ML IV ONE (18:00)
[2018-02-25] MEDS ORDERED: NS IV ONE (18:00)
[2018-02-25] MEDS: MELATONIN 3 MG TAB PO PRN (22:55)
[2018-02-26 06:51] LABS: PLATELET COUNT 5 10^3/uL (150-400)
[2018-02-26] MEDS: LORazepam 1 MG TAB PO PRN ×3 (09:35→19:37)
--- NOTE | 2018-02-26 09:53 | SOAPPROG ---
SOAP Progress Note Assessment/Plan: Assessment: SOAP Progress Note Assessment/Plan: Assessment/Plan: 47 yo man w severe thrombocytopenia 1. Severe refractory ITP w no response to therapy thus far to first tier recommended therapy High dose dex x 2 courses Rituxan (02/05, 02/13, 02/20, due 02/27) IVIG 1g/kg x 2 days Splenectomy 02/14 path normal Nplate (1mcg/kg 02/07, 2mcg/kg 02/11, 4mcg/kg 02/18) - repeat dose at 6mcg/kg today + H pylori treatment No other findings to suggest other cause of thrombocytopenia (but small M protein, normal light chains) BMBx done 02/22 - confirms ITP, no malignancy; flow wnl Next Rituxan 02/27 to complete 4 weeks next dose Nplate today; will titrate up could use amicar for bleeding Will start vincristine dosed at 2mg weekly x 3 doses for rapid response based on literature support and Blood journals recs in 2016 2. anemia - better after 2u PRBCs 02/23 due to #1 CT CAP - 1.9 nodule in splenic bed? 3. Chemotherapy - consent done orders written pre med w steroids and anti-emetics will need a PICC (vincristine is a vesicant) Plan: 02/26/18 09:52 Objective: Vital Signs Temp Pulse Resp BP Pulse Ox 36.7 C 74 16 114/78 96 02/26/18 07:52 02/26/18 07:52 02/26/18 07:52 02/26/18 07:52 02/26/18 07:52 Laboratory Results 02/26/18 06:20 02/24/18 08:15 02/25/18 02/26/18 02/27/18 05:59 05:59 05:59 Intake Total 150 750 Balance 150 750 PT 15.1 SEC (12.0-15.0) H 02/21/18 06:30 INR 1.17 (0.83-1.16) H 02/21/18 06:30 ICD10 Worksheet Patient Problems: Problems Problem Status Onset Acute ITP Acute ~02/01/18 Oral mucosal lesion Acute Thrombocytopenia Acute
--- NOTE | 2018-02-26 14:00 | HOSPPROG ---
Hospitalist Progress Note Assessment/Plan: #ITP: not responsive to meds. IVIG x 2 days. -4th dose Rituxan 02/27, next N-plate 02/25. BM biopsy 02/22 confirms ITP -s/p splenectomy -Vincristine 02/25 2mg, then weekly for 3 total doses #Epistaxis: rocket in place. Dr. Hugo following. Amox for ppx #ABLA: oozing in splenic bed, possible nodule there. 2 units RBC 02/23. Dr. Hanley following. Refused xray to eval for free air #Tobacco abuse: patch #Etoh dependence: no signs of w/d #Disp: inpatient admission for chemo. Subjective: more hopeful today Objective: Vital Signs Temp Pulse Resp BP Pulse Ox 36.7 C 74 16 114/78 96 02/26/18 07:52 02/26/18 07:52 02/26/18 07:52 02/26/18 07:52 02/26/18 07:52 Laboratory Results 02/26/18 06:20 02/24/18 08:15 02/25/18 02/26/18 02/27/18 05:59 05:59 05:59 Intake Total 150 750 Balance 150 750 PT 15.1 SEC (12.0-15.0) H 02/21/18 06:30 INR 1.17 (0.83-1.16) H 02/21/18 06:30 - Time Spent With Patient Time Spent with Patient: greater than 25 minutes Time Spent with Patient: Greater than 25 minutes spent on this patients care, greater than 50% of time spent counseling, educating, and coordinating care regarding the above mentioned plan. - Physical Exam Constitutional: no apparent distress Eyes: PERRL Ears, Nose, Mouth, Throat: moist mucous membranes, other (rocket in left nare) Cardiovascular: regular rate and rhythym Respiratory: no respiratory distress Gastrointestinal: normoactive bowel sounds Genitourinary: no bladder fullness Skin: warm Musculoskeletal: other (left flank hematoma. Surgical incision healing well) Neurologic: AAOx3, CN II-XII Intact Psychiatric: interacting appropriately ICD10 Worksheet Patient Problems: Problems Problem Status Onset Acute ITP Acute ~02/01/18 Oral mucosal lesion Acute Thrombocytopenia Acute
--- NOTE | 2018-02-26 15:29 | ASMTCMCOM ---
CM Note CM Note Notes: Pt is now on chemotherapy for his refractory thromboctytopenia. Pt is hommmmmeless and will likely remain inpt during this treatment. Pt has a bed at [facility] and will return there at [place]. Date Signed: 02/26/2018 03:28 PM Electronically Signed By:Rizwana Chung LCSW
[2018-02-26] MEDS: MELATONIN 3 MG TAB PO PRN (19:35)
[2018-02-27 05:43] LABS: PLATELET COUNT 4 10^3/uL (150-400)
--- NOTE | 2018-02-27 09:15 | SOAPPROG ---
SOAP Progress Note Assessment/Plan: Assessment: SOAP Progress Note Assessment/Plan: Assessment/Plan: 47 yo man 1. Severe refractory ITP w no response to therapy thus far to first tier recommended therapy -High dose dex x 2 courses -Rituxan (02/05, 02/13, 02/20, due 02/27), last of 4 infusions today -IVIG 1g/kg x 2 days -Splenectomy 02/14 path normal -Nplate (1mcg/kg 02/07, 2mcg/kg 02/11, 4mcg/kg 02/18, 6 mcg/kg 02/25) - + H pylori treatment -Vincristine 2mg weekly x 3 doses (first dose 02/26) No other findings to suggest other cause of thrombocytopenia (but small M protein, normal light chains) BMBx done 02/22 - confirms ITP, no malignancy; flow wnl could use amicar for bleeding 2. anemia - better after 2u PRBCs 02/23 due to #1 CT CAP - 1.9 nodule in splenic bed? 3. Venous access-has PICC 4. Epistaxis-no further bleeding, has rhino rocket in Subjective: Frustrated, no additional bleeding Objective: Vital Signs Temp Pulse Resp BP Pulse Ox 36.7 C 98 16 115/64 93 02/26/18 22:25 02/26/18 22:25 02/26/18 22:25 02/26/18 22:25 02/26/18 22:25 Laboratory Results 02/27/18 05:15 02/24/18 08:15 02/26/18 02/27/18 02/28/18 05:59 05:59 05:59 Intake Total 750 1250 Balance 750 1250 PT 15.1 SEC (12.0-15.0) H 02/21/18 06:30 INR 1.17 (0.83-1.16) H 02/21/18 06:30 Physical Exam - Physical Exam General Appearance: alert, no apparent distress EENT: other (no epistaxis, has rhino rocket in) Extremities: No pedal edema ICD10 Worksheet Patient Problems: Problems Problem Status Onset Acute ITP Acute ~02/01/18 Oral mucosal lesion Acute Thrombocytopenia Acute
[2018-02-27] MEDS ORDERED: ACETAMINOPHEN 325 MG TAB PO ONE (09:30)
[2018-02-27] MEDS ORDERED: diphenhydrAMINE 50 MG CAP PO ONE (09:30)
[2018-02-27] MEDS ORDERED: riTUXimab 600 MG in NS 540 ML IV ONE (10:00)
--- NOTE | 2018-02-27 10:10 | HOSPPROG ---
Hospitalist Progress Note Assessment/Plan: #ITP: not responsive to meds. IVIG x 2 days. -4th dose Rituxan 02/27, next N-plate 02/25. BM biopsy 02/22 confirms ITP -s/p splenectomy -Vincristine 02/25 2mg, then weekly for 3 total doses #Acute mood d/o: very frustrated. Feels as though nothing effective. Plan for Veena Galdamez to consult for coping mechanisms, he declined #Epistaxis: rocket in place. Dr. Hugo following. Amox for ppx #ABLA: oozing in splenic bed, possible nodule there. 2 units RBC 02/23. H/H has been stable #Tobacco abuse: patch #Etoh dependence: no signs of w/d #Disp: inpatient admission for chemo. Subjective: frustrated Objective: Vital Signs Temp Pulse Resp BP Pulse Ox 36.7 C 98 16 115/64 93 02/26/18 22:25 02/26/18 22:25 02/26/18 22:25 02/26/18 22:25 02/26/18 22:25 Laboratory Results 02/27/18 05:15 02/24/18 08:15 02/26/18 02/27/18 02/28/18 05:59 05:59 05:59 Intake Total 750 1250 Balance 750 1250 PT 15.1 SEC (12.0-15.0) H 02/21/18 06:30 INR 1.17 (0.83-1.16) H 02/21/18 06:30 - Time Spent With Patient Time Spent with Patient: greater than 25 minutes Time Spent with Patient: Greater than 25 minutes spent on this patients care, greater than 50% of time spent counseling, educating, and coordinating care regarding the above mentioned plan. - Physical Exam Constitutional: no apparent distress Eyes: PERRL Ears, Nose, Mouth, Throat: moist mucous membranes Cardiovascular: regular rate and rhythym Respiratory: no respiratory distress Gastrointestinal: normoactive bowel sounds Genitourinary: no bladder fullness Skin: warm Musculoskeletal: other (abd surgical incision healing, left flank hematoma) Neurologic: AAOx3, CN II-XII Intact Psychiatric: interacting appropriately ICD10 Worksheet Patient Problems: Problems Problem Status Onset Acute ITP Acute ~02/01/18 Oral mucosal lesion Acute Thrombocytopenia Acute
[2018-02-27] MEDS: MELATONIN 3 MG TAB PO PRN (21:09)
[2018-02-27] MEDS: ACETAMINOPHEN 325 MG TAB PO PRN (21:09)
[2018-02-27] MEDS: LORazepam 1 MG TAB PO PRN (21:09)
[2018-02-27] MEDS: POLYETHYLENE GLYCOL 3350 17 GM PKT PO PRN (21:21)
[2018-02-28] MEDS: LORazepam 1 MG TAB PO PRN ×2 (05:47→21:19)
[2018-02-28] MEDS: ACETAMINOPHEN 325 MG TAB PO PRN ×2 (05:47→16:59)
[2018-02-28 06:01] LABS: PLATELET COUNT 6 10^3/uL (150-400)
--- NOTE | 2018-02-28 11:26 | SOAPPROG ---
SOAP Progress Note Assessment/Plan: Assessment: Assessment/Plan: 47 yo man 1. Severe refractory ITP w no response to therapy thus far to first tier recommended therapy -High dose dex x 2 courses -Rituxan (02/05, 02/13, 02/20, due 02/27), last of 4 infusions today -IVIG 1g/kg x 2 days -Splenectomy 02/14 path normal -Nplate (1mcg/kg 02/07, 2mcg/kg 02/11, 4mcg/kg 02/18, 6 mcg/kg 02/25) - + H pylori treatment -Vincristine 2mg weekly x 3 doses (first dose 02/26) No other findings to suggest other cause of thrombocytopenia (but small M protein, normal light chains) BMBx done 02/22 - confirms ITP, no malignancy; flow wnl could use amicar for bleeding 2. anemia - better after 2u PRBCs 02/23 due to #1 CT CAP - 1.9 nodule in splenic bed? 3. Venous access-has PICC 4. Epistaxis-no further bleeding, has rhino rocket in, if plts continue to rise , consider removal Plan:Feels better, continue to observe 02/28/18 11:23 Objective: Vital Signs Temp Pulse Resp BP Pulse Ox 98.4 F 73 12 116/70 97 02/28/18 08:18 02/28/18 08:18 02/28/18 08:18 02/28/18 08:18 02/28/18 08:18 Laboratory Results 02/28/18 05:30 02/24/18 08:15 02/27/18 02/28/18 03/01/18 05:59 05:59 05:59 Intake Total 1250 1186 Balance 1250 1186 PT 15.1 SEC (12.0-15.0) H 02/21/18 06:30 INR 1.17 (0.83-1.16) H 02/21/18 06:30 Physical Exam - Physical Exam General Appearance: alert, no apparent distress EENT: other (Rocket left nares) Abdomen: other (post surgical changes, splenectomy) ICD10 Worksheet Patient Problems: Problems Problem Status Onset Acute ITP Acute ~02/01/18 Oral mucosal lesion Acute Thrombocytopenia Acute
--- NOTE | 2018-02-28 12:32 | HOSPPROG ---
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 IVIG x 2 days. 4th dose Rituxan 02/27, next N-plate 02/25. BM biopsy 02/22 confirms ITP s/p splenectomy Vincristine 02/25 2mg, then weekly for 3 total doses platelets may be starting to rise Acute mood d/o: very frustrated. Feels as though nothing effective. Plan for Veena Galdamez to consult for coping mechanisms, he declined 02/28- in better spirits Epistaxis: rocket in place. Dr. Hugo following. Amox for ppx 02/28- i spoe w ent and they will change today or tomorrow ABLA: oozing in splenic bed, possible nodule there. 2 units RBC 02/23. H/H has been stable Tobacco abuse: patch Etoh dependence: no signs of w/d Disp: inpatient admission for chemo. Subjective: case d/w dr lacy. nasal rocket has been in > 1 week Objective: Vital Signs Temp Pulse Resp BP Pulse Ox 36.9 C 73 12 116/70 97 02/28/18 08:18 02/28/18 08:18 02/28/18 08:18 02/28/18 08:18 02/28/18 08:18 Laboratory Results 02/28/18 05:30 02/24/18 08:15 02/27/18 02/28/18 03/01/18 05:59 05:59 05:59 Intake Total 1250 1186 Balance 1250 1186 PT 15.1 SEC (12.0-15.0) H 02/21/18 06:30 INR 1.17 (0.83-1.16) H 02/21/18 06:30 - Physical Exam Constitutional: no apparent distress, appears nourished Eyes: PERRL, anicteric sclera Ears, Nose, Mouth, Throat: moist mucous membranes, hearing normal, other (old looking nasal rocket i nL nare) Cardiovascular: regular rate and rhythym, no murmur, rub, or gallop, No tachycardia Respiratory: no respiratory distress, no rales or rhonchi Gastrointestinal: normoactive bowel sounds, soft, non-tender abdomen, other ( splenectmomy scar c/d/i) Genitourinary: no bladder fullness, No etienne in urethra Skin: warm, normal color Musculoskeletal: full muscle strength, no muscle tenderness Neurologic: AAOx3 Psychiatric: interacting appropriately ICD10 Worksheet Patient Problems: Problems Problem Status Onset Acute ITP Acute ~02/01/18 Oral mucosal lesion Acute Thrombocytopenia Acute
--- NOTE | 2018-02-28 13:55 | GCON ---
[f rep st] CONSULTATION DATE OF CONSULTATION: 02/28/2018 Patient is a 47-year-old male with a history of ITP. He has been in the hospital for 2 weeks current ly. During his stay here, he developed epistaxis, and a Rapid Rhino pack was placed on the left abou t 1 week ago. Patient states he was not having that much bleeding. He has certainly not bled for th e past week. He states the pack has been deflated for quite some time without any issues. SOCIAL HISTORY: The patient is currently wearing a patch. SURGICAL HISTORY: Significant for splenectomy. REVIEW OF SYSTEMS: Review of systems is otherwise negative. PHYSICAL EXAMINATION: GENERAL: Patient is alert and oriented, sitting over in his chair with a pack in place. HEAD: Atraumatic, normocephalic. NOSE: Right side was clear. Left with a posterior Ra pid Rhino pack in place that is currently deflated. OROPHARYNX: Clear. NECK: Supple. PROCEDURE: The Rapid Rhino pack was easily removed with no bleeding. Patient tolerated well. ASSESSMENT/PLAN: Patient with idiopathic thrombocytopenic purpura. His platelet count is up to 6 to day. I reviewed his case with Dr. Avina as well as Dr. Aj, and we elected not to replace th e pack as he is not having any current bleeding. Should he begin with any bleeding, please feel free to contact us, we would be happy to put a new pack in place. In the interim, he is to use Afrin b.i.d. for 1 week, and we discussed precautions such as no heavy l ifting. No bending over, no hot showers, and no nose blowing. /[id number]/MODL
--- NOTE | 2018-02-28 15:22 | ASMTCMCOM ---
CM Note CM Note Notes: Patient currently receiving chemo in house. He will likely be inpatient during this course. Continue to anticipate a d/c to the homeless longterm when medically stable. CM will continue to follow along for needs. Date Signed: 02/28/2018 03:21 PM Electronically Signed By:Frances Meier RN
[2018-02-28] MEDS: MELATONIN 3 MG TAB PO PRN (21:19)
[2018-03-01 09:11] LABS: PLATELET COUNT 11 10^3/uL (150-400)
[2018-03-01 09:30] VITALS: BP 126/72
--- NOTE | 2018-03-01 09:35 | HOSPPROG ---
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 IVIG x 2 days. 4th dose Rituxan 02/27, next N-plate 02/25. BM biopsy 02/22 confirms ITP s/p splenectomy Vincristine 02/25 2mg, then weekly for 3 total doses platelets 11! no further bleeding has follow up appointmentlucien w nicki Acute mood d/o: very frustrated. Feels as though nothing effective. Plan for Veena Galdamez to consult for coping mechanisms, he declined 02/28- in better spirits Epistaxis: rocket in place. Dr. Hugo following. Amox for ppx 02/28- i spoe w ent and they will change today or tomorrow ABLA: oozing in splenic bed, possible nodule there. 2 units RBC 02/23. H/H has been stable Tobacco abuse: patch Etoh dependence: no signs of w/d Disp: home today > 30 minutes Subjective: nasal rocket moved without bleeding. platelets 11 Objective: Vital Signs Temp Pulse Resp BP Pulse Ox 36.7 C 107 H 14 126/72 H 96 03/01/18 08:00 03/01/18 08:00 03/01/18 08:00 03/01/18 08:00 03/01/18 08:00 Laboratory Results 03/01/18 08:40 02/24/18 08:15 02/28/18 03/01/18 03/02/18 05:59 05:59 05:59 Intake Total 1186 1300 Balance 1186 1300 PT 15.1 SEC (12.0-15.0) H 02/21/18 06:30 INR 1.17 (0.83-1.16) H 02/21/18 06:30 - Physical Exam Constitutional: no apparent distress, appears nourished Eyes: PERRL, anicteric sclera Ears, Nose, Mouth, Throat: moist mucous membranes, hearing normal Cardiovascular: regular rate and rhythym, no murmur, rub, or gallop Respiratory: no respiratory distress, no rales or rhonchi Gastrointestinal: normoactive bowel sounds, soft, non-tender abdomen Genitourinary: no bladder fullness, No etienne in urethra Skin: warm, normal color Musculoskeletal: full muscle strength, no muscle tenderness Neurologic: AAOx3 ICD10 Worksheet Patient Problems: Problems Problem Status Onset Acute ITP Acute ~02/01/18 Oral mucosal lesion Acute Thrombocytopenia Acute
--- NOTE | 2018-03-01 10:17 | ASMTLACE ---
LACE Length of stay for Answers: 14 days or more current admission Comorbidities - select Answers: Any tumor (including all that apply lymphoma or leukemia) # of Emergency department Answers: 1-2 visits in the last 6 months Social determinants Answers: History of substance abuse (ETOH, street drugs, prescription drugs, etc.) Homelessness (street, halfway) Score: 16 Date Signed: 03/01/2018 09:50 AM Electronically Signed By:Lulu Avina
--- NOTE | 2018-03-01 10:18 | SOAPPROG ---
LEE Progress Note Assessment/Plan: Assessment: Assessment/Plan: 47 yo man 1. Severe refractory ITP with some sign of response today, plts 11k -High dose dex x 2 courses -Rituxan (02/05, 02/13, 02/20, due 02/27), last of 4 infusions today -IVIG 1g/kg x 2 days -Splenectomy 02/14 path normal -Nplate (1mcg/kg 02/07, 2mcg/kg 02/11, 4mcg/kg 02/18, 6 mcg/kg 02/25) - + H pylori treatment -Vincristine 2mg weekly x 3 doses (first dose 02/26) No other findings to suggest other cause of thrombocytopenia (but small M protein, normal light chains) BMBx done 02/22 - confirms ITP, no malignancy; flow wnl could use amicar for bleeding 2. anemia - better after 2u PRBCs 02/23 due to #1 CT CAP - 1.9 nodule in splenic bed? Plan:Feels better, plan is home today, follow up Dr Scott 03/04, for nplate and possible vincristine 02/28/18 11:23 03/01/18 10:03 Subjective: feels ok Objective: Vital Signs Temp Pulse Resp BP Pulse Ox 98.0 F 107 H 14 126/72 H 96 03/01/18 08:00 03/01/18 08:00 03/01/18 08:00 03/01/18 08:00 03/01/18 08:00 Laboratory Results 03/01/18 08:40 02/24/18 08:15 02/28/18 03/01/18 03/02/18 05:59 05:59 05:59 Intake Total 1186 1300 Balance 1186 1300 PT 15.1 SEC (12.0-15.0) H 02/21/18 06:30 INR 1.17 (0.83-1.16) H 02/21/18 06:30 Physical Exam - Physical Exam General Appearance: alert, no apparent distress ICD10 Worksheet Patient Problems: Problems Problem Status Onset Acute ITP Acute ~02/01/18 Oral mucosal lesion Acute Thrombocytopenia Acute
--- NOTE | 2018-03-01 10:20 | ASMTDCNOTE ---
Case Management Discharge Discharge Order Complete? Answers: Yes Patient to Obtain Answers: Independently Medications Transportation Arranged Answers: Bus Tokens Faxed Final Orders Answers: Yes Discharge Comments Notes: Pt will be returning to the [facility]. A bed has been reserved for him. He requested and was given a bus pass. He has no other CM needs. Date Signed: 03/01/2018 09:52 AM Electronically Signed By:Luul Avina
--- NOTE | 2018-03-02 09:14 | GCON ---
[f rep st] CONSULTATION DATE OF CONSULTATION: 02/23/2018 REASON FOR CONSULTATION: Free air. The patient is a 47-year-old male, who was in the hospital for thrombocytopenia and underwent a splen ectomy approximately 2 weeks ago. I was reconsulted on the patient because of findings of free air o n a CT scan, which seemed to be more free air than he should have postoperatively 8 days after a sple nectomy. Presently, the patient is complaining of no significant abdominal pain and no GI symptoms. He is eating well with normal bowel movements. PHYSICAL EXAM: HEENT: Head and neck exam is nonicteric without adenopathy. GENERAL: Reveals him t o be alert, oriented, in no acute distress and afebrile. CHEST: Clear. CARDIAC: Exam was regular rhythm. ABDOMEN: Soft, nontender. His wounds are healing well with some ecchymosis around the inci loreta. There are no peritoneal signs. No masses. No distention. No hernias. Genitalia are normal. EXTREMITIES: Benign, with full range of motion, full pulses. IMPRESSION: Free abdominal air, most likely still left from his previous laparoscopy. His CT scan r eveals no evidence of leakage or fluid in the abdomen. I think this is probably a benign situation d espite the unusual longevity of the free air. Would recommend close followup, possible consideration for antibiotic coverage until this is more resolved. /[id number]/MODL
--- NOTE | 2018-03-08 19:55 | GCON ---
DATE OF CONSULTATION: 02/13/2018 Patient is a 47-year-old male with significant unresponsive ITP and persistent platelet count less th an 3000. He has had ongoing nosebleeds and other complications. I was consulted for possibility of splenectomy. Risks and options have been fully discussed with the patient, who agrees to proceed wit h surgery in the morning. He is fully aware that this may not resolve his situation, but is a reason ably good option at this point after failing other medical therapy to elevated his platelet count. Christopher rai has not had a bone marrow biopsy yet because of his low platelet count. PAST HISTORY: Reveals no major medical problems. He has had bilateral inguinal hernia repair. REVIEW OF SYSTEMS: Negative on a full 10-point review except as related to the HPI. PRESENT MEDICATIONS: None. ALLERGIES: None. FAMILY HISTORY: Positive for breast cancer and coronary artery disease. PHYSICAL EXAMINATION: GENERAL: Reveals a healthy, somewhat cooperative 47-year-old male in no acute distress. HEAD AND NECK: Reveals no icterus. No adenopathy. No oral lesions. NECK: Supple nont libby. CHEST: Clear. CARDIAC: Regular rhythm. ABDOMEN: Soft and nontender with no organomegaly or hernias. : Genitalia normal. EXTREMITIES: Benign. Full pulses. Full range of motion. NEUR OLOGIC: Exam is physiologic. PSYCH: Reveals him to be alert, oriented, and reasonably cooperative. IMPRESSION: Recalcitrant idiopathic thrombocytopenia. PLAN: Consider laparoscopic splenectomy. Risks and options have been fully discussed, and he wishes to proceed. /[id number]/MODL
--- NOTE | 2018-03-08 20:00 | GOP ---
DATE OF OPERATION: 02/14/2018 SURGEON: Ho Hanley MD BARIATRIC COORDINATOR: LEANA Almodovar. ANESTHESIOLOGIST: Dr. Lima. PREOPERATIVE DIAGNOSIS: Idiopathic thrombocytopenic purpura. POSTOPERATIVE DIAGNOSIS: Idiopathic thrombocytopenic purpura. PROCEDURE PERFORMED: Laparoscopic splenectomy. FINDINGS: The patient was found to have good hemostasis, had a small spleen, which was removed intac t and no evidence of accessory spleen. ESTIMATED BLOOD LOSS: Blood loss was negligible. No complications. He was taken to the recovery room in good condition. DESCRIPTION OF PROCEDURE: The patient was taken to the operating room where he received a satisfacto ry general endotracheal anesthesia by Dr. Lima. He was placed in the right lateral decubitus posit ion at approximately 45 degrees and prepped and draped in the usual sterile fashion. A midline epiga stric short incision was made. A Veress needle was inserted and pneumoperitoneum was established. T rocar was introduced. Laparoscope introduced. Good visualization was obtained. Three other trocars were placed underneath the left subcostal margin under direct vision. The hepatic flexure of the co joshua was taken down with the Harmonic Scalpel and dropped away from the spleen. The posterior attachm ents of the spleen were divided with the Harmonic Scalpel. The short gastrics were then divided with the Harmonic Scalpel and the hilum was isolated. The splenic vein and splenic artery were isolated. They were then divided with the Endo-RY stapler, and the remainder of the hilum was divided with t he Harmonic Scalpel. The final attachments of the spleen to the diaphragm were removed with the Harm onic Scalpel. The spleen was then placed in a specimen bag, extracted through the upper one of the t rocar sites, which required dilatation of the trocar site. The spleen was removed intact. The wound was irrigated. Hemostasis was assured. He was given platelets after ligation of the splenic artery . Trocars removed under direct vision. Trocar sites were closed with 0 Vicryl for the fascia and 4- 0 Monocryl subcuticular stitch for the skin. All layers infiltrated with 0.5% Marcaine. /[id number]/MODL
== END 2018-03-01 11:29 | disposition home or self-care (01) | DRG 650 ==
LOC: OBSVTOIN 11:51 → F1N 13:45
PROVIDERS: ADMIT Internal Medicine; ATTEND Internal Medicine
PROC: 30233R1 Transfusion of Nonautologous Platelets into Peripheral Vein, Percutaneous Approach (ICD-10-PCS; 2018-02-04)
PROC: 3E0330M Introduction of Antineoplastic, Monoclonal Antibody, into Peripheral Vein, Percutaneous Approach (ICD-10-PCS; 2018-02-13)
PROC: 07TP4ZZ Resection of Spleen, Percutaneous Endoscopic Approach (ICD-10-PCS; principal; 2018-02-14 12:45)
PROC: 30233N1 Transfusion of Nonautologous Red Blood Cells into Peripheral Vein, Percutaneous Approach (ICD-10-PCS; 2018-02-17)
PROC: 07DR3ZX Extraction of Iliac Bone Marrow, Percutaneous Approach, Diagnostic (ICD-10-PCS; 2018-02-22)
PROC: 02HV33Z Insertion of Infusion Device into Superior Vena Cava, Percutaneous Approach (ICD-10-PCS; 2018-02-25)
PROC: 3E03305 Introduction of Other Antineoplastic into Peripheral Vein, Percutaneous Approach (ICD-10-PCS; 2018-02-25)
DX: D69.3 Immune thrombocytopenic purpura (principal); D64.9 Anemia, unspecified; F12.90 Cannabis use, unspecified, uncomplicated; K12.2 Cellulitis and abscess of mouth; R04.0 Epistaxis; F17.200 Nicotine dependence, unspecified, uncomplicated; Z59.0 Homelessness; Z72.89 Other problems related to lifestyle; Z23 Encounter for immunization
CPT/HCPCS: 82607-90; 82784-90; 85060-90; 86147-90; 86334-90; 86644-90; 86645-90; 87496-90; 88184-90; 88185-91; 88237-90; 88262-90; 88291-90; C1751; G0009; G0472; J0690; J1100; J1170; J1200; J1459; J2060; J2250; J2310; J2405; J2704; J2796; J3010; J3360; J9310; J9370; P9016; P9035; P9040; P9100; Q9967

== ENCOUNTER 2018-07-20 18:59 | Emergency (ER) | payer MEDICAID, OTHER ==
[2018-07-20 19:06] VITALS: BP 144/101
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
== END 2018-07-20 19:59 | disposition home or self-care (01) ==
LOC: EDUNIT#
DX: M25.561 Pain in right knee (principal); V03.10XA Pedestrian on foot injured in collision with car, pick-up truck or van in traffic accident, initial encounter; Y92.480 Sidewalk as the place of occurrence of the external cause